=== PATIENT | female | born 1995 | race Caucasian/White ===

== ENCOUNTER 2023-08-14 13:11 | Emergency (ER) | payer BC, OTHER, SELFPAY ==
--- NOTE | 2023-08-14 13:12 | US_ITS ---
[address] [address] Patient Name: HARRIET TOMPKINS MRN: [id number] date: 1995 Sex: F Assigned Patient Location: ER Current Patient Location: ER Accession/Order Number: [id number] Exam Date: 08/14/2023 13:45 Report Date: 08/14/2023 14:47 At the request of: GOMEZ BERG Procedure: US OB transvaginal EXAM: US OB transvaginal INDICATION: Vaginal bleeding COMPARISON: No prior obstetrical ultrasound for current gestation. TECHNIQUE: Transvaginal obstetrical ultrasound with grayscale, color and M-mode Doppler imaging. FINDINGS: AUA: 19 weeks 6 days DOROTHY: 03/12/2024. Single intrauterine gestation with normal-appearing gestational sac. Mean sac diameter 3.0 cm. 3 normal-appearing yolk sacs identified. CRL: 2.9 cm FHR: 172 bpm 3.0 x 1.5 x 1.1 cm subchorionic hematoma. Closed cervix: 4.5 cm in length. Right ovary: 3.3 x 2.2 x 2.1 cm. Corpus luteal cyst within the right ovary. Left ovary: 3.0 x 1.3 x 1.9cm. Normal color Doppler flow to the ovaries. No free fluid in the cul-de-sac. US/US OB transvaginal IMPRESSION: 1. Single viable intrauterine gestation with estimated gestational age 19 weeks 6 days and estimated date of delivery 03/12/2024 by today's ultrasound criteria. 2. Large subchorionic hematoma. 3. A total of 3 yolk sacs identified. Follow-up ultrasound in 1 to 2 weeks as more than one yolk sac can indicate multiple gestations in the appropriate clinical setting. Electronically authenticated by: PRISCILLA VICK Date: 08/14/2023 14:47
[2023-08-14 13:15] VITALS: BP 118/69; PULSE 90; RESP 16; TEMP 36.7; O2SAT 100; BMI 20.1
--- NOTE | 2023-08-14 13:22 | ED.GENADUL1 ---
HPI - General Adult General Chief complaint: Abdominal Pain Stated complaint: 9 weeks light bleeding Time Seen by Provider: 08/14/23 13:12 Source: patient Mode of arrival: walk-in Limitations: no limitations History of Present Illness HPI narrative: patient is a 27-year-old female A1 who presents to the emergency department for the evaluation of mild cramping and light vaginal bleeding at approximately nine weeks . She is seen an DIRECTOR INFORMATION SECURITY at [facility] in [place]. She has not had an ultrasound yet with this . She reports mild low back pain, no fevers or vomiting. No urinary symptoms. She has not passed any clots. Related Data Allergies Allergy/AdvReac Type Severity Reaction Status Date / Time No Known Drug Allergies Allergy Verified 08/14/23 13:18 Review of Systems ROS Constitutional Denies: fever or chills Ears, nose, mouth, and throat Denies: throat pain Cardiovascular Denies: chest pain Respiratory Denies: shortness of breath Gastrointestinal Reports: abdominal pain; Denies: nausea or vomiting Genitourinary Denies: painful urination Musculoskeletal Reports: back pain Integumentary/Breast Denies: rash Neurological Denies: headache Hematologic/Lymphatic Denies: easy bruising PFSH PFSH Social History Smoking status: Never smoker Exam Narrative Exam Narrative: Gen.: Awake, alert, in no distress Head: Normocephalic, atraumatic ENT: Moist mucous membranes Gastrointestinal: Abdomen is soft, nondistended and nontender to palpation Extremities: Moves extremities equally Psych: Normal mood and affect Neuro: No focal neuro deficit Skin: Warm, dry, intact Constitutional Vital Signs, click to edit/add: Last Vital Signs Temp 98.0 F 08/14/23 13:15 Pulse 90 08/14/23 13:15 Resp 16 08/14/23 13:15 BP 118/69 08/14/23 13:15 Pulse Ox 100 08/14/23 13:15 O2 Del Method Room Air 08/14/23 13:15 Course Vital Signs Vital signs: Vital Signs Temperature 98.0 F 08/14/23 13:15 Pulse Rate 90 08/14/23 13:15 Respiratory Rate 16 08/14/23 13:15 Blood Pressure 118/69 08/14/23 13:15 Pulse Oximetry 100 08/14/23 13:15 Oxygen Delivery Method Room Air 08/14/23 13:15 Temperature 98.0 F 08/14/23 13:15 Pulse Rate 90 08/14/23 13:15 Respiratory Rate 16 08/14/23 13:15 Blood Pressure 118/69 08/14/23 13:15 Pulse Oximetry 100 08/14/23 13:15 Oxygen Delivery Method Room Air 08/14/23 13:15 Medical Decision Making MDM Narrative Medical decision making narrative: patient with B positive blood type, quantitative hCG level tracking appropriately with her timeline of gestation. Urine specimen with no urinary tract infection. Ultrasound shows a single intrauterine gestation with appropriate cardiac activity, there is a large subchorionic hematoma. Patient is measuring nine weeks and six days. She was given instructions for pelvic rest. Continue Tylenol. She was instructed to follow closely with her DIRECTOR INFORMATION SECURITY provider due to the subchorionic hematoma. Return to the Emergency Room if symptoms change or worsen. Medical Records Medical records reviewed: Yes I reviewed the patient's medical records Lab Data Lab results reviewed: Yes I reviewed the patient's lab results Labs: Lab Results 08/14/23 08/14/23 08/14/23 Range/Units 13:24 13:34 14:30 HCG, Quant 15490 mIU/mL Urine Color Lt. yellow (YELLOW) Urine Clarity Slightly cloudy A (CLEAR) Urine pH 6.5 (5.0-9.0) Ur Specific [place] <=1.005 A (1.005-1.025) Urine Protein Negative (NEG/TRACE) mg/dL Urine Glucose (UA) Negative (NEGATIVE) mg/dL Urine Ketones Negative (NEGATIVE) mg/dL Urine Occult Blood Small A (NEGATIVE) Urine Nitrite Negative (NEGATIVE) Urine Bilirubin Negative (NEGATIVE) Urine Urobilinogen 0.2 (0.2-1.0) EU/dL Ur Leukocyte Esterase Moderate A (NEGATIVE) Urine RBC None seen (0-2) #/HPF Urine WBC 0-2 A (NONE SEEN) #/HPF Ur Squamous Epith Cells Rare (NONE/RARE) #/LPF Urine Crystals None seen (None Seen) #/HPF Urine Bacteria None seen (NONE SEEN) #/HPF Urine Casts None seen (NONE SEEN) #/LPF Urine Mucus None seen (NONE SEEN) Ur Culture Indicated? No Blood Type B Positive Imaging Data US - abdomen: Attestation: I have reviewed the pertinent imaging results. Radiologist's impression: Procedure: US OB transvaginal Begin Addendum #1 ADDENDUM: Correction to voice recognition error. AUA is 9 weeks and 6 days Original Report EXAM: US OB transvaginal INDICATION: Vaginal bleeding COMPARISON: No prior obstetrical ultrasound for current gestation. TECHNIQUE: Transvaginal obstetrical ultrasound with grayscale, color and M-mode Doppler imaging. FINDINGS: AUA: 19 weeks 6 days DOROTHY: 03/12/2024. Single intrauterine gestation with normal-appearing gestational sac. Mean sac diameter 3. 0 cm. 3 normal-appearing yolk sacs identified. CRL: 2. 9 cm FHR: 172 bpm 3. 0 x 1. 5 x 1. 1 cm subchorionic hematoma. Closed cervix: 4. 5 cm in length. Right ovary: 3. 3 x 2. 2 x 2. 1 cm. Corpus luteal cyst within the right ovary. Left ovary: 3. 0 x 1. 3 x 1. 9cm. Normal color Doppler flow to the ovaries. No free fluid in the cul-de-sac. IMPRESSION: 1. Single viable intrauterine gestation with estimated gestational age 19 weeks 6 days and estimated date of delivery 03/12/2024 by today's ultrasound criteria. 2. Large subchorionic hematoma. 3. A total of 3 yolk sacs identified. Follow-up ultrasound in 1 to 2 weeks as more than one yolk sac can indicate multiple gestations in the appropriate clinical setting. Electronically authenticated by: PRISCILLA VICK Date: 08/14/2023 15:47 Discharge Plan Discharge Chief Complaint: Abdominal Pain Clinical Impression: Vaginal bleeding affecting early , Subchorionic hematoma Time of Disposition Decision: 15:55 Condition: Good Instructions: Threatened Miscarriage (ED), Subchorionic Hemorrhage (ED) Additional Instructions: Follow up closely with your DIRECTOR INFORMATION SECURITY Stand Alone Forms: Portal Instructions Referrals: Physician,Non-Staff, MD [Primary Care Provider] - 1 week
[2023-08-14] MEDS: ACETAMINOPHEN 325 MG TABLET 650 MG PO (13:38)
[2023-08-14 15:12] LABS: Bilirubin Urine NEGATIVE (NEGATIVE); Blood Urine SMALL (NEGATIVE); Clarity Urine SLIGHTLY CLOUDY (CLEAR); Color Urine LT. YELLOW (YELLOW); Glucose Urine UA NEGATIVE (NEGATIVE); Ketones Urine NEGATIVE (NEGATIVE); Leukocyte Esterase Urine MODERATE (NEGATIVE); Nitrite Urine NEGATIVE (NEGATIVE); Protein Urine NEGATIVE (NEG/TRACE); Specific Gravity Urine <=1.005 (1.005-1.025); Urine Microscopic Indicated YES; Urobilinogen Urine 0.2 EU/dL (0.2-1.0); pH Urine 6.5 (5.0-9.0)
[2023-08-14 15:17] LABS: Bacteria Urine NONE SEEN #/HPF (NONE SEEN); Cast Seen? NONE SEEN #/LPF (NONE SEEN); Crystals Seen? None Seen #/HPF (None Seen); Mucus Urine NONE SEEN (NONE SEEN); RBC Urine NONE SEEN #/HPF (0-2); Squamous Epithelial Cell Urine RARE #/LPF (NONE/RARE); WBC Urine 0-2 #/HPF (NONE SEEN)
[2023-08-14 15:18] LABS: Urine Culture Indicated NO
== END 2023-08-14 16:02 | disposition home or self-care (01) ==
PROVIDERS: Physician Assistant; Emergency Provider Emergency Medicine; PCP Obstetrics & Gynecology
DX: O20.9 Hemorrhage in early pregnancy, unspecified (principal); O41.8X10 Other specified disorders of amniotic fluid and membranes, first trimester, not applicable or unspecified; Z3A.09 9 weeks gestation of pregnancy
CPT/HCPCS: 36415; 76817; 80048; 81001; 84702; 86900; 86901; 99285

== ENCOUNTER 2023-11-09 07:42 | Outpatient (OUT) | payer BC, OTHER, SELFPAY ==
--- NOTE | 2023-11-09 | US_ITS ---
[address] [address] Patient Name: HARRIET TOMPKINS MRN: [id number] date: 1995 Sex: F Assigned Patient Location: US Current Patient Location: US Accession/Order Number: [id number] Exam Date: 11/09/2023 09:05 Report Date: 11/12/2023 07:50 At the request of: CIELO GIBBONS Procedure: US OB cervical length EXAMINATION: US OB anatomy, US OB cervical length HISTORY: SCREENING, ANATOMICAL SURVEY Z36.89 COMPARISON: No relevant comparison available. TECHNIQUE: Transabdominal sonographic examination was performed for obstetrical and evaluation. FINDINGS: Number: 1 Heart Rate: 140.6 bpm H.B. /min Amniotic Fluid Volume: Subjectively normal position: Cephalic presentation, longitudinal lie Placental Location: Posterior. Placental edge 3.7 cm from the internal os. Grade 1. Cervix Length: 3.6 cm, closed Normal anatomy: Lateral ventricles, cerebellum, posterior fossa, nose, lips, orbits, four-chamber heart, RVOT, LVOT, diaphragm, stomach, kidneys, abdominal cord insertion, bladder, umbilical arteries, three-vessel cord, spine, extremities BIOMETRY: BPD: 5.5 cm 22 weeks 6 days , 69% HC: 20.6 cm 22 weeks 5 days, 54% AC: 17.8 cm 22 weeks 5 days, 56% FL: 3.7 cm 22 weeks 0 days , 28% EFW:502.4 grams; 1 lb. 2 oz., 50% FL/AC: 21.0 FL/BPD: 67.8 HC/AC: 1.2 GESTATIONAL AGE: Age by EDC: 22 weeks 2 days Age by current US: 22 weeks 4 days DOROTHY by current US: 03/10/2024 DOROTHY by EDC: 03/12/2024 US/US OB cervical length IMPRESSION: Normal anatomy scan Closed cervix measuring 3.6 cm *Reference: [employer] Practice Guideline for the performance of Obstetric Ultrasound Examinations, July 28, 2007. Electronically authenticated by: JAXSON KERR Date: 11/12/2023 07:50
--- NOTE | 2023-11-09 | US_ITS ---
[address] [address] Patient Name: HARRIET TOMPKINS MRN: [id number] date: 1995 Sex: F Assigned Patient Location: US Current Patient Location: US Accession/Order Number: [id number] Exam Date: 11/09/2023 09:05 Report Date: 11/12/2023 07:50 At the request of: CIELO GIBBONS Procedure: US OB anatomy EXAMINATION: US OB anatomy, US OB cervical length HISTORY: SCREENING, ANATOMICAL SURVEY Z36.89 COMPARISON: No relevant comparison available. TECHNIQUE: Transabdominal sonographic examination was performed for obstetrical and evaluation. FINDINGS: Number: 1 Heart Rate: 140.6 bpm H.B. /min Amniotic Fluid Volume: Subjectively normal position: Cephalic presentation, longitudinal lie Placental Location: Posterior. Placental edge 3.7 cm from the internal os. Grade 1. Cervix Length: 3.6 cm, closed Normal anatomy: Lateral ventricles, cerebellum, posterior fossa, nose, lips, orbits, four-chamber heart, RVOT, LVOT, diaphragm, stomach, kidneys, abdominal cord insertion, bladder, umbilical arteries, three-vessel cord, spine, extremities BIOMETRY: BPD: 5.5 cm 22 weeks 6 days , 69% HC: 20.6 cm 22 weeks 5 days, 54% AC: 17.8 cm 22 weeks 5 days, 56% FL: 3.7 cm 22 weeks 0 days , 28% EFW:502.4 grams; 1 lb. 2 oz., 50% FL/AC: 21.0 FL/BPD: 67.8 HC/AC: 1.2 GESTATIONAL AGE: Age by EDC: 22 weeks 2 days Age by current US: 22 weeks 4 days DOROTHY by current US: 03/10/2024 DOROTHY by EDC: 03/12/2024 US/US OB anatomy IMPRESSION: Normal anatomy scan Closed cervix measuring 3.6 cm *Reference: [employer] Practice Guideline for the performance of Obstetric Ultrasound Examinations, July 28, 2007. Electronically authenticated by: JAXSON KERR Date: 11/12/2023 07:50
--- OUTSIDE RECORDS SUMMARY | 2023-11-09 07:46 | XMS_ITS | CCD ---
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 Name Role Phone EDWIGE, DR BUCK Admitting Unavailable EDWIGE, DR BUCK Attending Unavailable REQUEST, NONE LISTED Primary Care Unavaila ble EDWIGE, DR BUCK Consulting Unavailable EDWIGE, DR BUCK Admitting Unavailable EDWIGE, DR BUCK Attending Unavailable REQUEST, NONE LISTED Primary Care Unavaila an KERR, DR JAXSON Fan Consulting Unavailable EDWIGE, DR BUCK Consulting Unavailable EDWIGE, CIELO Attending Unavailable Problems Problem Classification Problem Date Documented Date Episodic/Chronic Immunizations and screening for infectious disease (1 source) Encounter for screening for human papillomavirus (HPV); Translations: [ENC SCREENING HUMAN PAPILLOMAVIRUS] Onset: 05-10-2021 Episodic Lymphadenitis (4 sources) Localized enlarged lymph nodes; Translations: [LOCALIZED ENLARGED LYMPH NODES] Onset: 05-13-2021 Episodic Other screening for suspected conditions (not mental disorders or infectious disease) (4 sources) Encounter for screening for malignant neoplasm of cervix; Translations: [ENC SCREENING MALIG NEOPLASM CERV] Onset: 05-03-2021 Episodic Results Test Name Value Interpretation Reference Range Facil ity US THYROIDon 05-15-2021 US THYROID EXAMINATION: US THYROID HISTORY: Localized enlarged lymph nodes COMPARISON: No relevant comparison available. TECHNIQUE: Sonographic images of the thyroid gland were obtained. FINDINGS: The right thyroid lobe measures 3.9 x 1.1 x 4.2 cm. Normal in size, contour and echotexture with no focal nodules. The thyroid isthmus measures 2.1 mm, homogeneous. No focal nodule The left thyroid lobe measures 4.1 x 0.1 0.3 cm per normal in size, contour and echotexture with no focal nodules Identified in the left neck corresponding to the patient's palpable abnormality are 2 normal size normal morphology lymph nodes measuring 1.5 x 0.2 x 0.6 cm and 1.5 x 0.3 x 1.2 cm IMPRESSION: Normal thyroid gland Two normal size normal morphology left neck lymph nodes corresponding to the patient's palpable mass Electronically authenticated by: JAXSON KERR Date: 2021-05-15 07:09 [address] [facility] CBC AUTO DIFFon 05-13-2021 BASO # 0.1 103/ul Normal 0.0-0.[address] [facility] Comment on above: Performed By: #### C BC #### [facility] [address] [place], [place] [id number] Ellen Sally Basophils/100 WBC (Bld) 0.8 % Normal 0.2-2.0 [facility] Comment on above: Performed By: #### C BC #### [facility] [address] [place], [place] [id number] Ellen Sally EO # 0.3 103/ul Normal 0.0-0.[address] [facility] Comment on above: Performed By: #### C BC #### [facility] [address] [place], [place] [id number] Ellen Sally Eosinophils/100 WBC (Bld) 3.6 % Normal 0.9-7.0 [facility] Comment on above: Performed By: #### C BC #### [facility] [address] [place], [place] [id number] Ellen Sally Erythrocyte distribution width (RBC) [Ratio] 12.4 % Normal 11.0-15.[address] [facility] Comment on above: Performed By: #### C BC #### [facility] [address] [place], [place] [id number] Ellen Sally Hematocrit (Bld) [Volume fraction] 42.3 % Normal 36.0-48.0 [facility] Comment on above: Performed By: #### C BC #### [facility] [address] [place] [address] Ellen Sally Hemoglobin (Bld) [Mass/Vol] 14.4 g/dL Normal 12.0-16.[address] [facility] Comment on above: Performed By: #### C BC #### [facility] [address] [address] Ellen Sally IG # 0.01 10e3/ul Normal 0.00-0.03 [facility] Comment on above: Performed By: #### C BC #### [facility] [address] [address] Ellen Sally IG % 0.1 % Normal 0.0-0.5 [facility] Comment on above: Performed By: #### C BC #### [facility] [address] [place] [address] Ellen Sally LYMPH # 2.4 103/ul Normal 1.2-3.[address] [facility] Comment on above: Performed By: #### C BC #### [facility] [address] [place] [address] Ellen Sally Lymphocytes/100 WBC (Bld) 30.1 % Normal 20.5-60.0 [facility] Comment on above: Performed By: #### C BC #### [facility] [address] [place] [address] Ellen Sally MANUAL DIFF REQ NO Normal [facility] Comment on above: Performed By: #### C BC #### [facility] [address] [place] [address] Ellen Sally MCH (RBC) [Entitic mass] 30.4 pg Normal 26.7-34.0 [facility] Comment on above: Performed By: #### C BC #### [facility] [address] [place] [address] Ellen Sally MCHC (RBC) [Mass/Vol] 34.0 g/dL Normal 29.9-35.[address] [facility] Comment on above: Performed By: #### C BC #### [facility] [address] [place] [address] Ellen Sally MCV (RBC) [Entitic vol] 89.4 fL Normal 81.0-99.0 [facility] Comment on above: Performed By: #### C BC #### [facility] [address] [place] [address] Ellenaixa [place] MONO # 0.4 103/ul Normal 0.3-0.[address] [facility] Comment on above: Performed By: #### C BC #### [facility] [address] [place], [place] [id number] Ellenaixa [place] Monocytes/100 WBC (Bld) 5.4 % Normal 1.7-12.0 [facility] Comment on above: Performed By: #### C BC #### [facility] [address] [place] [address] Ellen Salyl NEUT # 4.7 103/ul Normal 1.4-6.[address] [facility] Comment on above: Performed By: #### C BC #### [facility] [address] [place], [place] [id number] Ellenaixa Zavala Neutrophils/100 WBC (Bld) 60.0 % Normal 43.0-75.[address] [facility] Comment on above: Performed By: #### C BC #### [facility] [address] [place], [place] [id number] Ellenaixa Zavala Platelet mean volume (Bld) [Entitic vol] 9.4 fL Critically low 9.5-13.[address] [facility] Comment on above: Performed By: #### C BC #### [facility] [address] [place] [address] Ellen Sally PLT 449 103/ul Normal 150-[address] [facility] Comment on above: Performed By: #### C BC #### [facility] [address] [place], [place] [id number] Ellen Sally RBC 4.73 106/ul Normal 4.20-5.[address] [facility] Comment on above: Performed By: #### C BC #### [facility] [address] [place], [place] [id number] Ellen Sally WBC 7.8 103/ul Normal 4.0-11.[address] [facility] Comment on above: Performed By: #### C BC #### [facility] [address] [place], [place] [id number] Ellen Sally PAP ACOG PANEL 2: 21 to 29on 05-08-2021 . . Normal [facility] Comment on above: Performed By: #### [id number] #### [facility] [address] [place] [address] Ellen Zavala Age Gdln ACOG Testing 21-29 Normal [facility] Comment on above: Performed By: #### [id number] #### [facility] [address] [place] [address] Ellen Zavala DIAGNOSIS: Comment Normal [facility] Comment on above: Result Comment: NEGA TIVE FOR INTRAEPITHELIAL LESION OR MALIGNANCY. Performed By: #### [id number] #### [facility] [address] [place] [address] Ellen Zavala Methodology: Comment [facility] Comment on above: Result Comment: This liquid based ThinPrep(R) pap test was screened with the use of an image guided system. Performed By: #### [id number] #### [facility] [address] [place] [address] Ellen Zavala Note: Comment [facility] Comment on above: Result Comment: The Pap smear is a screening test designed to aid in the detection of premalignant and malignant conditions of the uterine cervix. It is not a diagnostic procedure and should not be used as the sole means of detecting cervical cancer. Both false-positive and false-negative reports do occur. . Performed By: #### [id number] #### [facility] [address] [place] [address] Ellen Zavala Performed by: Comment Normal [facility] Comment on above: Result Comment: Olga Guidry, Senior Chemical Engineer (ASCP) Performed By: #### 4 [id number] #### [facility] [address] [place] [address] Ellen Zavala Reflex Criteria: Comment [facility] Comment on above: Result Comment: The HPV DNA reflex criteria were not met with this specimen result therefore, no HPV testing was performed. . Performed By: #### [id number] #### [facility] [address] [place] [address] Ellen Zavala Specimen adequacy: Comment Normal [facility] Comment on above: Result Comment: Sati sfactory for evaluation. Endocervical and/or squamous metaplastic cells (endocervical component) are present. Performed By: #### 4 [id number] #### [facility] [address] [id number] Ellen Zavala Coding Summaryon 06-25-2020 Coding Summary CODING DATE: 06/25/2020 [facility] STATUS: PAYOR: Workers Compensation ADMIT DX: REASON FOR VISIT DX: S61.210A Laceration without foreign body of right index finger without damage to nail, initial encounter FINAL DX: PRINCIPAL: O9A.212 Injury, poisoning and certain other consequences of external causes complicating , second trimester SECONDARY: S61.210A Laceration without foreign body of right index finger without damage to nail, initial encounter W26.8XXA Contact with other sharp object(s), not elsewhere classified, initial encounter Y99.0 Civilian activity done for income or pay Z3A.26 26 weeks gestation of PYMT PROC APC STAT DESCRIPTION DOCTOR NAME DATE NOTE: The code number assigned matches the documented diagnosis and / or procedure in the patient's chart. However, the narrative phrase printed from the coding software may appear abbreviated, or result in slightly different terminology. Coded By: Jesus Manuel Ayala Date Saved: 06/25/2020 11:13 am [facility] Coding Summary CODING DATE: 06/25/2020 [facility] STATUS: Home PAYOR: Workers Compensation ADMIT DX: REASON FOR VISIT DX: S61.210A Laceration without foreign body of right index finger without damage to nail, initial encounter FINAL DX: PRINCIPAL: O9A.212 Injury, poisoning and certain other consequences of external causes complicating , second trimester SECONDARY: S61.210A Laceration without foreign body of right index finger without damage to nail, initial encounter W26.8XXA Contact with other sharp object(s), not elsewhere classified, initial encounter Y99.0 Civilian activity done for income or pay Z3A.26 26 weeks gestation of PYMT PROC APC STAT DESCRIPTION DOCTOR NAME DATE NOTE: The code number assigned matches the documented diagnosis and / or procedure in the patient's chart. However, the narrative phrase printed from the coding software may appear abbreviated, or result in slightly different terminology. Coded By: Jesus Manuel Ayala Date Saved: 06/25/2020 11:10 am [facility] Consent Formson 06-24-2020 Consent Forms [id number] [facility] ED Clinical Summaryon 2019 ED Clinical Summary [facility] - Emergency Department [address] [place], [place] [id number] ED Clinical Summary PERSON INFORMATION Name: HARRIET TOMPKINS Age: 24 Years Sex: FEMALE : 1995 MRN: Acct#: Visit Reason: Finger laceration; RIGHT FINGER LACERATION Arrival: 06/24/2020 08:39:04 Discharge: 06/24/2020 09:50:00 LOS: 000 01:11 Check In: 06/24/2020 08:39:04 Checkout:06/24/2020 09:50:00 Address: [address] [place] [id number] PCP: Provider, None PROVIDER INFORMATION Provider Role Assigned Unassigned Chandler Gallo ED Provider 06/24/2020 09:04:13 Penny RN, [place] ED Nurse 06/24/2020 09:06:19 VITALS INFORMATION Vital Sign Triage Latest Temperature Tympanic Temperature Temporal Artery Pulse Rate 104 bpm 104 bpm O2 Sat 95 % 95 % Respiratory Rate 16 br/min 16 br/min Blood Pressure /62 mmHg /62 mmHg MEDICAL INFORMATION Medications Given: Allergy Information: No known allergies PHYSICIAN DOCUMENTATION Patient: HARRIET TOMPKINS Age: 24 years Sex: FEMALE : 1995 Associated Diagnoses: Finger laceration Author: Chandler Gallo Basic Information Additional information: Chief Complaint from Nursing Triage Note : Chief Complaint 06/24/2020 8:55 EDT Chief Complaint I cut my finger at work. . History of Present Illness Patient comes in with a laceration to the right index finger. This occurred just prior to arrival while at work. She does admit to providing some clotting paste to the right finger after the incident. Denies any other injuries. Denies any bony pain. Last tetanus shot was 3 years ago. She is 26 weeks . Denies any issues with her currently. Review of Systems Constitutional symptoms: No fever, no chills. Skin symptoms: cut right index finger. Gastrointestinal symptoms: No nausea, no vomiting. Musculoskeletal symptoms: No Joint pain, Hematologic/Lymphatic symptoms: Bleeding tendency negative, bruising tendency negative. Health Status Allergies: Allergic Reactions (Selected) No known allergies. Past Medical/ Family/ Social History Medical history: No active or resolved past medical history items have been selected or recorded.. Surgical history: No active procedure history items have been selected or recorded.. Family history: No family history items have been selected or recorded.. Social history: Social & Psychosocial Habits Alcohol 07/29/2019 Alcohol Use: Past Substance Abuse 07/29/2019 Substance use: Never Tobacco 07/29/2019 Smoking tobacco use: 10 or more cigarettes (1/ Number used per day: 1/2 ppd Electronic Cigarette/Vaping 07/29/2019 Electronic Cigarette Use: Never . Problem list: Active Problems (1) . Physical Examination Vital Signs Vital Signs 06/24/2020 8:55 EDT Temperature Oral 37.1 DegC Peripheral Pulse Rate 104 bpm HI Respiratory Rate 16 br/min Systolic Blood Pressure 100 mmHg Diastolic Blood Pressure 62 mmHg SpO2 95 % Oxygen Therapy Room air . Measurements 06/24/2020 9:12 EDT Weight Dosing 42.640 kg 06/24/2020 9:12 EDT Height/Length Dosing 149.860 cm 06/24/2020 8:55 EDT Height/Length Estimated 149.860 cm Weight Estimated 42.640 kg . General: Alert, mild distress. Skin: There is 1 cm laceration tunnel in character just proximal to the DIP joint area of the right index finger. The wound is well approximated.. Musculoskeletal: Normal ROM, Demonstrates full range of motion with her right index finger. No bony pain is noted.. Psychiatric: Cooperative, appropriate mood & affect. Medical Decision Making Differential Diagnosis: Laceration finger. Reexamination/ Reevaluation Very pleasant 24-year-old female who presents with a laceration to her right index finger just proximal to her DIP joint area. Laceration is 1 cm in length. Partial-thickness. The wound was cleaned. Dermabond was placed on the finger. Patient was finger was placed in a splint. Her last tetanus shot was 3 years ago. Care instructions were discussed. Wound care was also discussed and patient was advised to watch for redness, discharge, or fever. Further follow-up with the ED was recommended if any secondary signs of infection were noted. Impression and Plan Diagnosis Finger laceration ([id number] S61.219A, Discharge, Medical) Plan Condition: Improved. Disposition: Discharged: Time 06/24/2020 09:29:00, to home. Patient was given the following educational materials: Laceration Care, Adult, [id number], Laceration Care, Adult, [id number]-Avkv. Follow up with: None Provider Within 3 to 5 days; Return to Emergency Department Within 3 to 5 days. Counseled: Patient, Regarding diagnosis, Regarding diagnostic results, Regarding treatment plan, Regarding prescription, Patient indicated understanding of instructions. DISCHARGE INFORMATION: Discharge Disposition: Home Discharge Location: Home PATIENT EDUCATION INFORMATION Instructions: Laceration Care, Adult, [id number] Follow-Up: With: Address: When: Return to Emergency Department Within 3 to 5 days With: Address: When: None Provider Within 3 to 5 days DIAGNOSIS: Finger laceration Patient Understands: Yes - Patient/family/caregiv er verbalizes understanding of instructions given Comment: [facility] ED Note - Physicianon 2019 ED Note - Physician Patient: HARRIET TOMPKINS Age: 24 years Sex: FEMALE : 1995 Associated Diagnoses: Finger laceration Author: Chandler Gallo Basic Information Additional information: Chief Complaint from Nursing Triage Note : Chief Complaint 06/24/2020 8:55 EDT Chief Complaint I cut my finger at work. . History of Present Illness Patient comes in with a laceration to the right index finger. This occurred just prior to arrival while at work. She does admit to providing some clotting paste to the right finger after the incident. Denies any other injuries. Denies any bony pain. Last tetanus shot was 3 years ago. She is 26 weeks . Denies any issues with her currently. Review of Systems Constitutional symptoms: No fever, no chills. Skin symptoms: cut right index finger. Gastrointestinal symptoms: No nausea, no vomiting. Musculoskeletal symptoms: No Joint pain, Hematologic/Lymphatic symptoms: Bleeding tendency negative, bruising tendency negative. Health Status Allergies: Allergic Reactions (Selected) No known allergies. Past Medical/ Family/ Social History Medical history: No active or resolved past medical history items have been selected or recorded.. Surgical history: No active procedure history items have been selected or recorded.. Family history: No family history items have been selected or recorded.. Social history: Social & Psychosocial Habits Alcohol 07/29/2019 Alcohol Use: Past Substance Abuse 07/29/2019 Substance use: Never Tobacco 07/29/2019 Smoking tobacco use: 10 or more cigarettes (1/ Number used per day: 1/2 ppd Electronic Cigarette/Vaping 07/29/2019 Electronic Cigarette Use: Never . Problem list: Active Problems (1) . Physical Examination Vital Signs Vital Signs 06/24/2020 8:55 EDT Temperature Oral 37.1 DegC Peripheral Pulse Rate 104 bpm HI Respiratory Rate 16 br/min Systolic Blood Pressure 100 mmHg Diastolic Blood Pressure 62 mmHg SpO2 95 % Oxygen Therapy Room air . Measurements 06/24/2020 9:12 EDT Weight Dosing 42.640 kg 06/24/2020 9:12 EDT Height/Length Dosing 149.860 cm 06/24/2020 8:55 EDT Height/Length Estimated 149.860 cm Weight Estimated 42.640 kg . General: Alert, mild distress. Skin: There is 1 cm laceration tunnel in character just proximal to the DIP joint area of the right index finger. The wound is well approximated.. Musculoskeletal: Normal ROM, Demonstrates full range of motion with her right index finger. No bony pain is noted.. Psychiatric: Cooperative, appropriate mood & affect. Medical Decision Making Differential Diagnosis: Laceration finger. Reexamination/ Reevaluation Very pleasant 24-year-old female who presents with a laceration to her right index finger just proximal to her DIP joint area. Laceration is 1 cm in length. Partial-thickness. The wound was cleaned. Dermabond was placed on the finger. Patient was finger was placed in a splint. Her last tetanus shot was 3 years ago. Care instructions were discussed. Wound care was also discussed and patient was advised to watch for redness, discharge, or fever. Further follow-up with the ED was recommended if any secondary signs of infection were noted. Impression and Plan Diagnosis Finger laceration ([id number] S61.219A, Discharge, Medical) Plan Condition: Improved. Disposition: Discharged: Time 06/24/2020 09:29:00, to home. Patient was given the following educational materials: Laceration Care, Adult, [id number], Laceration Care, Adult, Ooov-kg-Aipt. Follow up with: None Provider Within 3 to 5 days; Return to Emergency Department Within 3 to 5 days. Counseled: Patient, Regarding diagnosis, Regarding diagnostic results, Regarding treatment plan, Regarding prescription, Patient indicated understanding of instructions. [Electronically Signed on: 06/24/2020 09:44 EDT] Chandler Gallo MD [Verified on: 06/24/2020 09:44 EDT] Chandler Gallo MD [facility] ED Note-Nursingon 06-24-2020 ED Note-Nursing Ambulates to room 7 with steady gait. AAOx3. CEBALLOS. SKin warm,dry ,pink.REspirations regular, even.. States was at work and cut right index finger on a piece of metal. States put blood clotting stuff on it . No active bleeding noted. PMS intact right wrist. Has C shaped flap dorsal aspect right finger over PIP joint that is 1cm . Awaiting exam. [facility] ED Patient Education Noteon 06-24-2020 ED Patient Education Note Education Materials Dermatology Laceration Care, Adult A laceration is a cut that may go through all layers of the skin. The cut may also go into the tissue that is right under the skin. Some cuts heal on their own. Others need to be closed with stitches (sutures), jaye, skin adhesive strips, or skin glue. Taking care of your injury lowers your risk of infection, helps your injury to heal better, and may prevent scarring. Supplies needed: ? Soap. ? Water. ? Hand baggage inspector. ? Bandage (dressing). ? Antibiotic ointment. ? Clean towel. How to take care of your cut Wash your hands with soap and water before touching your wound or changing your bandage. If soap and water are not available, use hand baggage inspector. If your doctor used stitches or jaye: ? Keep the wound clean and dry. ? If you were given a bandage, change it at least once a day as told by your doctor. You should also change it if it gets wet or dirty. ? Keep the wound completely dry for the first 24 hours, or as told by your doctor. After that, you may take a shower or a bath. Do not get the wound soaked in water until after the stitches or jaye have been removed. ? Clean the wound once a day, or as told by your doctor: ? Wash the wound with soap and water. ? Rinse the wound with water to remove all soap. ? Pat the wound dry with a clean towel. Do not rub the wound. ? After you clean the wound, put a thin layer of antibiotic ointment on it as told by your doctor. This ointment: ? Helps to prevent infection. ? Keeps the bandage from sticking to the wound. ? Have your stitches or jaye removed as told by your doctor. If your doctor used skin adhesive strips: ? Keep the wound clean and dry. ? If you were given a bandage, you should change it at least once a day as told by your doctor. You should also change it if it gets wet or dirty. ? Do not get the skin adhesive strips wet. You can take a shower or a bath, but keep the wound dry. ? If the wound gets wet, pat it dry with a clean towel. Do not rub the wound. ? Skin adhesive strips fall off on their own. You can trim the strips as the wound heals. Do not remove any strips that are still stuck to the wound. They will fall off after a while. If your doctor used skin glue: ? Try to keep your wound dry, but you may briefly wet it in the shower or bath. Do not soak the wound in water, such as by swimming. ? After you take a shower or a bath, gently pat the wound dry with a clean towel. Do not rub the wound. ? Do not do any activities that will make you really sweaty until the skin glue has fallen off on its own. ? Do not apply liquid, cream, or ointment medicine to your wound while the skin glue is still on. ? If you were given a bandage, you should change it at least once a day or as told by your doctor. You should also change it if it gets dirty or wet. ? If a bandage is placed over the wound, do not let the tape touch the skin glue. ? Do not pick at the glue. The skin glue usually stays on for 5?10 days. Then, it falls off the skin. General instructions ? Take zwrc-xpg-qcrfwgi and prescription medicines only as told by your doctor. ? If you were given antibiotic medicine or ointment, take or apply it as told by your doctor. Do not stop using it even if your condition improves. ? Do not scratch or pick at the wound. ? Check your wound every day for signs of infection. Watch for: ? Redness, swelling, or pain. ? Fluid, blood, or pus. ? Raise (elevate) the injured area above the level of your heart while you are sitting or lying down. ? If directed, put ice on the affected area: ? Put ice in a plastic bag. ? Place a towel between your skin and the bag. ? Leave the ice on for 20 minutes, 2?3 times a day. ? Prevent scarring by covering your wound with sunscreen of at least 30 SPF whenever you are outside after your wound has healed. ? Keep all follow-up visits as told by your doctor. This is important. Get help if: ? You got a tetanus shot and you have any of these problems at the injection site: ? Swelling. ? Very bad pain. ? Redness. ? Bleeding. ? You have a fever. ? A wound that was closed breaks open. ? You notice a bad smell coming from your wound or your bandage. ? You notice something coming out of the wound, such as wood or glass. ? Medicine does not relieve your pain. ? You have more redness, swelling, or pain at the site of your wound. ? You have fluid, blood, or pus coming from your wound. ? You notice a change in the color of your skin near your wound. ? You need to change the bandage often because fluid, blood, or pus is coming from the wound. ? You start to have a new rash. ? You start to have numbness around the wound. Get help right away if: ? You have very bad swelling around the wound. ? Your pain suddenly gets worse and is very bad. ? You notice painful lumps near the wound or anywhere on your body. ? You have a red streak going away from your wound. ? The wound is on your hand or foot, and: ? You cannot move a finger or toe. ? Your fingers or toes look pale or bluish. Summary ? A laceration is a cut that may go through all layers of the skin. The cut may also go into the tissue right under the skin. ? Some cuts heal on their own. Others need to be closed with stitches, jaye, skin adhesive strips, or skin glue. ? Follow your doctor's instructions for caring for your cut. Proper care of a cut lowers the risk of infection, helps the cut heal better, and prevents scarring. This information is not intended to replace advice given to you by your health care provider. Make sure you discuss any questions you have with your health care provider. Document Released: 04/01/2009 Document Revised: 12/12/2018 Document Reviewed: 11/03/2018 Elsevier Patient Education ? 2019 [employer] Normal [facility] ED Patient Summaryon 020 ED Patient Summary [facility] - Emergency Department [address] [place] [address] PATIENT DISCHARGE INSTRUCTIONS Patient Information Name: HARRIET TOMPKINS Age: 24 Years Date of : 1995 Reason For Visit: Finger laceration; RIGHT FINGER LACERATION Arrival Time: 06/24/2020 08:39:04 Primary Care Physician: Provider, None Attending Physician: Chandler Gallo Comment: Visit Diagnosis: Diagnoses This Visit Finger laceration ([id number]) Finger laceration (S61.219A) Prescription Information: If you have been given a prescription for narcotics, seek immediate medical attention if you have any difficulty breathing or any sudden status changes such as confusion and sleepiness. If you or anyone you know is experiencing suicidal thoughts, mental health, alcohol and/or drug addiction problems; contact the [facility] 20/05 Crisis Hotline -Text 4HOPE oz [id number]. If you received any narcotics, sedation, or any other medication that causes drowsiness for the next 24 hours, unless otherwise directed: ? Do not drive a car. ? Do not operate machinery such as power tools, lawn mowers, drills, sewing machines, or stoves ? Avoid alcoholic beverages and drugs for allergies, nerves, or sleep ? Do not make important personal or business decisions or sign any legal documents With: Address: When: Return to Emergency Department Within 3 to 5 days With: Address: When: None Provider Within 3 to 5 days Medication Information: The exam and treatment you received today in the [facility] Emergency Department were for an urgent problem and are not intended as complete care. It is important for you to follow up with a doctor, nurse practitioner, or physician?s assistant loan processor for ongoing care. If your symptoms become worse or you do not improve as expected and you are unable to reach your usual health care provider, you should return to the Emergency Department, we are available 24 hours a day. For those patients who have received Radiology results, the interpretation of your X-ray as given to you by our Emergency Department physician is only a preliminary report. The Radiologist will review your films and if there is a change in the diagnosis you will be notified by phone. Please make sure you have provided a working phone number so we can reach you if necessary. In the event that you had a lab culture while you were a patient in the Emergency Department, you will be notified by phone if there is a need to change your antibiotic. Please make sure you have provided a working phone number so we can reach you if necessary. [facility] Emergency Department has provided you with a complete list of medications post discharge. Please inform your paper cap machine operator/provider of your visit and for further instruction on these medications. Any specific questions regarding your chronic medications and dosages should be discussed with your primary care physician(s) and/or pharmacist. Visit Information Allergies: Substance Reaction Symptoms Type Comments No known allergies Drug Vital Signs: Vitals and Measurements this Visit (last charted value for your 06/24/2020 visit) Vital Signs This Visit Temperature Oral: 37.1 DegC Peripheral Pulse Rate: 104 bpm Respiratory Rate: 16 br/min Systolic Blood Pressure: 100 mmHg Diastolic Blood Pressure: 62 mmHg SpO2: 95 % Oxygen Therapy: Room air Measurements This Visit Height/Length Dosin.860 cm Height/Length Estimated: 149.860 cm Weight Dosin.640 kg Weight Estimated: 42.640 kg Problems List: Problem Onset Comments Patient Education Laceration Care, Adult A laceration is a cut that may go through all layers of the skin. The cut may also go into the tissue that is right under the skin. Some cuts heal on their own. Others need to be closed with stitches (sutures), jaye, skin adhesive strips, or skin glue. Taking care of your injury lowers your risk of infection, helps your injury to heal better, and may prevent scarring. Supplies needed: ? Soap. ? Water. ? Hand baggage inspector. ? Bandage (dressing). ? Antibiotic ointment. ? Clean towel. How to take care of your cut Wash your hands with soap and water before touching your wound or changing your bandage. If soap and water are not available, use hand baggage inspector. If your doctor used stitches or jaye: ? Keep the wound clean and dry. ? If you were given a bandage, change it at least once a day as told by your doctor. You should also change it if it gets wet or dirty. ? Keep the wound completely dry for the first 24 hours, or as told by your doctor. After that, you may take a shower or a bath. Do not get the wound soaked in water until after the stitches or jaye have been removed. ? Clean the wound once a day, or as told by your doctor: ? Wash the wound with soap and water. ? Rinse the wound with water to remove all soap. ? Pat the wound dry with a clean towel. Do not rub the wound. ? After you clean the wound, put a thin layer of antibiotic ointment on it as told by your doctor. This ointment: ? Helps to prevent infection. ? Keeps the bandage from sticking to the wound. ? Have your stitches or jaye removed as told by your doctor. If your doctor used skin adhesive strips: ? Keep the wound clean and dry. ? If you were given a bandage, you should change it at least once a day as told by your doctor. You should also change it if it gets wet or dirty. ? Do not get the skin adhesive strips wet. You can take a shower or a bath, but keep the wound dry. ? If the wound gets wet, pat it dry with a clean towel. Do not rub the wound. ? Skin adhesive strips fall off on their own. You can trim the strips as the wound heals. Do not remove any strips that are still stuck to the wound. They will fall off after a while. If your doctor used skin glue: ? Try to keep your wound dry, but you may briefly wet it in the shower or bath. Do not soak the wound in water, such as by swimming. ? After you take a shower or a bath, gently pat the wound dry with a clean towel. Do not rub the wound. ? Do not do any activities that will make you really sweaty until the skin glue has fallen off on its own. ? Do not apply liquid, cream, or ointment medicine to your wound while the skin glue is still on. ? If you were given a bandage, you should change it at least once a day or as told by your doctor. You should also change it if it gets dirty or wet. ? If a bandage is placed over the wound, do not let the tape touch the skin glue. ? Do not pick at the glue. The skin glue usually stays on for 5?10 days. Then, it falls off the skin. General instructions ? Take cbvw-jwq-pdekqit and prescription medicines only as told by your doctor. ? If you were given antibiotic medicine or ointment, take or apply it as told by your doctor. Do not stop using it even if your condition improves. ? Do not scratch or pick at the wound. ? Check your wound every day for signs of infection. Watch for: ? Redness, swelling, or pain. ? Fluid, blood, or pus. ? Raise (elevate) the injured area above the level of your heart while you are sitting or lying down. ? If directed, put ice on the affected area: ? Put ice in a plastic bag. ? Place a towel between your skin and the bag. ? Leave the ice on for 20 minutes, 2?3 times a day. ? Prevent scarring by covering your wound with sunscreen of at least 30 SPF whenever you are outside after your wound has healed. ? Keep all follow-up visits as told by your doctor. This is important. Get help if: ? You got a tetanus shot and you have any of these problems at the injection site: ? Swelling. ? Very bad pain. ? Redness. ? Bleeding. ? You have a fever. ? A wound that was closed breaks open. ? You notice a bad smell coming from your wound or your bandage. ? You notice something coming out of the wound, such as wood or glass. ? Medicine does not relieve your pain. ? You have more redness, swelling, or pain at the site of your wound. ? You have fluid, blood, or pus coming from your wound. ? You notice a change in the color of your skin near your wound. ? You need to change the bandage often because fluid, blood, or pus is coming from the wound. ? You start to have a new rash. ? You start to have numbness around the wound. Get help right away if: ? You have very bad swelling around the wound. ? Your pain suddenly gets worse and is very bad. ? You notice painful lumps near the wound or anywhere on your body. ? You have a red streak going away from your wound. ? The wound is on your hand or foot, and: ? You cannot move a finger or toe. ? Your fingers or toes look pale or bluish. Summary ? A laceration is a cut that may go through all layers of the skin. The cut may also go into the tissue right under the skin. ? Some cuts heal on their own. Others need to be closed with stitches, jaye, skin adhesive strips, or skin glue. ? Follow your doctor's instructions for caring for your cut. Proper care of a cut lowers the risk of infection, helps the cut heal better, and prevents scarring. This information is not intended to replace advice given to you by your health care provider. Make sure you discuss any questions you have with your health care provider. Document Released: 04/01/2009 Document Revised: 12/12/2018 Document Reviewed: 11/03/2018 [employer] Patient Education ? 2019 [employer]. Viruses or Bacteria What?s got you sick? Antibiotics only treat bacterial infections. Viral illnesses cannot be treated with antibiotics. When an antibiotic is not prescribed, ask your healthcare professional for tips on how to relieve symptoms and feel better. Usual Cause Illness Viruses Bacteria Antibiotic Needed Cold/Runny Nose NO Bronchitis/Chest Cold (in otherwise healthy children and adults) NO Whooping Cough Yes Flu NO Strep Throat Yes Sore Throat (except strep) NO Fluid in the middle ear (otitis media with effusion) NO Urinary Tract Infection Yes Antibiotics Aren?t Always the Answer www.cdc.gov/getsmart GET SMART Know When Antibiotics Work U.S. Department of Health and Human Services Centers for Disease Control and Prevention June 2014 [facility] Release of Informationon Release of Information [id number]#[id number] [place] [address] Release of Informationon Release of Information [id number]#1.0 [facility] Coding Summaryon 07-30-2019 Coding Summary CODING DATE: 07/30/2019 [facility] STATUS: PAYOR: Medicaid O ADMIT DX: REASON FOR VISIT DX: R10.30 Lower abdominal pain, unspecified N93.9 Abnormal uterine and vaginal bleeding, unspecified FINAL DX: PRINCIPAL: O41.8X10 Other specified disorders of amniotic fluid and membranes, first trimester, not applicable or unspecified SECONDARY: O99.331 Smoking (tobacco) complicating , first trimester F17.200 Nicotine dependence, unspecified, uncomplicated PYMT PROC APC STAT DESCRIPTION DOCTOR NAME DATE NOTE: The code number assigned matches the documented diagnosis and / or procedure in the patient's chart. However, the narrative phrase printed from the coding software may appear abbreviated, or result in slightly different terminology. Coded By: Jesus Manuel Ayala Date Saved: 07/30/2019 04:37 pm [facility] Coding Summary CODING DATE: 07/30/2019 [facility] STATUS: Home PAYOR: Medicaid O ADMIT DX: REASON FOR VISIT DX: R10.30 Lower abdominal pain, unspecified N93.9 Abnormal uterine and vaginal bleeding, unspecified FINAL DX: PRINCIPAL: O41.8X10 Other specified disorders of amniotic fluid and membranes, first trimester, not applicable or unspecified SECONDARY: O99.331 Smoking (tobacco) complicating , first trimester F17.200 Nicotine dependence, unspecified, uncomplicated PYMT PROC APC STAT DESCRIPTION DOCTOR NAME DATE NOTE: The code number assigned matches the documented diagnosis and / or procedure in the patient's chart. However, the narrative phrase printed from the coding software may appear abbreviated, or result in slightly different terminology. Revised Coded By: Jesus Manuel Ayaal Revised Date Saved: 07/30/2019 04:29 pm [facility] .Auto Diff 1on 07-29-2019 Auto [place]pine % 6 % Normal 1-12 [facility] Comment on above: Performed By: #### 7 516204, [id number], 28486821, 38180205, 6297450729, 2087262574, 4128926, 1512008, 3250751 #### [facility] (DEFAULT) [address] [place] [address] Baso Abs# 0.0 x10 Normal 0.0-0.2 [facility] Comment on above: Performed By: #### 7 146249, 57301180, 93768515, 55791401, 7416741718, 9321223671, 8370377, 1383232, 8030776 #### [facility] (DEFAULT) [address] [place] [address] Basophils/100 WBC (Bld) 0.6 % Normal 0.2-2.0 [facility] Comment on above: Performed By: #### 7 553296, 70068198, 91300414, 03305237, 7038541836, 8321646296, 3060895, 5109726, 8444519 #### [facility] (DEFAULT) [address] [place] [address] Eos Abs# 0.1 x10 Normal 0.0-0.4 [facility] Comment on above: Performed By: #### 7 297833, 41700133, 55603261, 92630731, 2182370977, 5849384663, 2539533, 3703099, 4715646 #### [facility] (DEFAULT) [address] [place] [address] Eosinophils/100 WBC (Bld) 1.0 % Normal 0.9-4.0 [facility] Comment on above: Performed By: #### 7 347832, 35062327, 64986491, 78534244, 2599175094, 0166916712, 2647944, 3239809, 3003165 #### [facility] (DEFAULT) [address] [place] [address] Lymphocytes (Bld) [#/Vol] 1.8 x10 Normal 1.3-2.9 [facility] Comment on above: Performed By: #### 7 699122, 31865886, 02894071, 61449816, 0281725357, 3024396326, 8344805, 6715147, 6284491 #### [facility] (DEFAULT) [address] [place] [address] 20205 Lymphocytes/100 WBC (Bld) 20 % Normal 14-48 [facility] Comment on above: Performed By: #### 7 714105, 66788158, 53253377, 59979357, 8538234055, 9582712980, 6592092, 1665773, 6838531 #### [facility] (DEFAULT) [address] [place] [address] Alpine Abs# 0.5 x10 Normal 0.0-0.8 [facility] Comment on above: Performed By: #### 7 588158, 51676419, 94856792, 60385105, 5109781849, 7709726205, 0065767, 2046785, 5536751 #### [facility] (DEFAULT) [address] [place] [address] 05449 Neut Abs# 6.5 x10 Normal 1.5-9.2 [facility] Comment on above: Performed By: #### 7 125706, 18570900, 06435821, 74634034, 1218228153, 3763936269, 4840144, 1688685, 7072254 #### [facility] (DEFAULT) [address] [place] [address] 51734 Neutrophils/100 WBC (Bld) 73 % Normal 44-88 [facility] Comment on above: Performed By: #### 7 588047, 46191486, 90569501, 78415888, 4490678712, 7207771751, 5922767, 4007307, 6921229 #### [facility] (DEFAULT) [address] [place] [address] ABORhon 07-29-2019 ABO and Rh group Nom (Bld) Hx Check: Not Found Anti-A: 0 Anti-B: 4+ Anti-D: 4+ DCon: NT A1: 4+ B: 0 ABORh Interp: B POS [facility] Comment on above: Performed By: #### 7 505682, 84212248, 94050512, 50218330, 6964208535, 1431838531, 4310545, 7552181, 0523559 #### [facility] (DEFAULT) [address] [place] [address] ABORh Retypeon 07-29-2019 ABO and Rh group Nom (Bld) Ordered by Discern. Anti-A: 0 Anti-B: 4+ Anti-D: 4+ DCon: NT A1: 4+ B: 0 ABORh Retype: B POS [facility] Comment on above: Performed By: #### 7 293148, 55141164, 91505198, 72945801, 5685536184, 3110801875, 8485261, 0467574, 9790920 #### [facility] (DEFAULT) [address] [place] [address] ABSC Gelon 07-29-2019 ABSC Gel Negative Normal [facility] Comment on above: Performed By: #### 7 013959, 95362531, 34275773, 21402072, 9833652133, 0210015813, 3068600, 4777004, 4250434 #### [facility] (DEFAULT) [address] [place] [address] CBC w/ Auto Diffon 9 Erythrocyte distribution width (RBC) [Ratio] 11.9 % Normal 11.5-15.0 [facility] Comment on above: Performed By: #### 7 859602, 48713863, 09914550, 90877173, 6851109759, 1606004913, 5550894, 3240348, 4574323 #### [facility] (DEFAULT) [address] [place] [address] Hematocrit (Bld) [Volume fraction] 36.6 % Normal 33.7-40.4 [facility] Comment on above: Performed By: #### 7 684569, 52597686, 76752505, 84079647, 2910728494, 9644852650, 1812960, 2965784, 0362972 #### [facility] (DEFAULT) [address] [place] [address] Hemoglobin (Bld) [Mass/Vol] 12.6 g/dL Normal 11.3-15.9 [facility] Comment on above: Performed By: #### 7 989407, 19417233, 11252702, 45045856, 5079523319, 9703097287, 4669651, 6673502, 5087074 #### [facility] (DEFAULT) [address] [place] [address] 71913 Man Diff? Auto Normal [facility] Comment on above: Performed By: #### 7 177458, 78795823, 57575451, 41169216, 5158880984, 3652436624, 4092668, 5259211, 9175049 #### [facility] (DEFAULT) [address] [place] [address] 94863 MCH (RBC) [Entitic mass] 31 pg Normal 24-34 [facility] Comment on above: Performed By: #### 7 552938, 51137963, 98491499, 87432609, 4199459244, 9343431200, 3943672, 3823116, 3939094 #### [facility] (DEFAULT) [address] [place] [address] 36530 MCHC (RBC) [Mass/Vol] 34 g/dL Normal 26-37 [facility] Comment on above: Performed By: #### 7 346710, 76963929, 98362549, 32591425, 1230314187, 7585492624, 2066692, 6337904, 8474849 #### [facility] (DEFAULT) [address] [place] [address] 87255 MCV (RBC) [Entitic vol] 91 fL Normal 81-100 [facility] Comment on above: Performed By: #### 7 338859, 92766590, 71657450, 94986603, 2431693462, 2568963153, 8263031, 2117980, 2298826 #### [facility] (DEFAULT) [address] [place] [address] 29570 Platelet mean volume (Bld) [Entitic vol] 9.6 fL Normal 6.3-10.2 [facility] Comment on above: Performed By: #### 7 999221, 08921089, 31007228, 70128039, 2423798786, 6864237646, 3783864, 5807063, 0408671 #### [facility] (DEFAULT) [address] [place] [address] 60934 Platelets (Bld) [#/Vol] 379 x10 Normal 138-427 [facility] Comment on above: Performed By: #### 7 608449, 25590720, 10264273, 55801299, 5915180660, 3040207185, 1847665, 4170769, 2769735 #### [facility] (DEFAULT) [address] [place] [address] 42846 RBC (Bld) [#/Vol] 4.02 x10 Normal 3.70-5.30 [facility] Comment on above: Performed By: #### 7 869247, 97342459, 16903769, 91321553, 9406986006, 5921254867, 2349992, 5716859, 1545620 #### [facility] (DEFAULT) [address] [place] [address] 74851 WBC (Bld) [#/Vol] 8.9 x10 [facility] Comment on above: Performed By: #### 7 364669, 23144822, 06980948, 16018342, 2525737059, 7905397229, 6111734, 4175561, 1610462 #### [facility] (DEFAULT) [address] [place] [address] 03567 CMP Standardon 07-29-2019 eGFR Non AA >60 [facility] Comment on above: Performed By: #### 7 751445, 28560369, 51455545, 52855462, 5704250239, 7203819089, 8389225, 8093242, 6950817 #### [facility] (DEFAULT) [address] [place] [address] 39418 eGFR AA >60 [facility] Comment on above: Result Comment: 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 Kidney Failure is indicated at less than 15 ml/min/1.73m2 Performed By: #### 7 024221, 26228525, 86996271, 38651539, 0427219114, 2904346252, 2268241, 6378327, 7785779 #### [facility] (DEFAULT) [address] [place] [address] 59381 Albumin [Mass/Vol] 4.8 g/dL Normal 3.5-5.0 [facility] Comment on above: Performed By: #### 7 058783, 94820294, 01523091, 89264110, 8580082840, 8249844993, 2506415, 1986763, 3224656 #### [facility] (DEFAULT) [address] [place] [address] 74073 Albumin/Globulin [Mass ratio] 2.0 {ratio} Normal 1.4-2.6 [facility] Comment on above: Performed By: #### 7 665767, 79142968, 53298700, 24061630, 7822733689, 3802765914, 0790672, 8376211, 6982865 #### [facility] (DEFAULT) [address] [place] [address] 20765 Alk Phos 50 IU/L Normal 32-91 [facility] Comment on above: Performed By: #### 7 [id number], [id number], [id number], 10857612, [id number], [id number], 0197591, 6211657, [id number] #### [facility] (DEFAULT) [address] [place] [address] 89444 ALT/SGPT 13.0 IU/L Low 14.0-54.0 [facility] Comment on above: Performed By: #### 7 115502, [id number], 89318903, 40076547, [id number], [id number], 0680457, 2066916, 9135333 #### [facility] (DEFAULT) [address] [place] [address] 15591 Anion gap [Moles/Vol] 15.0 mmol/L Normal 5.0-19.0 [facility] Comment on above: Performed By: #### 7 611266, [id number], 57104883, 00491768, [id number], [id number], 8914729, 8309747, 2010832 #### [facility] (DEFAULT) [address] [place] [address] 21338 AST/SGOT 15 IU/L Normal 15-41 [facility] Comment on above: Performed By: #### 7 509871, 43048579, 51304557, 03860342, [id number], [id number], 9688850, 9318295, 4402076 #### [facility] (DEFAULT) [address] [place] [address] 12485 Bili Total 0.6 mg/dL Normal 0.3-1.2 [facility] Comment on above: Performed By: #### 7 831681, 87241209, 46166522, 79042587, [id number], [id number], 0413225, 8308515, 8013427 #### [facility] (DEFAULT) [address] [place] [address] 58521 Calcium [Mass/Vol] 9.4 mg/dL Normal 8.9-10.3 [facility] Comment on above: Performed By: #### 7 719091, 84204909, 12950582, 74957682, 0487509417, 5435219238, 2729621, 0908617, 1616925 #### [facility] (DEFAULT) [address] [place] [address] 45802 Chloride [Moles/Vol] 107 mmol/L Normal 101-111 [facility] Comment on above: Performed By: #### 7 606281, 19921022, 60291364, 08935088, 0837441075, [id number], 2098108, 8319976, 1568386 #### [facility] (DEFAULT) [address] [place] [address] 07712 CO2 [Moles/Vol] 22 mmol/L Normal 21-32 [facility] Comment on above: Performed By: #### 7 985137, 54483440, 13751519, 09721918, 1854558038, 3865144623, 2470009, 1147309, 3463851 #### [facility] (DEFAULT) [address] [place] [address] 34209 Creatinine [Mass/Vol] 0.58 mg/dL Low 0.60-1.30 [facility] Comment on above: Performed By: #### 7 310147, 69541298, 65675145, 32898027, 9138951866, 3328387851, 4724541, 0715933, 3898872 #### [facility] (DEFAULT) [address] [place] [address] 10494 Globulin (S) [Mass/Vol] 2.4 g/dL Normal 1.5-4.3 [facility] Comment on above: Performed By: #### 7 598319, 83249759, 52602074, 55129304, 1643330556, 8316378058, 6574007, 6736627, 1584594 #### [facility] (DEFAULT) [address] [place] [address] 67868 Glucose [Mass/Vol] 93.0 mg/dL Normal 74.0-118.0 [facility] Comment on above: Performed By: #### 7 112013, 09328201, 58251934, 91586378, 9847696026, 5442112781, 4373510, 7731351, 3879986 #### [facility] (DEFAULT) [address] [place] [address] 15618 Osmolality [Osmolality] 277 mOsm/L [facility] Comment on above: Performed By: #### 7 924963, 93778113, 96059003, 40497059, 6848648759, 8146921652, 8878111, 7972752, 5643842 #### [facility] (DEFAULT) [address] [place] [address] 99720 Potassium [Moles/Vol] 3.5 mmol/L Low 3.6-5.1 [facility] Comment on above: Performed By: #### 7 916440, 72304435, 73200933, 18899560, 7419377332, 8242080900, 5289872, 3965282, 7847790 #### [facility] (DEFAULT) [address] [place] [address] 88276 Protein [Mass/Vol] 7.2 g/dL Normal 6.5-8.1 [facility] Comment on above: Performed By: #### 7 073264, 71670420, 43427025, 40554353, 9284011642, 0084950868, 6637251, 3443920, 8246674 #### [facility] (DEFAULT) [address] [place] [address] 27753 Sodium [Moles/Vol] 140.0 mmol/L Normal 136.0-144.0 [facility] Comment on above: Performed By: #### 7 850886, 34285890, 10782590, 66022536, 8015934981, 1969910372, 5610655, 9001319, 3967710 #### [facility] (DEFAULT) [address] [place] [address] 57865 Urea nitrogen [Mass/Vol] 7 mg/dL Low 8-26 [facility] Comment on above: Performed By: #### 7 561697, 92394584, 89059625, 19952541, 3004488715, 7476688023, 8835347, 1043511, 5562005 #### [facility] (DEFAULT) [address] [place] [address] 25355 Urea nitrogen/Creatinine [Mass ratio] 12.0 mg/mg Normal 4.6-16.2 [facility] Comment on above: Performed By: #### 7 880027, 68899236, 17377758, 79335381, 3223949586, 2630091054, 3162932, 5258170, 1041298 #### [facility] (DEFAULT) [address] [place] [address] ED Clinical Summaryon 2018 ED Clinical Summary [facility] - Emergency Department [address] [place] [address] 275[address] ED Clinical Summary PERSON INFORMATION Name: HARRIET TOMPKINS Age: 23 Years Sex: FEMALE : 1995 MRN: Acct#: Visit Reason: Vaginal bleeding - < 20 wks ; VAGINAL BLEEDING Arrival: 07/29/2019 07:42:00 Discharge: 07/29/2019 11:20:00 LOS: 000 03:38 Check In: 07/29/2019 07:42:00 Checkout:07/29/2019 11:20:00 Address: [address] [place] [address] PCP: Provider, None PROVIDER INFORMATION Provider Role Assigned Unassigned Lisbet Oden RN ED Nurse 07/29/2019 08:03:39 Chandler Gallo ED Provider 07/29/2019 08:03:44 VITALS INFORMATION Vital Sign Triage Latest Temperature Tympanic Temperature Temporal Artery Pulse Rate 87 bpm 87 bpm O2 Sat 100 % 100 % Respiratory Rate 17 br/min 17 br/min Blood Pressure /62 mmHg /62 mmHg MEDICAL INFORMATION Medications Given: Allergy Information: No known allergies PHYSICIAN DOCUMENTATION DISCHARGE INFORMATION: Discharge Disposition: Home Discharge Location: Home PATIENT EDUCATION INFORMATION Instructions: Subchorionic Hematoma Follow-Up: With: Address: When: Jneny Leary [address] [place] [address] [facility] (5) Within 3 to 5 days With: Address: When: None Provider Within 3 to 5 days DIAGNOSIS: Subchorionic hemorrhage in first trimester Patient Understands: Yes - Patient/family/caregiv er verbalizes understanding of instructions given Comment: Normal [facility] ED Note - Physicianon 2018 ED Note - Physician Patient: HARRIET TOMPKINS Age: 23 years Sex: FEMALE : 1995 Associated Diagnoses: Subchorionic hemorrhage in first trimester Author: Chandler Gallo Basic Information Additional information: Chief Complaint from Nursing Triage Note : Chief Complaint 07/29/2019 7:42 EDT Chief Complaint pt believes she is having a miscarriage. . History of Present Illness atient presents with vaginal bleeding. Patient states that her last menstrual period was about 7 weeks ago. He started noticing the lower abdominal cramping and vaginal bleeding yesterday. Pain is moderate in intensity. She notes a previous without terminated in her third trimester. She denies any nausea or vomiting. Denies any fever or chills. Denies any pain with urination. Review of Systems Constitutional symptoms: No fever, no chills. Respiratory symptoms: No shortness of breath, no cough. Cardiovascular symptoms: No chest pain, no palpitations. Gastrointestinal symptoms: Abdominal pain, moderate, cramping, no nausea, no vomiting. Genitourinary symptoms: No dysuria, no hematuria. Hematologic/Lymphatic symptoms: Bleeding tendency negative, bruising tendency negative. Allergy/immunologic symptoms: No recurrent infections, no impaired immunity. Health Status Allergies: Allergic Reactions (Selected) No known allergies. Past Medical/ Family/ Social History Medical history: No active or resolved past medical history items have been selected or recorded.. Surgical history: No active procedure history items have been selected or recorded.. Family history: No family history items have been selected or recorded.. Social history: Social & Psychosocial Habits Alcohol 07/29/2019 Alcohol Use: Past Substance Abuse 07/29/2019 Substance use: Never Tobacco 07/29/2019 Smoking tobacco use: 10 or more cigarettes (1/ Number used per day: 10/29 ppd Electronic Cigarette/Vaping 07/29/2019 Electronic Cigarette Use: Never . Problem list: No qualifying data available . Physical Examination Vital Signs Vital Signs 07/29/2019 7:42 EDT Temperature Oral 36.7 DegC Peripheral Pulse Rate 87 bpm Respiratory Rate 17 br/min Systolic Blood Pressure 100 mmHg Diastolic Blood Pressure 62 mmHg SpO2 100 % Oxygen Therapy Room air . Measurements 07/29/2019 7:53 EDT Weight Dosing 38.100 kg 07/29/2019 7:53 EDT Height/Length Dosing 147.320 cm 07/29/2019 7:42 EDT Height/Length Estimated 147.320 cm Weight Estimated 38.100 kg . General: Alert, mild distress. Skin: Warm, dry, pink. Cardiovascular: Regular rate and rhythm, No murmur, Normal peripheral perfusion. Respiratory: Lungs are clear to auscultation, respirations are non-labored, breath sounds are equal. Gastrointestinal: lower abdominal cramping. mild grimace on palpation. no rebound. . Back: Nontender, Normal range of motion. Neurological: Alert and oriented to person, place, time, and situation, No focal neurological deficit observed, CN II-XII intact, normal sensory observed. Psychiatric: Cooperative, appropriate mood & affect, tearful . Medical Decision Making Differential Diagnosis: Abdominal pain, urinary tract infection, threatened ,. Orders Launch Orders Miscellaneous Request: Excuse from Work/School (Order): 07/29/2019 11:15 EDT, patient may return to work on 07/31/19.. Reexamination/ Reevaluation on arrival patient describes vaginal bleeding over the last couple days in duration. She is unable to quantify it. An ultrasound of the abdomen and transvaginal ultrasound performed secondary to her of approximately 6-7 weeks. Ultrasound is suggesting a viable fetus however there is a large subchorionic bleed. Patient's blood pressures on the low side but this is normal for her. Her hemodynamics otherwise stable. Her hemoglobin and hematocrit are in the normal range. There is no platelet deficit. I did reach out to her OB group and did speak with a nurse practitioner Gibran. A narrative ultrasound report was faxed to their office. Patient is to follow-up with their office in the next 24 hours. I will limit her activities away from work for 2 days. If her bleeding should worsen or she becomes dizzy, or feels unsteady on her feet and return to the ED would be recommended. Impression and Plan Diagnosis Subchorionic hemorrhage in first trimester ([id number] O41.8X10, Discharge, Medical) Plan Condition: Stable. Disposition: Discharged: time 07/29/2019 11:08:00. Patient was given the following educational materials: Subchorionic Hematoma, Subchorionic Hematoma. Follow up with: None Provider Within 3 to 5 days; Jenny Leary Within 3 to 5 days. Counseled: Patient, Family, Regarding diagnosis, Regarding diagnostic results, Regarding treatment plan, Regarding prescription, Patient indicated understanding of instructions. [Electronically Signed on: 07/29/2019 11:30 EDT] Chandler Gallo MD [Verified on: 07/29/2019 11:30 EDT] Chandler Gallo MD [facility] ED Note-Nursingon 07-29-2019 ED Note-Nursing Pt arrives to ED wit h vaginal bleeding for about 1 hour. Pt states she is about 7 weeks and she is pooling blood. Pt states she went to the OB about 3 weeks ago and had a confirmed . Pt states she is having mild cramping. [facility] ED Patient Education Noteon 07-29-2019 ED Patient Education Note Education Materials Obstetrics and Gynecology Subchorionic Hematoma A subchorionic hematoma is a gathering of blood between the outer wall of the embryo (chorion) and the inner wall of the womb (uterus). This condition can cause vaginal bleeding. If they cause little or no vaginal bleeding, early small hematomas usually shrink on their own and do not affect your baby or . When bleeding starts later in , or if the hematoma is larger or occurs in older women, the condition may be more serious. Larger hematomas may get bigger, which increases the chances of miscarriage. This condition also increases the risk of: ? Premature separation of the placenta from the uterus. ? Premature () labor. ? Stillbirth. What are the causes? The exact cause of this condition is not known. It occurs when blood is trapped between the placenta and the uterine wall because the placenta has from the original site of implantation. What increases the risk? You are more likely to develop this condition if: ? You were treated with fertility medicines. ? You conceived through in vitro fertilization (IVF). What are the signs or symptoms? Symptoms of this condition include: ? Vaginal spotting or bleeding. ? Contractions of the uterus. These cause abdominal pain. Sometimes you may have no symptoms and the bleeding may only be seen when ultrasound images are taken (transvaginal ultrasound). How is this diagnosed? This condition is diagnosed based on a physical exam. This includes a pelvic exam. You may also have other tests, including: ? Blood tests. ? Urine tests. ? Ultrasound of the abdomen. How is this treated? Treatment for this condition can vary. Treatment may include: ? Watchful waiting. You will be monitored closely for any changes in bleeding. During this stage: ? The hematoma may be reabsorbed by the body. ? The hematoma may separate the fluid-filled space containing the embryo (gestational sac) from the wall of the womb (endometrium). ? Medicines. ? Activity restriction. This may be needed until the bleeding stops. Follow these instructions at home: ? Stay on bed rest if told to do so by your health care provider. ? Do not lift anything that is heavier than 10 lbs. (4.5 kg) or as told by your health care provider. ? Do not use any products that contain nicotine or tobacco, such as cigarettes and e-cigarettes. If you need help quitting, ask your health care provider. ? Track and write down the number of pads you use each day and how soaked (saturated) they are. ? Do not use tampons. ? Keep all follow-up visits as told by your health care provider. This is important. Your health care provider may ask you to have follow-up blood tests or ultrasound tests or both. Contact a health care provider if: ? You have any vaginal bleeding. ? You have a fever. Get help right away if: ? You have severe cramps in your stomach, back, abdomen, or pelvis. ? You pass large clots or tissue. Save any tissue for your health care provider to look at. ? You have more vaginal bleeding, and you faint or become lightheaded or weak. Summary ? A subchorionic hematoma is a gathering of blood between the outer wall of the placenta and the uterus. ? This condition can cause vaginal bleeding. ? Sometimes you may have no symptoms and the bleeding may only be seen when ultrasound images are taken. ? Treatment may include watchful waiting, medicines, or activity restriction. This information is not intended to replace advice given to you by your health care provider. Make sure you discuss any questions you have with your health care provider. Document Released: 01/29/2008 Document Revised: 12/10/2017 Document Reviewed: 12/10/2017 [employer] Interactive Patient Education ? 2019 [employer] Normal [facility] ED Patient Summaryon 019 ED Patient Summary [facility] - Emergency Department [address] [place], [place] [id number] PATIENT DISCHARGE INSTRUCTIONS Patient Information Name: HARRITE TOMPKINS Age: 23 Years Date of : 1995 [facility]: [id number] Reason For Visit: Vaginal bleeding - < 20 wks ; VAGINAL BLEEDING Arrival Time: 07/29/2019 07:42:00 Primary Care Physician: Provider, None Attending Physician: Chandler Gallo Comment: Visit Diagnosis: Diagnoses This Visit Subchorionic hemorrhage in first trimester (O41.8X10) Vaginal bleeding - < 20 wks ([id number]) Prescription Information: If you have been given a prescription for narcotics, seek immediate medical attention if you have any difficulty breathing or any sudden status changes such as confusion and sleepiness. If you or anyone you know is experiencing suicidal thoughts, mental health, alcohol and/or drug addiction problems; contact the [facility] 20/05 Crisis Hotline -Text 4HKQO qu 519014. If you received any narcotics, sedation, or any other medication that causes drowsiness for the next 24 hours, unless otherwise directed: ? Do not drive a car. ? Do not operate machinery such as power tools, lawn mowers, drills, sewing machines, or stoves ? Avoid alcoholic beverages and drugs for allergies, nerves, or sleep ? Do not make important personal or business decisions or sign any legal documents With: Address: When: Jenny Leary [address] [place], [place] [id number] [facility] (1) Within 3 to 5 days With: Address: When: None Provider Within 3 to 5 days Medication Information: The exam and treatment you received today in the [facility] Emergency Department were for an urgent problem and are not intended as complete care. It is important for you to follow up with a doctor, nurse practitioner, or physician?s assistant loan processor for ongoing care. If your symptoms become worse or you do not improve as expected and you are unable to reach your usual health care provider, you should return to the Emergency Department, we are available 24 hours a day. For those patients who have received Radiology results, the interpretation of your X-ray as given to you by our Emergency Department physician is only a preliminary report. The Radiologist will review your films and if there is a change in the diagnosis you will be notified by phone. Please make sure you have provided a working phone number so we can reach you if necessary. In the event that you had a lab culture while you were a patient in the Emergency Department, you will be notified by phone if there is a need to change your antibiotic. Please make sure you have provided a working phone number so we can reach you if necessary. [facility] Emergency Department has provided you with a complete list of medications post discharge. Please inform your paper cap machine operator/provider of your visit and for further instruction on these medications. Any specific questions regarding your chronic medications and dosages should be discussed with your primary care physician(s) and/or pharmacist. Visit Information Allergies: Substance Reaction Symptoms Type Comments No known allergies Drug Vital Signs: Vitals and Measurements this Visit (last charted value for your 07/29/2019 visit) Vital Signs This Visit Temperature Oral: 36.7 DegC Peripheral Pulse Rate: 87 bpm Respiratory Rate: 17 br/min Systolic Blood Pressure: 100 mmHg Diastolic Blood Pressure: 62 mmHg SpO2: 100 % Oxygen Therapy: Room air Measurements This Visit Height/Length Dosin.320 cm Height/Length Estimated: 147.320 cm Weight Dosin.100 kg Weight Estimated: 38.100 kg Problems List: Problem Onset Comments No Problems found Patient Education Subchorionic Hematoma A subchorionic hematoma is a gathering of blood between the outer wall of the embryo (chorion) and the inner wall of the womb (uterus). This condition can cause vaginal bleeding. If they cause little or no vaginal bleeding, early small hematomas usually shrink on their own and do not affect your baby or . When bleeding starts later in , or if the hematoma is larger or occurs in older women, the condition may be more serious. Larger hematomas may get bigger, which increases the chances of miscarriage. This condition also increases the risk of: ? Premature separation of the placenta from the uterus. ? Premature () labor. ? Stillbirth. What are the causes? The exact cause of this condition is not known. It occurs when blood is trapped between the placenta and the uterine wall because the placenta has from the original site of implantation. What increases the risk? You are more likely to develop this condition if: ? You were treated with fertility medicines. ? You conceived through in vitro fertilization (IVF). What are the signs or symptoms? Symptoms of this condition include: ? Vaginal spotting or bleeding. ? Contractions of the uterus. These cause abdominal pain. Sometimes you may have no symptoms and the bleeding may only be seen when ultrasound images are taken (transvaginal ultrasound). How is this diagnosed? This condition is diagnosed based on a physical exam. This includes a pelvic exam. You may also have other tests, including: ? Blood tests. ? Urine tests. ? Ultrasound of the abdomen. How is this treated? Treatment for this condition can vary. Treatment may include: ? Watchful waiting. You will be monitored closely for any changes in bleeding. During this stage: ? The hematoma may be reabsorbed by the body. ? The hematoma may separate the fluid-filled space containing the embryo (gestational sac) from the wall of the womb (endometrium). ? Medicines. ? Activity restriction. This may be needed until the bleeding stops. Follow these instructions at home: ? Stay on bed rest if told to do so by your health care provider. ? Do not lift anything that is heavier than 10 lbs. (4.5 kg) or as told by your health care provider. ? Do not use any products that contain nicotine or tobacco, such as cigarettes and e-cigarettes. If you need help quitting, ask your health care provider. ? Track and write down the number of pads you use each day and how soaked (saturated) they are. ? Do not use tampons. ? Keep all follow-up visits as told by your health care provider. This is important. Your health care provider may ask you to have follow-up blood tests or ultrasound tests or both. Contact a health care provider if: ? You have any vaginal bleeding. ? You have a fever. Get help right away if: ? You have severe cramps in your stomach, back, abdomen, or pelvis. ? You pass large clots or tissue. Save any tissue for your health care provider to look at. ? You have more vaginal bleeding, and you faint or become lightheaded or weak. Summary ? A subchorionic hematoma is a gathering of blood between the outer wall of the placenta and the uterus. ? This condition can cause vaginal bleeding. ? Sometimes you may have no symptoms and the bleeding may only be seen when ultrasound images are taken. ? Treatment may include watchful waiting, medicines, or activity restriction. This information is not intended to replace advice given to you by your health care provider. Make sure you discuss any questions you have with your health care provider. Document Released: 01/29/2008 Document Revised: 12/10/2017 Document Reviewed: 12/10/2017 [employer] Interactive Patient Education ? 2019 [employer] Viruses or Bacteria What?s got you sick? Antibiotics only treat bacterial infections. Viral illnesses cannot be treated with antibiotics. When an antibiotic is not prescribed, ask your healthcare professional for tips on how to relieve symptoms and feel better. Usual Cause Illness Viruses Bacteria Antibiotic Needed Cold/Runny Nose NO Bronchitis/Chest Cold (in otherwise healthy children and adults) NO Whooping Cough Yes Flu NO Strep Throat Yes Sore Throat (except strep) NO Fluid in the middle ear (otitis media with effusion) NO Urinary Tract Infection Yes Antibiotics Aren?t Always the Answer www.cdc.gov/getsmart GET SMART Know When Antibiotics Work [place].S. Department of Health and Human Services Centers for Disease Control and Prevention June 2014 Normal [facility] PT/PTTon 07-29-2019 aPTT Coag (Bld) [Time] 31 second(s) Normal 25-35 [facility] Comment on above: Performed By: #### 7 [id number], [id number], [id number], 84809125, [id number], [id number], 5257926, 6141962, 5606469 #### [facility] (DEFAULT) [address] [place] [address] 77484 INR Coag (PPP) [Relative time] 1.07 {INR} Normal 0.91-1.11 [facility] Comment on above: Performed By: #### 7 [id number], [id number], [id number], [id number], [id number], [id number], 1489973, 2385097, 6338567 #### [facility] (DEFAULT) [address] [place] [address]75 PT Coag (PPP) [Time] 11.0 second(s) Normal 9.7-11.8 [facility] Comment on above: Performed By: #### 7 [id number], [id number], [id number], [id number], [id number], [id number], [id number], [id number], [id number] #### [facility] (DEFAULT) [address] [place] [address] 84222 RhIG.on 07-29-2019 RhIG. No. Vials RhI RhIG Candidate?: No Date to Give: [id number] RhIG Status: NA [facility] Comment on above: Performed By: #### 7 [id number], [id number], [id number], [id number], [id number], [id number], [id number], [id number], [id number] #### [facility] (DEFAULT) [address] [place] [address] 99444 UA Hrelx6fc 07-29-2019 RBC (U) [#/Vol] Few [facility] Comment on above: Order Comment: Urina lysis Microscopic order added on by [employer] Expert Rules system. Performed By: #### 1 [id number], [id number] ####[facility] (DEFAULT)[address] [place] [address] UA Bacteria None Normal [facility] Comment on above: Order Comment: Urina lysis Microscopic order added on by [employer] Expert Rules system. Performed By: #### 1 [id number], [id number] ####[facility] (DEFAULT)[address] [place] [address] UA Renal Epi Rare Normal [facility] Comment on above: Order Comment: Urina lysis Microscopic order added on by [employer] Expert Rules system. Performed By: #### 1 [id number], [id number] ####[facility] (DEFAULT)[address] [place] [address] UA Squam Epi Rare Normal [facility] Comment on above: Order Comment: Urina lysis Microscopic order added on by [employer] Expert Rules system. Performed By: #### 1 [id number], [id number] ####[facility] (DEFAULT)[address] [place] [address] 39187 UA Urothelial Cells Rare Abnormal None Seen [facility] Comment on above: Order Comment: Urina lysis Microscopic order added on by [employer] Expert Rules system. Performed By: #### 1 [id number], [id number] ####[facility] (DEFAULT)[address] [place] [address] 31903 UA WBC None Seen Normal [facility] Comment on above: Order Comment: Urina lysis Microscopic order added on by [employer] Rules system. Performed By: #### 1 [id number], [id number] ####[facility] (DEFAULT)[address] [place] [address] 77446 UA w Culture if Ind Standard on 07-29-2019 Breakpoint UA Normal [facility] Comment on above: Performed By: #### 1 [id number], [id number] ####[facility] (DEFAULT)[address] [place] [address] Color (U) STRAW [facility] Comment on above: Performed By: #### 1 [id number], [id number] ####[facility] (DEFAULT)[address] [place] [address] 39583 Culture? No Normal [facility] Comment on above: Performed By: #### 1 [id number], [id number] ####[facility] (DEFAULT)[address] [place] [address] 47101 Glucose (U) [Mass/Vol] Negative [facility] Comment on above: Performed By: #### 1 [id number], [id number] ####[facility] (DEFAULT)[address] [place] [address] 76060 Ketones Ql (U) TRACE [facility] Comment on above: Performed By: #### 1 [id number], [id number] ####[facility] (DEFAULT)[address] [place] [address] 58634 Micro? Indicated [facility] Comment on above: Performed By: #### 1 [id number], [id number] ####[facility] (DEFAULT)[address] [place] [address] 06692 UA Bilirubin Negative Normal [facility] Comment on above: Performed By: #### 1 [id number], [id number] ####[facility] (DEFAULT)[address] [place] [address] 51425 UA Blood MODERATE Abnormal NEGATIVE [facility] Comment on above: Performed By: #### 1 [id number], [id number] ####[facility] (DEFAULT)[address] [place] [address] 63919 UA Clarity CLEAR Normal CLEAR [facility] Comment on above: Performed By: #### 1 [id number], [id number] ####[facility] (DEFAULT)[address] [place] [address] 65849 UA Leuk Est Negative Normal NEGATIVE [facility] Comment on above: Performed By: #### 1 [id number], [id number] ####[facility] (DEFAULT)[address] [place] [address] 62984 UA Nitrite Negative Normal NEGATIVE [facility] Comment on above: Performed By: #### 1 [id number], [id number] ####[facility] (DEFAULT)[address] [place] [address] 48270 UA pH 7.0 5-8 [facility] Comment on above: Performed By: #### 1 [id number], [id number] ####[facility] (DEFAULT)[address] [place] [address] 41082 UA Protein Negative Normal NEGATIVE [facility] Comment on above: Performed By: #### 1 [id number], [id number] ####[facility] (DEFAULT)[address] [place] [address] 37186 UA Spec Grav <=1.005 1.001-1.035 [facility] Comment on above: Performed By: #### 1 [id number], [id number] ####[facility] (DEFAULT)[address] [place] [address] 24197 UA Urobilinogen 0.2 mg/dL Normal 0.2-1.0 [facility] Comment on above: Performed By: #### 1 [id number], [id number] ####[facility] (DEFAULT)[address] [place] [address] 37733 Urine Source Clean Catch Normal [facility] Comment on above: Performed By: #### 1 [id number], [id number] ####[facility] (DEFAULT)[address] [place] [address] 15101 US 1st Trimesteron 07-29-2019 US 1st Trimester EXAM: US 1st Trimester, US Transvaginal HISTORY: vaginal bleeding, evaluation. COMPARISON: None. TECHNIQUE: ultrasound study was performed with transabdominal and transvaginal imaging. FINDINGS: Maternal uterus measures approximately 9.9 x 6.0 x 5.2 cm in longitudinal, transverse, and AP dimensions. Within the endometrial canal there is finding compatible with gestational sac which contains yolk sac and pole. pole is estimated at 6 weeks 5 days age according to crown-rump length and 6 weeks 1 day age according to gestational sac size. cardiac motion is noted, the heart rate measures between 97 and 128 bpm. Within the endometrial canal is a prominent area of low level increased echogenicity likely representing blood, it extends from the level of the gestational sac to the cervix, it measures approximately 8.1 x 3.9 x 2.5 cm in longitudinal, AP, and transverse dimensions. Consider large subchorionic bleed. Maternal right ovary measures 1.9 x 1.4 x 1.3 cm, maternal left ovary measures 3.5 x 2.6 x 2.0 cm. Likely 2.3 x 1.6 x 1.2 cm left adnexal cyst. There is blood flow to the ovaries. Small amount of free intraperitoneal fluid. There is vascular prominence noted in the maternal pelvis on the left, nonspecific, correlate for possible pelvic congestion syndrome. IMPRESSION: Findings compatible with single live intrauterine gestation approximately 6 weeks 5 days age according to crown-rump length and 6 weeks 1 day age according to gestational sac size as described. Findings compatible with large likely subchorionic bleed within the endometrial canal extending to the cervix. Small amount of free intraperitoneal fluid. Left side vascular prominence, nonspecific, correlate for possible pelvic congestion syndrome. Final Dictated by: Abdirashid Lawrence MD Dictated DT/TM: 07/29/19 10:40 Signed (Electronic Signature): Abdirashid Lawrence MD 07/29/19 11:05 a Technologist: GEORGE ROBLEDO [facility] US Transvaginalon 07-29-2019 US Transvaginal EXAM: US 1st Trimester, US Transvaginal HISTORY: vaginal bleeding, evaluation. COMPARISON: None. TECHNIQUE: ultrasound study was performed with transabdominal and transvaginal imaging. FINDINGS: Maternal uterus measures approximately 9.9 x 6.0 x 5.2 cm in longitudinal, transverse, and AP dimensions. Within the endometrial canal there is finding compatible with gestational sac which contains yolk sac and pole. pole is estimated at 6 weeks 5 days age according to crown-rump length and 6 weeks 1 day age according to gestational sac size. cardiac motion is noted, the heart rate measures between 97 and 128 bpm. Within the endometrial canal is a prominent area of low level increased echogenicity likely representing blood, it extends from the level of the gestational sac to the cervix, it measures approximately 8.1 x 3.9 x 2.5 cm in longitudinal, AP, and transverse dimensions. Consider large subchorionic bleed. Maternal right ovary measures 1.9 x 1.4 x 1.3 cm, maternal left ovary measures 3.5 x 2.6 x 2.0 cm. Likely 2.3 x 1.6 x 1.2 cm left adnexal cyst. There is blood flow to the ovaries. Small amount of free intraperitoneal fluid. There is vascular prominence noted in the maternal pelvis on the left, nonspecific, correlate for possible pelvic congestion syndrome. IMPRESSION: Findings compatible with single live intrauterine gestation approximately 6 weeks 5 days age according to crown-rump length and 6 weeks 1 day age according to gestational sac size as described. Findings compatible with large likely subchorionic bleed within the endometrial canal extending to the cervix. Small amount of free intraperitoneal fluid. Left side vascular prominence, nonspecific, correlate for possible pelvic congestion syndrome. Final Dictated by: Abdirashid Lawrence MD Dictated DT/TM: 07/29/19 10:40 Signed (Electronic Signature): Abdirashid Lawrence MD 07/29/19 11:05 a Technologist: GEORGE ROBLEDO Normal [facility] hCG Quantitativeon 9 hCG Quantitative 10113.0 mIU/mL High 0.0-0.6 [facility] Comment on above: Result Comment: Resu lt confirmed by dilution Post-Menopausal Reference Range is: 0.1-11.6 mIU/mL Performed By: #### 7 [id number], [id number], [id number], [id number], [id number], [id number], [id number], [id number], [id number] ####[facility] (DEFAULT)[address] [place] [address] Encounters Encounter Date Encounter Type Care Provider Facility Start: 11-04-2023 End: 11-04-2023 ambulatory CIELO GIBBONS Not Available Start: 05-13-2021 End: 05-14-[address] CIELO GIBBONS Facility:[facility] Start: 05-03-2021 End: 05-03-[address] CIELO GIBBONS Facility:[facility] Payers Date Payer Category Payer Unknown [id number] 1995 Unknown [id number] 2.16.84 [id number] 1997 Unknown [id number] 2.16.84 [id number] 1997 Unknown [id number] 2.16.84 [id number] 1959 Unknown [id number] Summary Purpose Family History No Family History Records FoundNo Family History Records FoundNo Family History Records Found Advance Directives No Advanced Directives Records FoundNo Advanced Directives Records FoundNo Advanced Directives Records Found Additional Source Comments INFORMATION SOURCE (unrecogn ized section and content) DATE CREATED AUTHOR 06/26/2020 [facility] DATE CREATED AUTHOR AUTHOR'S ORGANIZ ATION 02/28/2022 [facility] DATE CREATED AUTHOR AUTHOR'S ORGANIZ ATION 11/05/2023 [facility] FOR RECORDS PERTAINING TO PATIENTS WHO ARE OR HAVE BEEN ENROLLED IN A CHEMICAL DEPENDENCY/SUBSTANCEABUSE PROGRAM, SOME INFORMATION MAY BE OMITTED. This clinical summary was aggregated from multiple sources. Caution should be exercised in using it in the provision of clinical care. This summary normalizes information from multiple sources, and as a consequence, information in this document may materially change the coding, format and clinical context of patient data. In addition, data may be omitted in some cases. CLINICAL DECISIONS SHOULD BE BASED ON THE PRIMARY CLINICAL RECORDS. [employer] [facility]. provides no warranty or guarantee of the accuracy or completeness of information in this document.
[2023-11-09 09:23] LABS: Basophils Absolute Auto 0.1 10^3/uL (0.0-0.1); Basophils Percent Auto 0.5 % (0.2-2.0); Eosinophils Absolute Auto 0.3 10^3/uL (0.0-0.7); Eosinophils Percent Auto 2.8 % (0.9-7.0); Hematocrit 35.1 % (36.0-48.0); Hemoglobin 11.9 g/dL (12.0-16.0); Immature Granulocytes Abs Auto 0.06 10^3/uL (0.00-0.03); Immature Granulocytes Pct Auto 0.6 % (0.0-0.5); Lymphocytes Absolute Auto 1.7 10^3/uL (1.2-3.8); Lymphocytes Percent Auto 16.8 % (20.5-60.0); Mean Corpuscular HGB Conc 33.9 g/dL (29.9-35.2); Mean Corpuscular Hemoglobin 31.5 pg (26.7-34.0); Mean Corpuscular Volume 92.9 fL (81.0-99.0); Mean Platelet Volume 10.1 fL (9.5-13.5); Monocytes Absolute Auto 0.5 10^3/uL (0.3-0.8); Monocytes Percent Auto 4.7 % (1.7-12.0); Neutrophils Absolute Auto 7.7 10^3/uL (1.4-6.5); Neutrophils Percent Auto 74.6 % (43.0-75.0); Platelet Count 325 10^3/uL (150-450); Red Blood Count 3.78 10^6/uL (4.20-5.40); Red Cell Distribution Width 12.1 % (11.0-15.0); White Blood Count 10.4 10^3/uL (4.0-11.0)
[2023-11-09 10:31] LABS: Glucose 1 Hour 129 mg/dL
== END 2023-11-09 07:43 | disposition home or self-care (01) ==
LOC: US 07:44
PROVIDERS: Visit Provider Obstetrics & Gynecology
DX: Z36.89 Encounter for other specified antenatal screening (principal)
CPT/HCPCS: 36415; 76805; 76817; 82950; 85025

== ENCOUNTER 2024-01-29 08:20 | Outpatient (OUT) | payer BC, OTHER, SELFPAY ==
--- OUTSIDE RECORDS SUMMARY | 2024-01-29 08:22 | XMS_ITS | CCD ---
Author Organization [facility] Care Team Providers Care Teachers Assistant Name Role Phone KISHA, DR BUCK Admitting Unavailable KISHA, DR BUCK Attending Unavailable REQUEST, NONE LISTED Primary Care Unavaila an BEARD, DR BUCK Consulting Unavailable KISHA, DR BUCK Admitting Unavailable KISHA, DR BUCK Attending Unavailable REQUEST, DR HONG LISTED Primary Care Unavaila an KERR, DR JAXSON Fan Consulting Unavailable KISHA, DR BUCK Consulting Unavailable LEONEL BELL Admitting Unavailable LEONEL BELL Attending Unavailable SERVICES, [facility] Primary Care Unava ilable Unavailable Primary Care Provider UnavailCIELO Victor Attending Unavailable DRE CHUNG Attending Unavailable CIELO BEARD Attending Unavailable CIELO BEARD Attending Unavailable DRE CHUNG Attending Unavailable CIELO BEARD Attending Unavailable Medications Current Medications Medication Drug Class(es) Dates Sig (Normalized) Sig (Original) fluticasone propionate 0.05 mg/actuat metered dose nasal spray (2 sources) Corticosteroid Start: 02-28-2023 take 2 spray(s) nasal route twice daily fluticasone (Flonase) 50 MCG/ACT nasal spray INSTILL 2 SPRAYS INTO EACH NOSTRIL TWICE A DAY 30 0 02/28/2023 Active sodium fluoride 0.011 mg/mg toothpaste (2 sources) Start: 03-23-2023 Denta 5000 Plus 1.1 % cream BRUSH 2X/DAY FOR 2 MINUTES. SPIT, DO NOT RINSE. DO NOT EAT OR DRINK FOR 30 MINUTES 0 03/23/2023 Active 24 hr venlafaxine 37.5 mg extended release oral capsule (2 sources) Serotonin and Norepinephrine Reuptake Inhibitor Start: 12-03-2023 End: 12-02-2024 take 1 capsule by mouth every twenty-four hours in the morning venlafaxine XR (Effexor XR) 37.5 MG 24 hr capsule Indications: Mood changes Take 1 capsule (37.5 mg) by mouth in the morning. Do not crush or chew.. 30 capsule 0 12/03/2023 12/02/2024 Active Completed/Discontinued Medications Medication Drug Class(es) Dates Sig (Normalized) Sig (Original) 24 hr buPROPion hydrochloride 450 mg extended release oral tablet (2 sources) Aminoketone Start: 04-06-2023 End: 12-03-2023 take 1 tablet by mouth once daily in the morning buPROPion XL (Forfivo XL) 450 MG 24 hr tablet TAKE 1 TABLET BY MOUTH EVERY DAY IN THE MORNING FOR 30 DAYS 0 04/06/2023 12/03/2023 Discontinued (Therapy completed) hydrOXYzine pamoate 25 mg oral capsule (2 sources) Antihistamine Start: 03-22-2023 End: 12-03-2023 take 1 capsule by mouth once daily at bedtime as needed hydrOXYzine pamoate (Vistaril) 25 MG capsule TAKE 1 CAPSULE BY MOUTH EVERY DAY AT BEDTIME NEEDED 0 03/22/2023 12/03/2023 Discontinued (Therapy completed) loratadine 10 mg oral tablet (2 sources) End: 12-03-2023 loratadine (Claritin) 10 MG tablet 1 (one) time each day at the same time 0 12/03/2023 Discontinued (Therapy completed) ondansetron 4 mg oral tablet (2 sources) Serotonin-3 Receptor Antagonist Start: 08-22-2023 End: 12-03-2023 take 1 tablet by mouth three times daily as needed for nausea ondansetron (Zofran) 4 MG tablet TAKE 1 TABLET BY MOUTH 3 TIMES A DAY NEEDED FOR NAUSEA 0 08/22/2023 12/03/2023 Discontinued (Therapy completed) sertraline 100 mg oral tablet (2 sources) Serotonin Reuptake Inhibitor Start: 03-20-2023 End: 12-03-2023 take 1 tablet by mouth in the morning sertraline (Zoloft) 100 MG tablet Take 100 mg by mouth in the morning. 0 03/20/2023 12/03/2023 Discontinued (Therapy completed) Problems Active Problems Problem Classification Problem Date Documented Da te Episodic/Chronic Abdominal pain (2 sources) Unspecified abdominal pain; Translations: [Abdominal pain] Onset: 11-30-2023 Episodic Mood disorders (2 sources) Disturbance in mood; Translations: [Emotional lability] 12-03-2023 Episodic Other complications of (1 source) Other specified related conditions, unspecified trimester; Translations: [Other specified related conditions, unspecified trimester] Onset: 11-30-2023 Episodic Other and delivery including normal (2 sources) Second trimester ; Translations: [Encounter for supervision of normal , unspecified, second trimester] 12-03-2023 Episodic Spondylosis; intervertebral disc disorders; other back problems (1 source) Backache Onset: 11-30-2023 Episodic Unclassified (2 sources) OB Reminders Onset: 11-09-2023 11-09-2023 Past or Other Problems Problem Classification Problem Date Documented Date [...] Results Test Name Value Interpretation Reference Range Facility Urinalysis macro (dipstick) panel (U)Ordered By: Molly Bunch on 12-03-2023 Bilirubin, UA Negative Negative - 4(70) +++ mg/dL [facility] Blood, UA Negative Negative - 50 Mihir/mcL [facility] Clarity, UA Clear [facility] Color, UA Yellow [facility] Glucose, UA Negative Negative - 1999(110) ++++ mg/dL [facility] Interpretation and review of laboratory results Normal [facility] Ketones, UA Negative Negative - 160(16) ++++ mg/dL [facility] Leukocytes, UA Negative Negative - 500+++ Mila/mcL [facility] Nitrite, UA Negative Negative - Positive [facility] pH, UA 7.0 5 - 9 [facility] Protein, UA Negative Negative - 1999(20) ++++ mg/dL [facility] Spec Grav, UA 1.025 1 - 1.03 [facility] Urobilinogen, UA 1.0 0.2 - 12 mg/dL [facility] CHLAMYDIA/GC BY PCRon 2023 CHLAMYDIA/GC BY PCR SPECIMEN SOURCE CERVICAL Corrected on 11/30 AT 1003: Previously reported as CHLAMYDIA DNA(PCR) Negative (qualifier value) Chlamydia trachomatis not detected by nucleic acid amplification. This does not exclude the possibility of infection because results are dependent on adequate specimen collection. GONORRHOEAE DNA(PCR) Negative (qualifier value) Neisseria gonorrhoeae not detected by nucleic acid amplification. This does not exclude the possibility of infection because results are dependent on adequate specimen collection. Normal [facility] Comment on above: Performed By: #### C GS #### [facility] ([id number]) [address] [place] [address], [address] [place] [address] COMPLETE BLOOD COUNTon 11-30 Erythrocyte distribution width (RBC) [Ratio] 13.0 % Normal 11.5-15.0 [facility] Comment on above: Performed By: #### C BC, CMP #### [facility] ([id number]) [address] [place] [address] 16006 Hematocrit (Bld) [Volume fraction] 35.9 % Normal 35-47 [facility] Comment on above: Performed By: #### C BC, CMP #### [facility] ([id number]) [address] [place] [address] 85660 Hemoglobin (Bld) [Mass/Vol] 12.3 g/dL Normal 11.7-15.5 [facility] Comment on above: Performed By: #### C BC, CMP #### [facility] ([id number]) [address] [place] [address] 84294 MCH (RBC) [Entitic mass] 31.4 pg Normal 27-34 [facility] Comment on above: Performed By: #### C BC, CMP #### [facility] ([id number]) [address] [place] [address] 68662 MCHC (RBC) [Mass/Vol] 34.3 g/dL Normal 32-36 [facility] Comment on above: Performed By: #### C BC, CMP #### [facility] ([id number]) [address] [place] [address] 09097 MCV (RBC) [Entitic vol] 92 fL Normal 80-100 [facility] Comment on above: Performed By: #### C BC, CMP #### [facility] ([id number]) [address] [place] [address] 01972 Platelet mean volume (Bld) [Entitic vol] 8.5 fL Normal 7-12 [facility] Comment on above: Performed By: #### C BC, CMP #### [facility] ([id number]) [address] [place] [address] 77415 Platelets (Bld) [#/Vol] 327 10*3/uL Normal 150-450 [facility] Comment on above: Performed By: #### C BC, CMP #### [facility] ([id number]) [address] [place] [address] 77877 RBC COUNT 3.92 X10E12/L Normal 3.80-5.20 [facility] Comment on above: Performed By: #### C BC, CMP #### [facility] ([id number]) [address] [place] [address] 78726 WBC (Bld) [#/Vol] 12.2 10*3/uL High 4.0-11.0 [facility] Comment on above: Performed By: #### C BC, CMP #### [facility] ([id number]) [address] [place] [address] 93090 COMPREHENSIVE METABOLIC PANE [place] 11-30-2023 Albumin [Mass/Vol] 4.0 g/dL Normal 3.2-5.3 [facility] Comment on above: Performed By: #### C BC, CMP #### [facility] ([id number]) [address] [place] [address] 06672 ALP [Catalytic activity/Vol] 63 U/L Normal 39-130 [facility] Comment on above: Performed By: #### C BC, CMP #### [facility] ([id number]) [address] [place] [address] 63551 ALT [Catalytic activity/Vol] 12 U/L Normal 0-31 [facility] Comment on above: Performed By: #### C BC, CMP #### [facility] ([id number]) [address] [place] [address] 82872 Anion gap [Moles/Vol] 8 mmol/L Normal 5-15 [facility] Comment on above: Performed By: #### C BC, CMP #### [facility] ([id number]) [address] [place] [address] 13821 AST [Catalytic activity/Vol] 18 U/L Normal 0-41 [facility] Comment on above: Performed By: #### C BC, CMP #### [facility] ([id number]) [address] [place] [address] 80626 Bilirubin [Mass/Vol] 0.2 mg/dL Low 0.3-1.2 [facility] Comment on above: Performed By: #### C BC, CMP #### [facility] ([id number]) [address] [place] [address] 60267 Calcium [Mass/Vol] 9.2 mg/dL Normal 8.5-10.5 [facility] Comment on above: Performed By: #### C BC, CMP #### [facility] ([id number]) [address] [place] [address] 26859 Chloride [Moles/Vol] 104 mmol/L Normal 98-109 [facility] Comment on above: Performed By: #### C KASEY, CMP #### [facility] ([id number]) [address] [place] [address] 81582 CO2 [Moles/Vol] 24 mmol/L Normal 22-32 [facility] Comment on above: Performed By: #### C BC, CMP #### [facility] ([id number]) [address] [place] [address] 62396 Creatinine [Mass/Vol] 0.47 mg/dL Normal 0.40-1.00 [facility] Comment on above: Result Comment: METH OD TRACEABLE TO IDMS STANDARD Performed By: #### C KASEY, CMP #### [facility] ([id number]) [address] [place] [address] 86932 eGFR (CKD-EPI) NON-RACE DEPENDENT >90 Normal >59 [facility] Comment on above: Result Comment: Reported eGFR is based on the CKD-EPI 2020 equation that does not use a race coefficient. Performed By: #### C KASEY, CMP #### [facility] ([id number]) [address] [place] [address] 33214 Glucose [Mass/Vol] 106 mg/dL High 65-99 [facility] Comment on above: Performed By: #### C KASEY, CMP #### [facility] ([id number]) [address] [place] [address] 31708 Potassium [Moles/Vol] 3.3 mmol/L Low 3.5-5.0 [facility] Comment on above: Performed By: #### C BC, CMP #### [facility] ([id number]) [address] [place] [address] 17720 Protein [Mass/Vol] 7.2 g/dL Normal 6.0-8.0 [facility] Comment on above: Performed By: #### C BC, CMP #### [facility] ([id number]) [address] [place] [address] 58446 Sodium [Moles/Vol] 136 mmol/L Normal 134-146 [facility] Comment on above: Performed By: #### C BC, CMP #### [facility] ([id number]) [address] [place] [address] 78649 Urea nitrogen [Mass/Vol] 5 mg/dL Normal 5-23 [facility] Comment on above: Performed By: #### C BC, CMP #### [facility] ([id number]) [address] [place] [address] 97103 DRUG SCREEN, URINEon 024 AMPHETAMINE/METHAMP Negative Normal NEG [facility] Comment on above: Result Comment: AMPH /METH screening cut off = 1000 ng/mL Performed By: #### D BILLY #### [facility] ([id number]) [address] [place] [address] 79238 BARBITURATES Negative Normal NEG [facility] Comment on above: Result Comment: Lina iturates screening cut off value = 200 ng/mL Performed By: #### D BILLY #### [facility] ([id number]) [address] [place] [address] 13410 BENZODIAZEPINES Negative Normal NEG [facility] Comment on above: Result Comment: Jose odiazepines screening cut off value = 200 ng/mL Performed By: #### D BILLY #### [facility] ([id number]) [address] [place] [address] 86912 CANNABINOIDS Negative Normal NEG [facility] Comment on above: Result Comment: Jolie abinoids/THC screening cut off value = 50 ng/mL Performed By: #### D BILLY #### [facility] ([id number]) [address] [place] [address] 71053 COCAINE METABOLITE Negative Normal NEG [facility] Comment on above: Result Comment: Coca ine screening cut off value = 300 ng/mL Performed By: #### D BILLY #### [facility] ([id number]) [address] [place] [address] 98899 ECSTASY Negative Normal NEG [facility] Comment on above: Result Comment: Ecst asy screening cut off value = 500 ng/mL This report is intended for use in clinical monitoring or management of patients. Performed By: #### D BILLY #### [facility] ([id number]) [address] [place] [address] [place] [address] METHADONE Negative Normal NEG [facility] Comment on above: Result Comment: Meth adone screening cut off value = 300 ng/mL. Performed By: #### D BILLY #### [facility] ([id number]) [address] [place] [address] 21786 OPIATES Negative Normal NEG [facility] Comment on above: Result Comment: Opia nina screening cut off value = 300 ng/mL NOTE: This test is used for the detection of codeine, hydrocodone (>1000 ng/mL), morphine and hydromorphone (>900 ng/mL) in urine. Performed By: #### D BILLY #### [facility] ([id number]) [address] [place] [address] 19531 OXYCODONE Negative Normal NEG [facility] Comment on above: Result Comment: Oxyc odone screening cut off value = 300 ng/mL NOTE: This test is used for the detection of oxycodone and oxymorphone in urine. Performed By: #### D BILLY #### [facility] ([id number]) [address] [place] [address] 58150 PHENCYCLIDINE Negative Normal NEG [facility] Comment on above: Result Comment: Phen cyclidine screening cut off value = 25 ng/mL Performed By: #### D BILLY #### [facility] ([id number]) [address] [place] [address] [place] [address] URINALYSISon 11-30-2023 Bilirubin Ql (U) Negative Normal NEG [facility] Comment on above: Performed By: #### U A #### [facility] ([id number]) [address] [place] [address] [place] [address] BLOOD/HGB Negative Normal NEG [facility] Comment on above: Performed By: #### U A #### [facility] ([id number]) [address] [place] [address] [place] [address] Color (U) YELLOW Normal YELLOW [facility] Comment on above: Performed By: #### U A #### [facility] ([id number]) [address] [place] [address] [place] [address] Glucose Ql (U) Negative Normal NEG [facility] Comment on above: Performed By: #### U A #### [facility] ([id number]) [address] [place] [address] [place] [address] Ketones Ql (U) Negative Normal NEG [facility] Comment on above: Performed By: #### U A #### [facility] ([id number]) [address] [place] [address] [place] [address] Leukocyte esterase Test strip Ql (U) Negative Normal NEG [facility] Comment on above: Performed By: #### U A #### [facility] ([id number]) [address] [place] [address] [place] [address] Nitrite Ql (U) Negative Normal NEG [facility] Comment on above: Performed By: #### U A #### [facility] ([id number]) [address] [place] [address] [place] [address] pH (U) 6.5 [pH] Normal 5.0-8.5 [facility] Comment on above: Performed By: #### U A #### [facility] ([id number]) [address] [place] [address] 55251 Protein Ql (U) Negative Normal NEG [facility] Comment on above: Performed By: #### U A #### [facility] ([id number]) [address] [place] [address] 61599 Specific gravity (U) [Rel density] <1.005 Normal 1.003-1.035 [facility] Comment on above: Performed By: #### U A #### [facility] ([id number]) [address] [place] [address] 53327 TURBIDITY CLEAR Normal CLEAR [facility] Comment on above: Performed By: #### U A #### [facility] ([id number]) [address] [place] [address] 76969 Urobilinogen Qn (U) 0.2 {Luiz'U}/dL Normal <1.1 [facility] Comment on above: Performed By: #### U A #### [facility] ([id number]) [address] [place] [address] 67297 URINE CULTUREon 11-30-2023 Bacteria identified Cx Nom (U) CULTURE RESULTS <10,000 ORGANISMS/ML NORMAL URO GENITAL ANTWON Normal [facility] Comment on above: Performed By: #### 6 30-4 #### [facility] ([id number]) [address] [place] [address], [address] [place] [address] VAGINITIS PANEL PCRon 2023 VAGINITIS PANEL PCR BACT. VAGINOSIS DNA Not detected (qualifier value) Qualitative results are reported based on detection and quantitation of targeted organism markers which include: Lactobacillus spp. (L. crispatus and L. jensenii), Gardnerella vaginalis, Atopobium vaginae, Bacterial Vaginosis Associated Bacteria-2 (BVAB-2) and Megasphaera-1 MARE SPECIES DNA Not detected (qualifier value) Mare species not detected include: C. albicans, C. tropicalis, C. parapsilosis or C. dubliniensis MARE KRUSEI DNA Not detected (qualifier value) No Mare krusei detected MARE GLABRATA DNA Not detected (qualifier value) No Mare glabrata detected TRICHOMONAS VAG DNA Not detected (qualifier value) No Trichomonas vaginalis detected NOTE BD MAX Vaginal Panel has not been evaluated for patients under 18 years old. Results for these patients should be reviewed and assessed in accordance with clinical presentation to determine patient diagnosis. Normal [facility] Comment on above: Performed By: #### V PPCR #### [facility] ([id number]) [address] [facility], [address] [place] [address] US THYROIDon 05-15-2021 US THYROID EXAMINATION: US [...] JAXSON KERR Date: 2021-05-15 07:09 Normal [facility] CBC AUTO DIFFon 05-13-2021 BASO # 0.1 103/ul Normal 0.0-0.1 [facility] Comment on above: Performed By: #### C BC #### [facility] [address] [place], [place] [address] Ellen Sally Basophils/100 WBC (Bld) 0.8 % Normal 0.2-2.0 [facility] Comment on above: Performed By: #### C BC #### [facility] [address] [place], [place] [address] Ellen Sally EO # 0.3 103/ul Normal 0.0-0.7 [facility] Comment on above: Performed By: #### C BC #### [facility] [address] [place], [place] [address] Ellen Sally Eosinophils/100 WBC (Bld) 3.6 % Normal 0.9-7.0 [facility] Comment on above: Performed By: #### C BC #### [facility] [address] [place] [address] Ellen Sally Erythrocyte distribution width (RBC) [Ratio] 12.4 % Normal 11.0-15.0 [facility] Comment on above: Performed By: #### C BC #### [facility] [address] [place] [address] Ellen Sally Hematocrit (Bld) [Volume fraction] 42.3 % Normal 36.0-48.0 [facility] Comment on above: Performed By: #### C BC #### [facility] [address] [place] [address] Ellen Sally Hemoglobin (Bld) [Mass/Vol] 14.4 g/dL Normal 12.0-16.0 [facility] Comment on above: Performed By: #### C BC #### [facility] [address] [place] [address] Ellen Sally IG # 0.01 10e3/ul Normal 0.00-0.03 [facility] Comment on above: Performed By: #### C BC #### [facility] [address] [place] [address] Ellen Sally IG % 0.1 % Normal 0.0-0.5 [facility] Comment on above: Performed By: #### C BC #### [facility] [address] [place] [address] Ellen Sally LYMPH # 2.4 103/ul Normal 1.2-3.8 [facility] Comment on above: Performed By: #### C BC #### [facility] [address] [place] [address] Ellen Sally Lymphocytes/100 WBC (Bld) 30.1 % Normal 20.5-60.0 [facility] Comment on above: Performed By: #### C BC #### [facility] [address] [place], [place] [id number] Ellen Sally MANUAL DIFF REQ NO Normal [facility] Comment on above: Performed By: #### C BC #### [facility] [address] [place], [place] [address] Ellen Sally MCH (RBC) [Entitic mass] 30.4 pg Normal 26.7-34.0 [facility] Comment on above: Performed By: #### C BC #### [facility] [address] [place] [address] Ellen Sally MCHC (RBC) [Mass/Vol] 34.0 g/dL Normal 29.9-35.2 [facility] Comment on above: Performed By: #### C BC #### [facility] [address] [place] [address] Ellen Sally MCV (RBC) [Entitic vol] 89.4 fL Normal 81.0-99.0 [facility] Comment on above: Performed By: #### C BC #### [facility] [address] [place], [place] [address] Ellen Sally MONO # 0.4 103/ul Normal 0.3-0.8 [facility] Comment on above: Performed By: #### C BC #### [facility] [address] [place] [address] Ellen Sally Monocytes/100 WBC (Bld) 5.4 % Normal 1.7-12.0 [facility] Comment on above: Performed By: #### C BC #### [facility] [address] [place] [address] Ellen Sally NEUT # 4.7 103/ul Normal 1.4-6.5 [facility] Comment on above: Performed By: #### C BC #### [facility] [address] [place], [place] [address] Ellen Sally Neutrophils/100 WBC (Bld) 60.0 % Normal 43.0-75.0 [facility] Comment on above: Performed By: #### C BC #### [facility] [address] [place] [id number] Ellenaixa Zavala Platelet mean volume (Bld) [Entitic vol] 9.4 fL Critically low 9.5-13.5 [facility] Comment on above: Performed By: #### C BC #### [facility] [address] [place] [address] Ellenaixa Zavala PLT 449 103/ul Normal 150-450 [facility] Comment on above: Performed By: #### C BC #### [facility] [address] [place] [address] Ellen Sally RBC 4.73 106/ul Normal 4.20-5.40 [facility] Comment on above: Performed By: #### C BC #### [facility] [address] [place] [address] Ellenaixa Zavala WBC 7.8 103/ul Normal 4.0-11.0 [facility] Comment on above: Performed By: #### C BC #### [facility] [address] [place] [address] Ellenaixa Zavala PAP ACOG PANEL 2: 21 to 29on 05-08-2021 . . Normal [facility] Comment on above: Performed By: #### 4 [id number] #### [facility] [address] [place], [place] [id number] Ellen Zavala Age Gdln ACOG Testing 21-29 Normal [facility] Comment on above: Performed By: #### 4 [id number] #### [facility] [address] [place], [place] [id number] Ellen Sally DIAGNOSIS: Comment Normal [facility] Comment on above: Result Comment: NEGA TIVE FOR INTRAEPITHELIAL LESION OR MALIGNANCY. Performed By: #### 4 [id number] #### [facility] [address] [place], [place] [id number] Ellen Zavala Methodology: Comment Normal [facility] Comment on above: Result Comment: This liquid based ThinPrep(R) pap test was screened with the use of an image guided system. Performed By: #### 4 [id number] #### [facility] [address] [place], [place] [address] Ellen Zavala Note: Comment [facility] Comment on above: Result Comment: The Pap smear is a screening test designed to aid in the detection of premalignant and malignant conditions of the uterine cervix. It is not a diagnostic procedure and should not be used as the sole means of detecting cervical cancer. Both false-positive and false-negative reports do occur. . Performed By: #### 4 [id number] #### [facility] [address] [place] [address] Ellen Zavala Performed by: Comment Normal [facility] Comment on above: Result Comment: Olga Guidry, Contact Center Associate (ASCP) Performed By: #### 4 [id number] #### [facility] [address] [place] [address] Ellen Sally Reflex Criteria: Comment [facility] Comment on above: Result Comment: The HPV DNA reflex criteria were not met with this specimen result therefore, no HPV testing was performed. . Performed By: #### 4 [id number] #### [facility] [address] [place] [address] Ellen Zavala Specimen adequacy: Comment Normal [facility] Comment on above: Result Comment: Sati sfactory for evaluation. Endocervical and/or squamous metaplastic cells (endocervical component) are present. Performed By: #### 4 [id number] #### [facility] [address] [place] [address] Ellen Zavala Coding Summaryon 06-25-2020 Coding Summary CODING DATE: 06/25/2020 [facility] STATUS: PAYOR: Workers Compensation ADMIT DX: REASON [...] Manuel Ayala Date Saved: 06/25/2020 11:13 am [facility] Coding Summary CODING DATE: 06/25/2020 [facility] STATUS: Home PAYOR: Workers Compensation ADMIT DX: [...] Manuel Ayala Date Saved: 06/25/2020 11:10 am [facility] Consent Formson 06-24-2020 Consent Forms [id number] .00OTGTIFF [facility] ED Clinical Summaryon 2019 ED Clinical Summary [facility] - Emergency Department [address] [place] [address] [id number] ED Clinical Summary PERSON INFORMATION Name: MELLISA SAUNDERS Age: 24 Years Sex: FEMALE : 1995 MRN: Acct#: Visit Reason: Finger laceration; RIGHT FINGER LACERATION Arrival: 06/24/2020 08:39:04 Discharge: 06/24/2020 09:50:00 LOS: 000 01:11 Check In: 06/24/2020 08:39:04 Checkout:06/24/2020 09:50:00 Address: [address] [place] [address] PCP: Provider, None PROVIDER INFORMATION Provider Role Assigned Unassigned Chandler Gallo ED Provider 06/24/2020 09:04:13 Cary Francis RN ED Nurse 06/24/2020 09:06:19 VITALS INFORMATION Vital Sign Triage Latest Temperature Tympanic Temperature Temporal Artery Pulse Rate 104 bpm 104 bpm O2 Sat 95 % 95 % Respiratory Rate 16 br/min 16 br/min Blood Pressure /62 mmHg /62 mmHg MEDICAL INFORMATION Medications Given: Allergy Information: No known allergies PHYSICIAN DOCUMENTATION Patient: MELLISA SAUNDERS Age: 24 years Sex: FEMALE : 1995 [...] noted. Impression and Plan Diagnosis Finger laceration (CVU00-TD S61.219A, Discharge, Medical) Plan Condition: Improved. Disposition: Discharged: Time 06/24/2020 09:29:00, to home. Patient was given the following educational materials: Laceration Care, Adult, Besg-ou-Yjqe, Laceration Care, Adult, Fxrm-ox-Ngik. Follow up with: None Provider Within 3 to 5 days; Return to Emergency Department Within 3 to 5 days. Counseled: Patient, Regarding diagnosis, Regarding diagnostic results, Regarding treatment plan, Regarding prescription, Patient indicated understanding of instructions. DISCHARGE INFORMATION: Discharge Disposition: Home Discharge Location: Home PATIENT EDUCATION INFORMATION Instructions: Laceration Care, Adult, Pzhf-hw-Tnwn Follow-Up: With: Address: When: Return to Emergency Department Within 3 to 5 days With: Address: When: None Provider Within 3 to 5 days DIAGNOSIS: Finger laceration Patient Understands: Yes - Patient/family/caregi philipp verbalizes understanding of instructions given Comment: [facility] ED Note - Physicianon 2019 ED Note - Physician Patient: MELLISA SAUNDERS Age: 24 years Sex: FEMALE : 1995 [...] noted. Impression and Plan Diagnosis Finger laceration (EAU79-LL S61.219A, Discharge, Medical) Plan Condition: Improved. Disposition: Discharged: Time 06/24/2020 09:29:00, to home. Patient was given the following educational materials: Laceration Care, Adult, Gzdp-zt-Lntx, Laceration Care, Adult, Uria-gr-Hwle. Follow up with: None Provider Within 3 to 5 days; Return to Emergency Department Within 3 to 5 days. Counseled: Patient, Regarding diagnosis, Regarding diagnostic results, Regarding treatment plan, Regarding prescription, Patient indicated understanding of instructions. [Electronically Signed on: 06/24/2020 09:44 EDT] Chandler Gallo MD [Verified on: 06/24/2020 09:44 EDT] Chandler Gallo MD [facility] ED Note-Nursingon 06-24-2020 ED Note-Nursing Ambulates [...] joint that is 1cm . Awaiting exam. Normal [facility] ED Patient Education Noteon 06-24-2020 ED [...] needed: ? Soap. ? Water. ? Hand mask designer. ? Bandage (dressing). ? Antibiotic ointment. ? Clean towel. How to take care of your cut Wash your hands with soap and water before touching your wound or changing your bandage. If soap and water are not available, use hand mask designer. If your doctor used stitches or jaye: [...] off the skin. General instructions ? Take wmtq-sug-ukjgzzk and prescription medicines only as told by [...] Reviewed: 11/03/2018 Elsevier Patient Education ? 2019 [employer] Normal [facility] ED Patient Summaryon 06-24- 020 ED Patient Summary [facility] - Emergency Department [address] [place] [address] PATIENT DISCHARGE INSTRUCTIONS Patient Information Name: MELLISA SAUNDERS Age: 24 Years Date of : 1995 Reason For Visit: Finger laceration; RIGHT FINGER LACERATION Arrival Time: 06/24/2020 08:39:04 Primary Care Physician: Provider, None Attending Physician: Chandler Gallo Comment: Visit Diagnosis: Diagnoses This Visit Finger laceration ([id number]) Finger laceration (S61.219A) Prescription Information: If you have been given a prescription for narcotics, seek immediate medical attention if you have any difficulty breathing or any sudden status changes such as confusion and sleepiness. If you or anyone you know is experiencing suicidal thoughts, mental health, alcohol and/or drug addiction problems; contact the [facility] 20/05 Crisis Hotline -text 4HGGY ip 697583. If you received any narcotics, sedation, or [...] and treatment you received today in the [facility] Emergency Department were for an urgent problem and are not intended as complete care. It is important for you to follow up with a doctor, nurse practitioner, or physician?s assistant tennis coach for ongoing care. If your symptoms become [...] so we can reach you if necessary. [facility] Emergency Department has provided you with a complete list of medications post discharge. Please inform your manager primary/provider of your visit and for further instruction [...] needed: ? Soap. ? Water. ? Hand mask designer. ? Bandage (dressing). ? Antibiotic ointment. ? Clean towel. How to take care of your cut Wash your hands with soap and water before touching your wound or changing your bandage. If soap and water are not available, use hand mask designer. If your doctor used stitches or jaye: [...] in water until after the stitches or jyae have been removed. ? Clean the wound [...] off the skin. General instructions ? Take fese-uju-uxmcufh and prescription medicines only as told by [...] 04/01/2009 Document Revised: 12/12/2018 Document Reviewed: 11/03/2018 [employer] Patient Education ? 2019 [employer]. Viruses or Bacteria What?s got you sick? [...] for Disease Control and Prevention June 2014 [facility] Release of Informationon Release of Information [id number] .00OTGTIFF [facility] Release of Informationon Release of Information [id number] .00OTGTIFF [facility] Coding Summaryon 07-30-2019 Coding Summary CODING DATE: 07/30/2019 [facility] STATUS: PAYOR: Medicaid HMO ADMIT DX: REASON FOR VISIT DX: R10.30 [...] Manuel Ayala Date Saved: 07/30/2019 04:37 pm [facility] Coding Summary CODING DATE: 07/30/2019 [facility] STATUS: Home PAYOR: Medicaid HMO ADMIT DX: REASON FOR VISIT DX: R10.30 [...] in slightly different terminology. Revised Coded By: Ilya Ayala' Revised Date Saved: 07/30/2019 04:29 pm [facility] .Auto Diff 1on 07-29-2019 Auto Wilkinson % 6 % Normal 1-12 [facility] Comment on above: Performed By: #### 7 794980, 36854567, 31144945, 81092799, 5847004309, 6754610532, 4646334, 4307195, 5342536 #### [facility] (DEFAULT) [address] [place] [address] 08886 Baso Abs# 0.0 x10 Normal 0.0-0.2 [facility] Comment on above: Performed By: #### 7 431174, 78971345, 76926801, 13513936, 3452760316, 9015215983, 5513036, 3974078, 8123840 #### [facility] (DEFAULT) [address] [place] [address] 99460 Basophils/100 WBC (Bld) 0.6 % Normal 0.2-2.0 [facility] Comment on above: Performed By: #### 7 271439, 64256701, 51205531, 66559520, 9399869208, 4053460834, 0637558, 9115765, 2536674 #### [facility] (DEFAULT) [address] [place] [address] 16567 Eos Abs# 0.1 x10 Normal 0.0-0.4 [facility] Comment on above: Performed By: #### 7 111997, 50346978, 41398379, 41042897, 6390436513, 7232351287, 0857383, 6393631, 6046766 #### [facility] (DEFAULT) [address] [place] [address] 76343 Eosinophils/100 WBC (Bld) 1.0 % Normal 0.9-4.0 [facility] Comment on above: Performed By: #### 7 387969, 46190990, 93264796, 56145091, 4199680873, 6437797147, 8118840, 4567274, 1265282 #### [facility] (DEFAULT) [address] [place] [address] 81669 Lymphocytes (Bld) [#/Vol] 1.8 x10 Normal 1.3-2.9 [facility] Comment on above: Performed By: #### 7 889988, 52264424, 70209980, 54157504, 3182389178, 0087634351, 2871782, 8964759, 6934922 #### [facility] (DEFAULT) [address] [place] [address] 35676 Lymphocytes/100 WBC (Bld) 20 % Normal 14-48 [facility] Comment on above: Performed By: #### 7 730378, 12292254, 71099173, 42217924, 3474134584, 6757895226, 3491101, 8843678, 7200146 #### [facility] (DEFAULT) [address] [place] [address] 63704 Wilkinson Abs# 0.5 x10 Normal 0.0-0.8 [facility] Comment on above: Performed By: #### 7 046492, 18283645, 08267583, 56474585, 1133995965, 2279652354, 5846250, 4020425, 1890143 #### [facility] (DEFAULT) [address] [place] [address] Neut Abs# 6.5 x10 Normal 1.5-9.2 [facility] Comment on above: Performed By: #### 7 359591, 87578799, 33658260, 48640855, 8808418607, 3744916614, 1498897, 2031500, 5743719 #### [facility] (DEFAULT) [address] [place] [address] Neutrophils/100 WBC (Bld) 73 % Normal 44-88 [facility] Comment on above: Performed By: #### 7 695346, 22340243, 22211572, 94060151, 5583777188, 1326553681, 6746817, 5920729, 7745364 #### [facility] (DEFAULT) [address] [place] [address] ABORhon 07-29-2019 ABO and Rh group Nom (Bld) Hx Check: Not Found Anti-A: 0 Anti-B: 4+ Anti-D: 4+ DCon: NT A1: 4+ B: 0 ABORh Interp: B POS [facility] Comment on above: Performed By: #### 7 008863, 89849275, 23280577, 61415527, 6459999133, 7399332039, 0928729, 5228155, 0534604 #### [facility] (DEFAULT) [address] [place] [address] ABORh Retypeon 07-29-2019 ABO and Rh group Nom (Bld) Ordered by Discern. Anti-A: 0 Anti-B: 4+ Anti-D: 4+ DCon: NT A1: 4+ B: 0 ABORh Retype: B POS [facility] Comment on above: Performed By: #### 7 081330, 03338516, 11421918, 09956692, 7558741519, 3549603890, 6908965, 8622976, 5211816 #### [facility] (DEFAULT) [address] [place] [address] ABSC Gelon 07-29-2019 ABSC Gel Negative Normal [facility] Comment on above: Performed By: #### 7 331539, 19521654, 27959666, 27220441, 4668742102, 6646420384, 2817209, 2071119, 4175999 #### [facility] (DEFAULT) [address] [place] [address] CBC w/ Auto Diffon 9 Erythrocyte distribution width (RBC) [Ratio] 11.9 % Normal 11.5-15.0 [facility] Comment on above: Performed By: #### 7 836759, 78477913, 54185374, 70385482, 8743967052, 3540525238, 2236662, 6779663, 1309266 #### [facility] (DEFAULT) [address] [place] [address] Hematocrit (Bld) [Volume fraction] 36.6 % Normal 33.7-40.4 [facility] Comment on above: Performed By: #### 7 345398, 45199559, 15858806, 46848692, 9663440342, 8450323588, 9770488, 2531376, 3523719 #### [facility] (DEFAULT) [address] [place] [address] Hemoglobin (Bld) [Mass/Vol] 12.6 g/dL Normal 11.3-15.9 [facility] Comment on above: Performed By: #### 7 891149, 47758771, 89899994, 38466977, 8199857606, 6916071251, 5575140, 8768566, 5651313 #### [facility] (DEFAULT) [address] [place] [address] Man Diff? Auto Normal [facility] Comment on above: Performed By: #### 7 513252, 53642676, 67008896, 22094535, 7223078472, 5082598766, 4280665, 5709474, 9513533 #### [facility] (DEFAULT) [address] [place] [address] 98346 MCH (RBC) [Entitic mass] 31 pg Normal 24-34 [facility] Comment on above: Performed By: #### 7 347868, 35094203, 65458800, 64288160, 2781882254, 8119604714, 3364756, 9252199, 4473942 #### [facility] (DEFAULT) [address] [place] [address] MCHC (RBC) [Mass/Vol] 34 g/dL Normal 26-37 [facility] Comment on above: Performed By: #### 7 154377, 84253938, 60701605, 12576757, 5785074464, 8664419809, 2416024, 8938248, 2901532 #### [facility] (DEFAULT) [address] [place] [address] 45391 MCV (RBC) [Entitic vol] 91 fL Normal 81-100 [facility] Comment on above: Performed By: #### 7 158872, 89574268, 04284111, 73203263, 3828666104, 6360991290, 8828115, 6267348, 5495509 #### [facility] (DEFAULT) [address] [place] [address] 74840 Platelet mean volume (Bld) [Entitic vol] 9.6 fL Normal 6.3-10.2 [facility] Comment on above: Performed By: #### 7 909171, 06939764, 09239224, 62781570, 5669532026, 5923596298, 4165561, 3950964, 1839615 #### [facility] (DEFAULT) [address] [place] [address] 68852 Platelets (Bld) [#/Vol] 379 x10 Normal 138-427 [facility] Comment on above: Performed By: #### 7 386193, 51939785, 92338822, 65807177, 0303082247, 7386565733, 2125695, 3696167, 3090152 #### [facility] (DEFAULT) [address] [place] [address] 49688 RBC (Bld) [#/Vol] 4.02 x10 Normal 3.70-5.30 [facility] Comment on above: Performed By: #### 7 866954, 58182634, 05736043, 54039059, 0749759282, 6056454831, 3337960, 7692753, 6191516 #### [facility] (DEFAULT) [address] [place] [address] 88427 WBC (Bld) [#/Vol] 8.9 x10 [facility] Comment on above: Performed By: #### 7 796233, 28705482, 06642338, 77607898, 9409481536, 7148249669, 6194737, 9118648, 4311378 #### [facility] (DEFAULT) [address] [place] [address] 06119 CMP Standardon 07-29-2019 eGFR Non AA >60 [facility] Comment on above: Performed By: #### 7 855718, 55628015, 53271907, 46137615, 6342517897, 3994988256, 2402828, 3624429, 6341357 #### [facility] (DEFAULT) [address] [place] [address] 25903 eGFR AA >60 [facility] Comment on above: Result Comment: Ditch Worker christina Kidney disease could be indicated at eGFRs of less than 60 ml/min/1.73m2. Kidney Failure is indicated at less than 15 ml/min/1.73m2 Performed By: #### 7 305475, 26690661, 80796280, 64182486, 2437736112, 6973135950, 0126355, 0845901, 8832505 #### [facility] (DEFAULT) [address] [place] [address] 72737 Albumin [Mass/Vol] 4.8 g/dL Normal 3.5-5.0 [facility] Comment on above: Performed By: #### 7 773006, 71426784, 45084970, 91599209, 9685679470, 1691511779, 8052378, 7785965, 7064302 #### [facility] (DEFAULT) [address] [place] [address] 13770 Albumin/Globulin [Mass ratio] 2.0 {ratio} Normal 1.4-2.6 [facility] Comment on above: Performed By: #### 7 655943, 86384303, 23097414, 07545384, 1471934085, 4428817571, 0957691, 7148106, 5437292 #### [facility] (DEFAULT) [address] [place] [address] Alk Phos 50 IU/L Normal 32-91 [facility] Comment on above: Performed By: #### 7 740537, 19846072, 21669578, 44567510, 1955362320, 7006388117, 5861574, 1498247, 3293248 #### [facility] (DEFAULT) [address] [place] [address] ALT/SGPT 13.0 IU/L Low 14.0-54.0 [facility] Comment on above: Performed By: #### 7 140775, 17355886, 70133947, 35319623, 6458150265, 7901706076, 1852731, 2634382, 3529846 #### [facility] (DEFAULT) [address] [place] [address] Anion gap [Moles/Vol] 15.0 mmol/L Normal 5.0-19.0 [facility] Comment on above: Performed By: #### 7 525577, 55208219, 02094537, 56948508, 4426975971, 7871984801, 8929820, 5011652, 6861932 #### [facility] (DEFAULT) [address] [place] [address] 27121 AST/SGOT 15 IU/L Normal 15-41 [facility] Comment on above: Performed By: #### 7 168832, 78867559, 32104806, 25295867, 4444470067, 3896646345, 6159753, 7245506, 2544089 #### [facility] (DEFAULT) [address] [place] [address] Bili Total 0.6 mg/dL Normal 0.3-1.2 [facility] Comment on above: Performed By: #### 7 836396, 86885207, 12732595, 22017025, 3949513904, 7720717058, 5943883, 2829312, 1150427 #### [facility] (DEFAULT) [address] [place] [address] 20978 Calcium [Mass/Vol] 9.4 mg/dL Normal 8.9-10.3 [facility] Comment on above: Performed By: #### 7 425004, 32609488, 77999276, 47348968, 6239588482, 3703089109, 2770592, 3694229, 0754367 #### [facility] (DEFAULT) [address] [place] [address] 65634 Chloride [Moles/Vol] 107 mmol/L Normal 101-111 [facility] Comment on above: Performed By: #### 7 805330, 00704203, 24747701, 34216730, 6081203263, 4059925908, 3126491, 8986546, 3399174 #### [facility] (DEFAULT) [address] [place] [address] 25906 CO2 [Moles/Vol] 22 mmol/L Normal 21-32 [facility] Comment on above: Performed By: #### 7 027264, 30767604, 22589833, 41702136, 6242622952, 3555437119, 6739728, 9296204, 5689754 #### [facility] (DEFAULT) [address] [place] [address] 32302 Creatinine [Mass/Vol] 0.58 mg/dL Low 0.60-1.30 [facility] Comment on above: Performed By: #### 7 085765, 84181389, 13509833, 37524041, 1609136831, 2884888946, 5902570, 0017939, 1716815 #### [facility] (DEFAULT) [address] [place] [address] 76028 Globulin (S) [Mass/Vol] 2.4 g/dL Normal 1.5-4.3 [facility] Comment on above: Performed By: #### 7 790019, 58334329, 84147666, 57765531, 7810842624, 2220668202, 4944978, 2767608, 7213844 #### [facility] (DEFAULT) [address] [place] [address] 40832 Glucose [Mass/Vol] 93.0 mg/dL Normal 74.0-118.0 [facility] Comment on above: Performed By: #### 7 976977, 75232721, 98870943, 78315078, 0678986653, 2682027500, 4369524, 4798339, 2474249 #### [facility] (DEFAULT) [address] [place] [address] 27985 Osmolality [Osmolality] 277 mOsm/L [facility] Comment on above: Performed By: #### 7 396689, 65452366, 49044972, 33853045, 7900060948, 7576348607, 3233017, 7870159, 9864655 #### [facility] (DEFAULT) [address] [place] [address] 34161 Potassium [Moles/Vol] 3.5 mmol/L Low 3.6-5.1 [facility] Comment on above: Performed By: #### 7 114241, 91967118, 15156772, 89400975, 4660700204, 1329675476, 0893608, 0082042, 6868638 #### [facility] (DEFAULT) [address] [place] [address] 03436 Protein [Mass/Vol] 7.2 g/dL Normal 6.5-8.1 [facility] Comment on above: Performed By: #### 7 414825, 88216310, 83722107, 55312004, 4457995176, 7750497271, 1258662, 6231823, 1177021 #### [facility] (DEFAULT) [address] [place] [address] 22399 Sodium [Moles/Vol] 140.0 mmol/L Normal 136.0-144.[address] [facility] Comment on above: Performed By: #### 7 651844, 58980748, 79107035, 98509648, 1391963933, 7866168923, 6290415, 8225697, 1690446 #### [facility] (DEFAULT) [address] [place] [address] 74171 Urea nitrogen [Mass/Vol] 7 mg/dL Low 8-26 [facility] Comment on above: Performed By: #### 7 471411, 38870575, 37523022, 70518495, 9966351107, 2529664536, 7889400, 1448217, 5520182 #### [facility] (DEFAULT) [address] [place] [address] Urea nitrogen/Creatinine [Mass ratio] 12.0 mg/mg Normal 4.6-16.2 [facility] Comment on above: Performed By: #### 7 [id number], [id number], [id number], [id number], [id number], [id number], [id number], [id number], [id number] #### [facility] (DEFAULT) [address] [place] [address] ED Clinical Summaryon 2018 ED Clinical Summary [facility] - Emergency Department [address] [place] [address] ED Clinical Summary PERSON INFORMATION Name: MELLISA SAUNDERS Age: 23 Years Sex: FEMALE : 1995 MRN: Acct#: Visit Reason: Vaginal bleeding - < 20 wks ; VAGINAL BLEEDING Arrival: 07/29/2019 07:42:00 Discharge: 07/29/2019 11:20:00 LOS: 000 03:38 Check In: 07/29/2019 07:42:00 Checkout:07/29/2019 11:20:00 Address: [address] [place] [address] PCP: Provider, None PROVIDER INFORMATION Provider Role Assigned Unassigned Akshat PORTILLO, Lisbet ED Nurse 07/29/2019 08:03:39 Chandler Gallo ED [...] Instructions: Subchorionic Hematoma Follow-Up: With: Address: When: Jenny Gibran [address] [place] [address] Business (1) Within 3 to 5 days With: Address: When: None Provider Within 3 to 5 days DIAGNOSIS: Subchorionic hemorrhage in first trimester Patient Understands: Yes - Patient/family/caregi philipp verbalizes understanding of instructions given Comment: [facility] ED Note - Physicianon 2018 ED Note - Physician Patient: MELLISA SAUNDERS Age: 23 years Sex: FEMALE : 1995 [...] Plan Diagnosis Subchorionic hemorrhage in first trimester (WOT65-PE O41.8X10, Discharge, Medical) Plan Condition: Stable. Disposition: [...] on: 07/29/2019 11:30 EDT] Chandler Gallo MD [facility] ED Note-Nursingon 07-29-2019 ED Note-Nursing Pt arrives to ED wit h vaginal bleeding for about 1 hour. Pt states she is about 7 weeks and she is pooling blood. Pt states she went to the OB about 3 weeks ago and had a confirmed . Pt states she is having mild cramping. [facility] ED Patient Education Noteon 07-29-2019 ED [...] 01/29/2008 Document Revised: 12/10/2017 Document Reviewed: 12/10/2017 [employer] Interactive Patient Education ? 2019 [employer]. Normal [facility] ED Patient Summaryon 019 ED Patient Summary [facility] - Emergency Department [address] [place] [address] PATIENT DISCHARGE INSTRUCTIONS Patient Information Name: MELLISA SAUNDERS Age: 23 Years Date of : 1995 Reason For Visit: Vaginal bleeding - < 20 wks ; VAGINAL BLEEDING Arrival Time: 07/29/2019 07:42:00 Primary Care Physician: Provider, None Attending Physician: Chandler Gallo Comment: Visit Diagnosis: Diagnoses This Visit Subchorionic hemorrhage in first trimester (O41.8X10) Vaginal bleeding - < 20 wks ([id number]) Prescription Information: If you have been given a prescription for narcotics, seek immediate medical attention if you have any difficulty breathing or any sudden status changes such as confusion and sleepiness. If you or anyone you know is experiencing suicidal thoughts, mental health, alcohol and/or drug addiction problems; contact the [facility] 20/05 Crisis Hotline -Text 4HAQG mt 828464. If you received any narcotics, sedation, or [...] documents With: Address: When: Jenny Leary [address] [place] [address] Business (1) Within 3 to 5 days With: Address: When: None Provider Within 3 to 5 days Medication Information: The exam and treatment you received today in the [facility] Emergency Department were for an urgent problem and are not intended as complete care. It is important for you to follow up with a doctor, nurse practitioner, or physician?s assistant tennis coach for ongoing care. If your symptoms become [...] so we can reach you if necessary. [facility] Emergency Department has provided you with a complete list of medications post discharge. Please inform your manager primary/provider of your visit and for further instruction [...] 01/29/2008 Document Revised: 12/10/2017 Document Reviewed: 12/10/2017 [employer] Interactive Patient Education ? 2019 [employer] Viruses or Bacteria What?s got you [...] Disease Control and Prevention June 2014 Normal [facility] PT/PTTon 07-29-2019 aPTT Coag (Bld) [Time] 31 second(s) Normal 25-35 [facility] Comment on above: Performed By: #### 7 [id number], [id number], [id number], [id number], [id number], [id number], [id number], [id number], [id number] #### [facility] (DEFAULT) [address] [place] [address] INR Coag (PPP) [Relative time] 1.07 {INR} Normal 0.91-1.11 [facility] Comment on above: Performed By: #### 7 [id number], [id number], [id number], [id number], [id number], [id number], [id number], 8353906, [id number] #### [facility] (DEFAULT) [address] [place] [address] PT Coag (PPP) [Time] 11.0 second(s) Normal 9.7-11.8 [facility] Comment on above: Performed By: #### 7 [id number], [id number], [id number], [id number], [id number], [id number], [id number], [id number], [id number] #### [facility] (DEFAULT) [address] [place] [address] RhIG.on 07-29-2019 RhIG. No. Vials RhI RhIG Candidate?: No Date to Give: [id number] RhIG Status: NA [facility] Comment on above: Performed By: #### 7 [id number], [id number], [id number], [id number], [id number], [id number], 0887702, 2730967, [id number] #### [facility] (DEFAULT) [address] [place] [address] UA [id number] 07-29-2019 RBC (U) [#/Vol] Few Normal [facility] Comment on above: Order Comment: Urina lysis Microscopic order added on by Discern Expert Rules system. Performed By: #### 1 [id number], [id number] ####[facility] (DEFAULT)[address] [place] [address] UA Bacteria None Normal [facility] Comment on above: Order Comment: Urina lysis Microscopic order added on by Dis[employer] Expert Rules system. Performed By: #### 1 [id number], [id number] ####[facility] (DEFAULT)[address] [place] [address] UA Renal Epi Rare Normal [facility] Comment on above: Order Comment: Urina lysis Microscopic order added on by Dis[employer] Expert Rules system. Performed By: #### 1 [id number], [id number] ####[facility] (DEFAULT)[address] [place] [address] UA Squam Epi Rare [facility] Comment on above: Order Comment: Urina lysis Microscopic order added on by Dis[employer] Expert Rules system. Performed By: #### 1 [id number], [id number] ####[facility] (DEFAULT)[address] [place] [address] UA Urothelial Cells Rare Abnormal None Seen [facility] Comment on above: Order Comment: Urina lysis Microscopic order added on by [employer] Expert Rules system. Performed By: #### 1 [id number], [id number] ####[facility] (DEFAULT)[address] [place] [address] UA WBC None Seen [facility] Comment on above: Order Comment: Urina lysis Microscopic order added on by [employer] Expert Rules system. Performed By: #### 1 [id number], [id number] ####[facility] (DEFAULT)[address] [place] [address] UA w Culture if Ind Standard on 07-29-2019 Breakpoint UA [facility] Comment on above: Performed By: #### 1 [id number], [id number] ####[facility] (DEFAULT)[address] [place] [address] Color (U) STRAW [facility] Comment on above: Performed By: #### 1 [id number], [id number] ####[facility] (DEFAULT)[address] [place] [address] Culture? No Normal [facility] Comment on above: Performed By: #### 1 [id number], [id number] ####[facility] (DEFAULT)[address] [place] [address] Glucose (U) [Mass/Vol] Negative [facility] Comment on above: Performed By: #### 1 [id number], [id number] ####[facility] (DEFAULT)[address] [place] [address]77 Ketones Ql (U) TRACE [facility] Comment on above: Performed By: #### 1 [id number], [id number] ####[facility] (DEFAULT)[address] [place] [address] 00496 Micro? Indicated [facility] Comment on above: Performed By: #### 1 [id number], [id number] ####[facility] (DEFAULT)[address] [place] [address] UA Bilirubin Negative Normal [facility] Comment on above: Performed By: #### 1 [id number], [id number] ####[facility] (DEFAULT)[address] [place] [address] UA Blood MODERATE Abnormal NEGATIVE [facility] Comment on above: Performed By: #### 1 [id number], [id number] ####[facility] (DEFAULT)[address] [place] [address] UA Clarity CLEAR Normal CLEAR [facility] Comment on above: Performed By: #### 1 [id number], [id number] ####[facility] (DEFAULT)[address] [place] [address]85 UA Leuk Est Negative Normal NEGATIVE [facility] Comment on above: Performed By: #### 1 [id number], [id number] ####[facility] (DEFAULT)[address] [place] [address] UA Nitrite Negative Normal NEGATIVE [facility] Comment on above: Performed By: #### 1 [id number], [id number] ####[facility] (DEFAULT)[address] [place] [address] UA pH 7.0 5-8 [facility] Comment on above: Performed By: #### 1 [id number], [id number] ####[facility] (DEFAULT)[address] [place] [address] UA Protein Negative Normal NEGATIVE [facility] Comment on above: Performed By: #### 1 [id number], [id number] ####[facility] (DEFAULT)[address] [place] [address] UA Spec Grav <=1.005 1.001-1.035 [facility] Comment on above: Performed By: #### 1 [id number], [id number] ####[facility] (DEFAULT)[address] [place] [address] UA Urobilinogen 0.2 mg/dL Normal 0.2-1.0 [facility] Comment on above: Performed By: #### 1 [id number], [id number] ####[facility] (DEFAULT)[address] [place] [address] Urine Source Clean Catch Normal [facility] Comment on above: Performed By: #### 1 [id number], [id number] ####[facility] (DEFAULT)[address] [place] [address] US 1st Trimesteron 07-29-2019 US 1st Trimester [...] MD 07/29/19 11:05 a Technologist: GEORGE ROBLEDO [facility] US Transvaginalon 07-29-2019 US Transvaginal EXAM: [...] 07/29/19 11:05 a Technologist: GEORGE ROBLEDO Normal [facility] hCG Quantitativeon 9 hCG Quantitative 08075.0 mIU/mL High 0.0-0.6 [facility] Comment on above: Result Comment: Resu lt confirmed by dilution Post-Menopausal Reference Range is: 0.1-11.6 mIU/mL Performed By: #### 7 [id number], [id number], [id number], [id number], [id number], [id number], [id number], [id number], [id number] ####[facility] (DEFAULT)[address] [place] [address] Vital Signs Date Time Vital Sign Value Performing Clinician Twila mills 12-03-2023 15:34-0500 Body mass index (BMI) [Ratio] 20.4 kg/m2 Cielo Kisha DO Work Phone: [facility] 12-03-2023 15:34-0500 Body weight 45.81 kg Cielo Kisha DO Work Phone: [facility] 12-03-2023 15:34-0500 Diastolic blood pressure 60 mm[Hg] Cielo Kisha DO Work Phone: [facility] 12-03-2023 15:34-0500 Systolic blood pressure 100 mm[Hg] Cielo Kisha DO Work Phone: [facility] Healthcare Encounters Encounter Date Encounter Type Care Provider Facility Start: 01-27-2024 End: 01-27-2024 ambulatory CIELO BEARD Not Available Start: 01-09-2024 End: 01-09-2024 ambulatory DRE JULIET Not Available Start: 12-25-2023 End: 12-25-2023 ambulatory CIELO BEARD Not Available Start: 12-03-2023 End: 12-03-2023 ambulatory CIELO BEARD Not Available Start: 12-03-2023 End: 12-03-2023 flow sheet Cielo Beard DO Work Phone: [facility] Comment on above: Second trimester pre gnancy; Mood changes Start: 11-30-2023 End: 11-30-2023 ambulatory LEONEL M [facility] Start: 11-25-2023 End: 11-25-2023 ambulatory DRE CHUNG Not Available Start: 11-04-2023 End: 11-04-2023 ambulatory CIELO BEARD Not Available Start: 05-13-2021 End: 05-14-[address] CIELO BAERD Facility:[facility] Start: 05-03-2021 End: 05-03-[address] CIELO BEARD Facility:[facility] Procedures Date Procedure Procedure Detail Performing Clinician Start: 12-03-2023 Urnls dip stick/tabl et rgnt non-auto w/o micrscp Cielo Beard DO Work Phone: Plan of Treatment Date Care Activity Detail Author Start: 12-25-2023 End: 12-25-2023 Patient encounter procedure 12/25/2023 3:40 PM EST Routine [facility] [address] [place] [address] Cielo Beard, DO [address] [place] [address] [facility] Payers Date Payer Category Payer Medicaid [facility] MEDICAID [facility] MEDICAID [id number] 2023-Present [address] [place] [address] [id number] 2021 Unknown [id number] 2021 Unknown BCBS BCBS xxxxxx [id number] 2021-Present [phone] [address] [place] [address] [id number] 1995 Unknown [id number] [id number] 1995 Unknown [id number] [id number] 1995 Unknown [id number] [id number] 1995 Unknown [id number] [id number] 1995 Unknown [id number] [id number] 1995 Unknown [id number] [id number] 1995 Unknown [id number] [id number] 1997 Unknown [id number] [id number] 1997 Unknown [id number] [id number] 1959 Unknown [id number] Social History Date Type Detail Facility Start[facility] History of tobacco use Cigarette Smoker [facility] Start: 10-09-2023 Cigarettes smoked cu rrent (pack per day) - Reported 1 [facility] Start: 12-03-2023 Alcohol intake Lifetime non-d sylvain (finding) [facility] Start: 10-09-2023 Tobacco use panel [facility] Start: 10-09-2023 Alcohol Comment caffeine: more than 4 cups per day [facility] Start: 06-20-2023 [facility] Start: 1995 Sex Assigned At Female [facility] Start: 09-23-2023 Gender identity Identifies as female gender (finding) [facility] Start: 09-23-2023 Sexual orientation Heterosexual (rigoberto bustamante) [facility] Goals Date Patient Goal Desired Activity /State Personal health goal History of Present illness Narrative 12-03-2023 Sally Babin, [employer] - 12/03/2023 3:30 PM EST Note Date & Type Note Facility 12-03-2023 History of Presen t illness Narrative Reason for Appointment: Patient ID: Mellisa Saunders is a 28 y.o. female who presents for Problem Patient presents today for Return OB appointment. Current Medications: has a current medication list which includes the following prescription(s): denta 5000 plus and fluticasone. Medical History: Active Ambulatory Problems Diagnosis Date Noted No Active Ambulatory Problems Resolved Ambulatory Problems Diagnosis Date Noted No Resolved Ambulatory Problems Past Medical History: Diagnosis Date Anxiety and depression (CMS/HCC) BMI 20.0-20.9, adult Chronic sinusitis Depression (CMS/HCC) Heavy tobacco smoker >10 cigarettes per day Left cervical lymphadenopathy Family History Problem Relation Name Age of Onset Other (Blood Clots) Mother Hypertension Mother Diabetes Mother Diabetes Maternal Grandmother Diabetes Other Social History Tobacco Use Smoking status: Every Day Packs/day: 1 Types: Cigarettes Smokeless tobacco: Not on file Substance Use Topics Alcohol use: Never Comment: caffeine: more than 4 cups per day Drug use: Not on file History reviewed. No pertinent surgical history. No Known Allergies Review of Systems: Review of Systems Constitutional: Positive for fatigue. HENT: Negative. Eyes: Negative. Respiratory: Negative. Cardiovascular: Negative. Gastrointestinal: Negative. Genitourinary: Negative. Musculoskeletal: Negative. Skin: Negative. Neurological: Negative. Psychiatric/Behavioral: Positive for agitation and dysphoric mood. The patient is nervous/anxious. All other systems reviewed and are negative. Hematological: Negative. Endocrine: Negative. Allergic/Immunologic: Negative. Objective Physical Exam Constitutional: Appearance: Normal appearance. She is well-developed. Cardiovascular: Rate and Rhythm: Normal rate and regular rhythm. Pulmonary: Effort: Pulmonary effort is normal. Breath sounds: Normal breath sounds. Abdominal: General: Bowel sounds are normal. There is no distension. Palpations: Abdomen is soft. Tenderness: There is no abdominal tenderness. There is no guarding or rebound. Musculoskeletal: General: No swelling. Normal range of motion. Right lower leg: No edema. Left lower leg: No edema. Neurological: Mental Status: She is alert and oriented to person, place, and time. Skin: General: Skin is warm and dry. Psychiatric: Mood and Affect: Mood normal. Behavior: Behavior normal. Vitals and nursing note reviewed. Exam conducted with a expressive therapist present. Vitals: Estimated body mass index is 20.4 kg/m as calculated from the following: Height as of 06/14/21: 4' 11 . Weight as of this encounter: 101 lb. BP: 100/60 No LMP recorded. Patient is . Assessment/Plan Encounter Diagnosis Name Primary? Second trimester Patient presents today for a routine obstetrics appointment. Patient is currently 25w5d . Patient states she is doing well but has complaints of being tired due to current . Pt states she has mood changes- has a little anxiety and depressed mood. Pt denies suicidal and homicidal ideations. Rx for Effexor faxed to pharmacy. Patient has verbalizes frequent movement. labor precautions was discussed. Follow Up: Patient is to return to office in 2 week for routine OB appointment. Documented by Sally Babin LPN on behalf of: Cielo Beard DO documented in this encounter [facility] Evaluation note Note Date & Type Note Facility Evaluation note Diagnosis Second trimester state, incidental Mood changes Unspecified episodic mood disorder documented in this encounter [facility] Summary Purpose Family History No Family History Records FoundNo Family History Records FoundNo Family History Records FoundNo Family History Records Found Advance Directives No Advanced Directives Records FoundNo Advanced Directives Records FoundNo Advanced Directives Records FoundNo Advanced Directives Records Found Additional Source Comments INFORMATION SOURCE (unrecogn ized section and content) DATE CREATED AUTHOR 06/26/2020 [facility] DATE CREATED AUTHOR AUTHOR'S ORGANIZ ATION 02/28/2022 [facility] DATE CREATED AUTHOR AUTHOR'S ORGANIZ ATION 12/02/2023 [facility] DATE CREATED AUTHOR AUTHOR'S ORGANIZ ATION 01/28/2024 [facility] EPIC Reason for Visit (unrecogniz ed section and content) Reason Comments Problem FOR RECORDS PERTAINING TO PATIENTS WHO ARE [...] BE BASED ON THE PRIMARY CLINICAL RECORDS. [facility]. provides no warranty or guarantee of the accuracy or completeness of information in this document.
--- NOTE | 2024-01-29 08:23 | US_ITS ---
[address] [address] Patient Name: HARRIET TOMPKINS MRN: [id number] date: 1995 Sex: F Assigned Patient Location: [facility] Current Patient Location: [facility] Accession/Order Number: [id number] Exam Date: 01/29/2024 08:25 Report Date: 01/29/2024 08:54 At the request of: CIELO GIBBONS Procedure: US OB growth EXAMINATION: US OB growth HISTORY: LGA COMPARISON: Ultrasound OB anatomy 11/09/2023 FINDINGS: Heart Rate: 141.0 bpm Number: 1.0 Position: CEPHALIC Amniotic Fluid Volume: 12.0 cm Maximum Vertical Pocket: 4.7 cm BIOMETRY: BPD: 8.5 cm cm; 34 weeks 2 days; 59% HC: 30.3 cmcm; 33 weeks 4 days; 12% AC: 30.5 cm cm; 34 weeks 3 days; 71% FL: 6.5 cm cm; 33 weeks 3 days; 29% % EFW: 2340.8 grams; 49% FL/AC: 21.3 FL/BPD: 76.2 HC/AC: 1.0 GESTATIONAL AGE: Age by EDC: 33 weeks 6 days DOROTHY by EDC: 03/12/2024 Age by US: 34 weeks 0 days DOROTHY by US: 03/11/2024 US/US OB growth IMPRESSION: 1. Single live intrauterine with growth detailed above. Electronically authenticated by: JASON VITAL Date: 01/29/2024 08:54
== END 2024-01-29 08:21 | disposition home or self-care (01) ==
LOC: NOMS 08:20
PROVIDERS: Visit Provider Obstetrics & Gynecology
DX: O36.60X0 Maternal care for excessive fetal growth, unspecified trimester, not applicable or unspecified (principal); Z3A.33 33 weeks gestation of pregnancy
CPT/HCPCS: 76816

== ENCOUNTER 2024-03-03 15:07 | Inpatient (IN) | payer BC, OTHER, SELFPAY ==
[2024-03-03 15:38] VITALS: BP 109/63; PULSE 102
[2024-03-03] MEDS: 0.9 % SODIUM CHLORIDE 1,000 ML 125 ML IV (15:40)
[2024-03-03] MEDS: AMPICILLIN SODIUM 2,000 MG in 0.9 % SODIUM CHLORIDE 100 ML 200 MG IV (15:41)
[2024-03-03 15:57] VITALS: BP 109/63; PULSE 99
[2024-03-03 16:02] VITALS: TEMP 36.1
[2024-03-03 16:04] LABS: Hematocrit 30.9 % (36.0-48.0); Hemoglobin 9.9 g/dL (12.0-16.0); Mean Corpuscular Volume 87.3 fL (81.0-99.0); Mean Platelet Volume 11.9 fL (9.5-13.5); Platelet Count 344 10^3/uL (150-450); Red Blood Count 3.54 10^6/uL (4.20-5.40); Red Cell Distribution Width 12.7 % (11.0-15.0); White Blood Count 10.8 10^3/uL (4.0-11.0)
[2024-03-03 16:26] LABS: Amphetamine Screen Urine NEGATIVE (NEGATIVE); Barbiturates Screen Urine NEGATIVE (NEGATIVE); Benzodiazepines Screen Urine NEGATIVE (NEGATIVE); Buprenorphine Screen Urine NEGATIVE (NEGATIVE); Cannabinoid Screen Urine NEGATIVE (NEGATIVE); Cocaine Screen Urine NEGATIVE (NEGATIVE); Methadone Screen Urine NEGATIVE (NEGATIVE); Methamphetamines Screen Urine NEGATIVE (NEGATIVE); Opiate Screen Urine NEGATIVE (NEGATIVE); Oxycodone Screen Urine NEGATIVE (NEGATIVE); Phencyclidine Screen Urine NEGATIVE (NEGATIVE); Tricyclic Antidepressant Urine NEGATIVE (NEGATIVE)
[2024-03-03 18:33] VITALS: BP 114/69; PULSE 82
[2024-03-03] MEDS: AMPICILLIN SODIUM 1,000 MG in 0.9 % SODIUM CHLORIDE 50 ML 100 MG IV ×2 (18:49→23:45)
[2024-03-03 18:50] VITALS: TEMP 36.3
[2024-03-03] MEDS: OXYTOCIN/0.9 % SODIUM CHLORIDE 10 UNITS/500 ML PLAST..BAG 6 UNIT IV (20:49)
[2024-03-04] VITALS (13 sets, daily range): BP systolic 110–131; BP diastolic 61–77; PULSE 70–88; TEMP 36.1–36.2
--- NOTE | 2024-03-04 01:31 | PM.OBPRCVD ---
Procedure Intrapartal events: None Induction method: per pitocin protocol Delivery augmentation: pitocin Delivery monitor: external FHT and external uterine Route of delivery: Episiotomy Description: none L&D Laceration Description: none Estimated blood loss (mL): 200 Anesthesia type: None Disposition: floor Delivery date: 03/04/24 Gender: male presentation: vertex Placental delivery description: Spontaneous cord description: 3 Vessels and Nuchal Cord (times 1)
[2024-03-04] MEDS: OXYTOCIN/0.9 % SODIUM CHLORIDE 20 UNITS/1,000 ML PLAST..BAG 125 UNIT IV (02:15)
[2024-03-04] MEDS: IBUPROFEN 600 MG TABLET PO ×2 (03:48→12:24)
[2024-03-04] MEDS: BENZOCAINE/MENTHOL 85 GRAM SPRAY BOTTLE 1 APPLIC TOPICAL (03:48)
[2024-03-04] MEDS: GLYCERIN/WITCH HAZEL PADS 1 PAD TOPICAL (03:48)
--- NOTE | 2024-03-05 00:13 | P.OBPN_ITS ---
OB - PN: Subj Subjective Patient comments: no complaints and pain well controlled Point Clear status: doing well Exam Constitutional Vital Signs, click to edit/add: Last Vital Signs Temp 97.2 F L 03/04/24 15:58 Pulse 88 03/04/24 15:55 Resp 18 03/04/24 15:55 BP 126/62 03/04/24 15:55 O2 Del Method Room Air 03/04/24 15:55 Documenting provider has reviewed patient's vital signs: yes Common normals: no apparent distress Respiratory Common normals: clear to auscultation bilaterally Cardio Common normals: regular rate and regular rhythm GI Common normals: Normal to inspection, nondistended, normoactive bowel sounds present Extremity Common normals: no calf tenderness OB - PN: A/P Plan - Vaginal Delivery day: 1 Plan: routine care, discharge home and follow up 6 weeks Time Spent with Patient Time: Total time spent is greater than 50% in coordination of care (as documented) at patient's floor/unit and/or counseling patient: Total time spent with greater than 50% in coordination of care (as documented) at patient's floor/unit and/or counseling patient: less than 15 minutes
[2024-03-05 00:43] VITALS: BP 113/67; PULSE 87; TEMP 36.1
[2024-03-05] MEDS: IBUPROFEN 600 MG TABLET PO ×2 (00:47→08:53)
[2024-03-05 05:53] LABS: Basophils Absolute Auto 0.1 10^3/uL (0.0-0.1); Basophils Percent Auto 0.6 % (0.2-2.0); Eosinophils Absolute Auto 0.3 10^3/uL (0.0-0.7); Eosinophils Percent Auto 2.2 % (0.9-7.0); Hematocrit 29.7 % (36.0-48.0); Hemoglobin 9.4 g/dL (12.0-16.0); Immature Granulocytes Abs Auto 0.28 10^3/uL (0.00-0.03); Lymphocytes Absolute Auto 2.7 10^3/uL (1.2-3.8); Lymphocytes Percent Auto 19.4 % (20.5-60.0); Mean Corpuscular HGB Conc 31.6 g/dL (29.9-35.2); Mean Corpuscular Hemoglobin 27.7 pg (26.7-34.0); Mean Corpuscular Volume 87.6 fL (81.0-99.0); Mean Platelet Volume 11.3 fL (9.5-13.5); Monocytes Percent Auto 7.3 % (1.7-12.0); Neutrophils Absolute Auto 9.6 10^3/uL (1.4-6.5); Neutrophils Percent Auto 68.5 % (43.0-75.0); Platelet Count 316 10^3/uL (150-450); Red Blood Count 3.39 10^6/uL (4.20-5.40); Red Cell Distribution Width 12.8 % (11.0-15.0); White Blood Count 14.1 10^3/uL (4.0-11.0)
[2024-03-05 08:55] VITALS: BP 114/70; PULSE 79; TEMP 36.3
[2024-03-05 08:58] VITALS: BP 114/70; PULSE 79
== END 2024-03-05 13:15 | disposition home or self-care (01) | DRG 807 ==
PROVIDERS: Admitting Provider Obstetrics & Gynecology; Visit Provider Obstetrics & Gynecology
DX: O69.81X0 Labor and delivery complicated by cord around neck, without compression, not applicable or unspecified (principal); Z37.0 Single live birth; O99.334 Smoking (tobacco) complicating childbirth; F17.210 Nicotine dependence, cigarettes, uncomplicated; Z3A.38 38 weeks gestation of pregnancy
CPT/HCPCS: 36415; 59050; 59410; 80307; 85025; 85027; 86850; 86900; 86901; 96365; 96375; 96376

== ENCOUNTER 2024-03-03 21:27 | Outpatient (REF) | payer BC, OTHER, SELFPAY ==
--- OUTSIDE RECORDS SUMMARY | 2024-03-03 21:33 | XMS_ITS | CCD ---
Author Organization [facility] Care Team Providers Care Signalman Name Role Phone KISHA, DR BUCK Admitting Unavailable KISHA, DR BUCK Attending Unavailable REQUEST, NONE LISTED Primary Care Unavaila an BEARD, DR BUCK Consulting Unavailable KISHA, DR BUCK Admitting Unavailable KISHA, DR BUCK Attending Unavailable REQUEST, DR HONG LISTED Primary Care Unavaila an KERR, DR JAXSON Fan Consulting Unavailable KISHA, DR BUCK Consulting Unavailable LEONEL BELL Admitting Unavailable LEONEL BELL Attending Unavailable SERVICES, [facility] Primary Care Unava ilable Unavailable Primary [...] UA Negative Negative - 4(70) +++ mg/dL [facility] Blood, UA Negative Negative - 50 Mihir/mcL [facility] Clarity, UA Clear [facility] Color, UA Yellow [facility] Healthcar e Glucose, UA Negative Negative - 1999(110) ++++ mg/dL [facility] Interpretation and review of laboratory results Normal [facility] Ketones, UA Negative Negative - 160(16) ++++ mg/dL [facility] Leukocytes, UA Negative Negative - 500+++ Mila/mcL [facility] Nitrite, UA Negative Negative - Positive [facility] Healthcare pH, UA 7.0 5 - 9 [facility] Healthcar e Protein, UA Negative Negative - 1999(20) ++++ mg/dL [facility] Spec Grav, UA 1.025 1 - 1.03 [facility] Urobilinogen, UA 1.0 0.2 - 12 mg/dL [facility] Healthcar e CHLAMYDIA/GC BY PCRon 2023 CHLAMYDIA/GC [...] are dependent on adequate specimen collection. Normal [facility] Comment on above: Performed By: #### C GS #### [facility] ([id number]) [address] [place] [address], [address] [place] [address] COMPLETE BLOOD COUNTon 11-30 Erythrocyte distribution width (RBC) [Ratio] 13.0 % Normal 11.5-15.0 [facility] Comment on above: Performed By: #### C BC, CMP #### [facility] ([id number]) [address] [place] [address] 35247 Hematocrit (Bld) [Volume fraction] 35.9 % Normal 35-47 [facility] Comment on above: Performed By: #### C BC, CMP #### [facility] ([id number]) [address] [place] [address] 12074 Hemoglobin (Bld) [Mass/Vol] 12.3 g/dL Normal 11.7-15.5 [facility] Comment on above: Performed By: #### C BC, CMP #### [facility] ([id number]) [address] [place] [address] 62102 MCH (RBC) [Entitic mass] 31.4 pg Normal 27-34 [facility] Comment on above: Performed By: #### C BC, CMP #### [facility] ([id number]) [address] [place] [address] 66711 MCHC (RBC) [Mass/Vol] 34.3 g/dL Normal 32-36 [facility] Comment on above: Performed By: #### C BC, CMP #### [facility] ([id number]) [address] [place] [address] 47942 MCV (RBC) [Entitic vol] 92 fL Normal 80-100 [facility] Comment on above: Performed By: #### C BC, CMP #### [facility] ([id number]) [address] [place] [address] 00283 Platelet mean volume (Bld) [Entitic vol] 8.5 fL Normal 7-12 [facility] Comment on above: Performed By: #### C BC, CMP #### [facility] ([id number]) [address] [place] [address] 99496 Platelets (Bld) [#/Vol] 327 10*3/uL Normal 150-450 [facility] Comment on above: Performed By: #### C BC, CMP #### [facility] ([id number]) [address] [place] [address] 22819 RBC COUNT 3.92 X10E12/L Normal 3.80-5.20 [facility] Comment on above: Performed By: #### C BC, CMP #### [facility] ([id number]) [address] [place] [address] 40940 WBC (Bld) [#/Vol] 12.2 10*3/uL High 4.0-11.0 [facility] Comment on above: Performed By: #### C BC, CMP #### [facility] ([id number]) [address] [place] [address] 34047 COMPREHENSIVE METABOLIC PANE [place] 11-30-2023 Albumin [Mass/Vol] 4.0 g/dL Normal 3.2-5.3 [facility] Comment on above: Performed By: #### C BC, CMP #### [facility] ([id number]) [address] [place] [address] 75652 ALP [Catalytic activity/Vol] 63 U/L Normal 39-130 [facility] Comment on above: Performed By: #### C BC, CMP #### [facility] ([id number]) [address] [place] [address] 06236 ALT [Catalytic activity/Vol] 12 U/L Normal 0-31 [facility] Comment on above: Performed By: #### C BC, CMP #### [facility] ([id number]) [address] [place] [address] 94593 Anion gap [Moles/Vol] 8 mmol/L Normal 5-15 [facility] Comment on above: Performed By: #### C BC, CMP #### [facility] ([id number]) [address] [place] [address] 52087 AST [Catalytic activity/Vol] 18 U/L Normal 0-41 [facility] Comment on above: Performed By: #### C BC, CMP #### [facility] ([id number]) [address] [place] [address] 06706 Bilirubin [Mass/Vol] 0.2 mg/dL Low 0.3-1.2 [facility] Comment on above: Performed By: #### C BC, CMP #### [facility] ([id number]) [address] [place] [address] 28836 Calcium [Mass/Vol] 9.2 mg/dL Normal 8.5-10.5 [facility] Comment on above: Performed By: #### C BC, CMP #### [facility] ([id number]) [address] [place] [address] 11033 Chloride [Moles/Vol] 104 mmol/L Normal 98-109 [facility] Comment on above: Performed By: #### C KASEY, CMP #### [facility] ([id number]) [address] [place] [address] 07713 CO2 [Moles/Vol] 24 mmol/L Normal 22-32 [facility] Comment on above: Performed By: #### C BC, CMP #### [facility] ([id number]) [address] [place] [address] 48483 Creatinine [Mass/Vol] 0.47 mg/dL Normal 0.40-1.00 [facility] Comment on above: Result Comment: METH OD TRACEABLE TO IDMS STANDARD Performed By: #### C KASEY, CMP #### [facility] ([id number]) [address] [place] [address] 08002 eGFR (CKD-EPI) NON-RACE DEPENDENT >90 Normal >59 [facility] Comment on above: Result Comment: Reported eGFR is based on the CKD-EPI 2020 equation that does not use a race coefficient. Performed By: #### C KASEY, CMP #### [facility] ([id number]) [address] [place] [address] 66145 Glucose [Mass/Vol] 106 mg/dL High 65-99 [facility] Comment on above: Performed By: #### C KASEY, CMP #### [facility] ([id number]) [address] [place] [address] 65634 Potassium [Moles/Vol] 3.3 mmol/L Low 3.5-5.0 [facility] Comment on above: Performed By: #### C BC, CMP #### [facility] ([id number]) [address] [place] [address] 08543 Protein [Mass/Vol] 7.2 g/dL Normal 6.0-8.0 [facility] Comment on above: Performed By: #### C BC, CMP #### [facility] ([id number]) [address] [place] [address] 30137 Sodium [Moles/Vol] 136 mmol/L Normal 134-146 [facility] Comment on above: Performed By: #### C BC, CMP #### [facility] ([id number]) [address] [place] [address] 87948 Urea nitrogen [Mass/Vol] 5 mg/dL Normal 5-23 [facility] Comment on above: Performed By: #### C BC, CMP #### [facility] ([id number]) [address] [place] [address] 99472 DRUG SCREEN, URINEon 024 AMPHETAMINE/METHAMP Negative Normal NEG [facility] Comment on above: Result Comment: AMPH /METH screening cut off = 1000 ng/mL Performed By: #### D BILLY #### [facility] ([id number]) [address] [place] [address] 56923 BARBITURATES Negative Normal NEG [facility] Comment on above: Result Comment: Lina iturates screening cut off value = 200 ng/mL Performed By: #### D BILLY #### [facility] ([id number]) [address] [place] [address] 69575 BENZODIAZEPINES Negative Normal NEG [facility] Comment on above: Result Comment: Jose odiazepines screening cut off value = 200 ng/mL Performed By: #### D BILLY #### [facility] ([id number]) [address] [place] [address] 18348 CANNABINOIDS Negative Normal NEG [facility] Comment on above: Result Comment: Jolie abinoids/THC screening cut off value = 50 ng/mL Performed By: #### D BILLY #### [facility] ([id number]) [address] [place] [address] 51309 COCAINE METABOLITE Negative Normal NEG [facility] Comment on above: Result Comment: Coca ine screening cut off value = 300 ng/mL Performed By: #### D BILLY #### [facility] ([id number]) [address] [place] [address] 04675 ECSTASY Negative Normal NEG [facility] Comment on above: Result Comment: Ecst asy screening cut off value = 500 ng/mL This report is intended for use in clinical monitoring or management of patients. Performed By: #### D BILLY #### [facility] ([id number]) [address] [place] [address] [place] [address] METHADONE Negative Normal NEG [facility] Comment on above: Result Comment: Meth adone screening cut off value = 300 ng/mL. Performed By: #### D BILLY #### [facility] ([id number]) [address] [place] [address] 60986 OPIATES Negative Normal NEG [facility] Comment on above: Result Comment: Opia nina screening cut off value = 300 ng/mL NOTE: This test is used for the detection of codeine, hydrocodone (>1000 ng/mL), morphine and hydromorphone (>900 ng/mL) in urine. Performed By: #### D BILLY #### [facility] ([id number]) [address] [place] [address] 87135 OXYCODONE Negative Normal NEG [facility] Comment on above: Result Comment: Oxyc odone screening cut off value = 300 ng/mL NOTE: This test is used for the detection of oxycodone and oxymorphone in urine. Performed By: #### D BILLY #### [facility] ([id number]) [address] [place] [address] 00728 PHENCYCLIDINE Negative Normal NEG [facility] Comment on above: Result Comment: Phen cyclidine screening cut off value = 25 ng/mL Performed By: #### D BILLY #### [facility] ([id number]) [address] [place] [address] [place] [address] URINALYSISon 11-30-2023 Bilirubin Ql (U) Negative Normal NEG [facility] Comment on above: Performed By: #### U A #### [facility] ([id number]) [address] [place] [address] [place] [address] BLOOD/HGB Negative Normal NEG [facility] Comment on above: Performed By: #### U A #### [facility] ([id number]) [address] [place] [address] [place] [address] Color (U) YELLOW Normal YELLOW [facility] Comment on above: Performed By: #### U A #### [facility] ([id number]) [address] [place] [address] [place] [address] Glucose Ql (U) Negative Normal NEG [facility] Comment on above: Performed By: #### U A #### [facility] ([id number]) [address] [place] [address] [place] [address] Ketones Ql (U) Negative Normal NEG [facility] Comment on above: Performed By: #### U A #### [facility] ([id number]) [address] [place] [address] [place] [address] Leukocyte esterase Test strip Ql (U) Negative Normal NEG [facility] Comment on above: Performed By: #### U A #### [facility] ([id number]) [address] [place] [address] [place] [address] Nitrite Ql (U) Negative Normal NEG [facility] Comment on above: Performed By: #### U A #### [facility] ([id number]) [address] [place] [address] [place] [address] pH (U) 6.5 [pH] Normal 5.0-8.5 [facility] Comment on above: Performed By: #### U A #### [facility] ([id number]) [address] [place] [address] 48003 Protein Ql (U) Negative Normal NEG [facility] Comment on above: Performed By: #### U A #### [facility] ([id number]) [address] [place] [address] 32498 Specific gravity (U) [Rel density] <1.005 Normal 1.003-1.035 [facility] Comment on above: Performed By: #### U A #### [facility] ([id number]) [address] [place] [address] 51529 TURBIDITY CLEAR Normal CLEAR [facility] Comment on above: Performed By: #### U A #### [facility] ([id number]) [address] [place] [address] 70232 Urobilinogen Qn (U) 0.2 {Luiz'U}/dL Normal <1.1 [facility] Comment on above: Performed By: #### U A #### [facility] ([id number]) [address] [place] [address] 69162 URINE CULTUREon 11-30-2023 Bacteria identified Cx Nom (U) CULTURE RESULTS <10,000 ORGANISMS/ML NORMAL URO GENITAL ANTWON Normal [facility] Comment on above: Performed By: #### 6 30-4 #### [facility] ([id number]) [address] [place] [address], [address] [place] [address] VAGINITIS PANEL PCRon 2023 VAGINITIS PANEL PCR [...] clinical presentation to determine patient diagnosis. Normal [facility] Comment on above: Performed By: #### V PPCR #### [facility] ([id number]) [address] [facility], [address] [place] [address] US THYROIDon 05-15-2021 US THYROID EXAMINATION: US [...] JAXSON KERR Date: 2021-05-15 07:09 Normal [facility] CBC AUTO DIFFon 05-13-2021 BASO # 0.1 103/ul Normal 0.0-0.1 [facility] Comment on above: Performed By: #### C BC #### [facility] [address] [place], [place] [address] Ellen Sally Basophils/100 WBC (Bld) 0.8 % Normal 0.2-2.0 [facility] Comment on above: Performed By: #### C BC #### [facility] [address] [place], [place] [address] Ellen Sally EO # 0.3 103/ul Normal 0.0-0.7 [facility] Comment on above: Performed By: #### C BC #### [facility] [address] [place], [place] [address] Ellen Sally Eosinophils/100 WBC (Bld) 3.6 % Normal 0.9-7.0 [facility] Comment on above: Performed By: #### C BC #### [facility] [address] [place] [address] Ellen Sally Erythrocyte distribution width (RBC) [Ratio] 12.4 % Normal 11.0-15.0 [facility] Comment on above: Performed By: #### C BC #### [facility] [address] [place] [address] Ellen Sally Hematocrit (Bld) [Volume fraction] 42.3 % Normal 36.0-48.0 [facility] Comment on above: Performed By: #### C BC #### [facility] [address] [place] [address] Ellen Sally Hemoglobin (Bld) [Mass/Vol] 14.4 g/dL Normal 12.0-16.0 [facility] Comment on above: Performed By: #### C BC #### [facility] [address] [place] [address] Ellen Sally IG # 0.01 10e3/ul Normal 0.00-0.03 [facility] Comment on above: Performed By: #### C BC #### [facility] [address] [place] [address] Ellen Sally IG % 0.1 % Normal 0.0-0.5 [facility] Comment on above: Performed By: #### C BC #### [facility] [address] [place] [address] Ellen Sally LYMPH # 2.4 103/ul Normal 1.2-3.8 [facility] Comment on above: Performed By: #### C BC #### [facility] [address] [place] [address] Ellen Sally Lymphocytes/100 WBC (Bld) 30.1 % Normal 20.5-60.0 [facility] Comment on above: Performed By: #### C BC #### [facility] [address] [place], [place] [id number] Ellen Sally MANUAL DIFF REQ NO Normal [facility] Comment on above: Performed By: #### C BC #### [facility] [address] [place], [place] [id number] Ellen Sally MCH (RBC) [Entitic mass] 30.4 pg Normal 26.7-34.0 [facility] Comment on above: Performed By: #### C BC #### [facility] [address] [place] [address] Ellen Sally MCHC (RBC) [Mass/Vol] 34.0 g/dL Normal 29.9-35.2 [facility] Comment on above: Performed By: #### C BC #### [facility] [address] [place] [address] Ellen Sally MCV (RBC) [Entitic vol] 89.4 fL Normal 81.0-99.0 [facility] Comment on above: Performed By: #### C BC #### [facility] [address] [place], [place] [address] Ellen Sally MONO # 0.4 103/ul Normal 0.3-0.8 [facility] Comment on above: Performed By: #### C BC #### [facility] [address] [place] [address] Ellen Sally Monocytes/100 WBC (Bld) 5.4 % Normal 1.7-12.0 [facility] Comment on above: Performed By: #### C BC #### [facility] [address] [place] [address] Ellen Sally NEUT # 4.7 103/ul Normal 1.4-6.5 [facility] Comment on above: Performed By: #### C BC #### [facility] [address] [place], [place] [id number] Ellen Sally Neutrophils/100 WBC (Bld) 60.0 % Normal 43.0-75.0 [facility] Comment on above: Performed By: #### C BC #### [facility] [address] [place] [id number] Ellenaixa Zavala Platelet mean volume (Bld) [Entitic vol] 9.4 fL Critically low 9.5-13.5 [facility] Comment on above: Performed By: #### C BC #### [facility] [address] [place] [address] Ellenaixa Zavala PLT 449 103/ul Normal 150-450 [facility] Comment on above: Performed By: #### C BC #### [facility] [address] [place] [address] Ellen Sally RBC 4.73 106/ul Normal 4.20-5.40 [facility] Comment on above: Performed By: #### C BC #### [facility] [address] [place] [address] Ellenaixa Zavala WBC 7.8 103/ul Normal 4.0-11.0 [facility] Comment on above: Performed By: #### C BC #### [facility] [address] [place] [address] Ellenaixa Zavala PAP ACOG PANEL 2: 21 to 31on 05-08-2021 . . Normal [facility] Comment on above: Performed By: #### 4 [id number] #### [facility] [address] [place], [place] [id number] Ellen Zavala Age Gdln ACOG Testing 21-29 Normal [facility] Comment on above: Performed By: #### 4 [id number] #### [facility] [address] [place], [place] [id number] Ellen Sally DIAGNOSIS: Comment Normal [facility] Comment on above: Result Comment: NEGA TIVE FOR INTRAEPITHELIAL LESION OR MALIGNANCY. Performed By: #### 4 [id number] #### [facility] [address] [place], [place] [id number] Ellen Zavala Methodology: Comment Normal [facility] Comment on above: Result Comment: This liquid based ThinPrep(R) pap test was screened with the use of an image guided system. Performed By: #### 4 [id number] #### [facility] [address] [place], [place] [id number] Ellen Zavala Note: Comment [facility] Comment on above: Result Comment: The Pap smear is a screening test designed to aid in the detection of premalignant and malignant conditions of the uterine cervix. It is not a diagnostic procedure and should not be used as the sole means of detecting cervical cancer. Both false-positive and false-negative reports do occur. . Performed By: #### 4 [id number] #### [facility] [address] [place] [address] Ellen Zavala Performed by: Comment Normal [facility] Comment on above: Result Comment: [place] Guidry, Shuttle Veneering Supervisor (ASCP) Performed By: #### 4 [id number] #### [facility] [address] [place] [address] Ellen Sally Reflex Criteria: Comment [facility] Comment on above: Result Comment: The HPV DNA reflex criteria were not met with this specimen result therefore, no HPV testing was performed. . Performed By: #### 4 [id number] #### [facility] [address] [place] [address] Ellen Zavala Specimen adequacy: Comment Normal [facility] Comment on above: Result Comment: Sati sfactory for evaluation. Endocervical and/or squamous metaplastic cells (endocervical component) are present. Performed By: #### 4 [id number] #### [facility] [address] [place] [address] Ellen Zavala Coding Summaryon 06-25-2020 Coding Summary CODING DATE: 06/25/2020 [facility] STATUS: PAYOR: Workers Compensation ADMIT DX: REASON [...] Manuel Ayala Date Saved: 06/25/2020 11:13 am [facility] Coding Summary CODING DATE: 06/25/2020 [facility] STATUS: Home PAYOR: Workers Compensation ADMIT DX: [...] Manuel Ayala Date Saved: 06/25/2020 11:10 am [facility] Consent Formson 06-24-2020 Consent Forms [id number] [facility] ED Clinical Summaryon 2019 ED Clinical Summary [facility] - Emergency Department [address] [place] [address] [id number] ED Clinical Summary PERSON INFORMATION Name: MELLISA SAUNDERS Age: 24 Years Sex: FEMALE : 1995 MRN: Acct#: Visit Reason: Finger laceration; RIGHT FINGER LACERATION Arrival: 06/24/2020 08:39:04 Discharge: 06/24/2020 09:50:00 LOS: 000 01:11 Check In: 06/24/2020 08:39:04 Checkout:06/24/2020 09:50:00 Address: [address] [place] [address] PCP: Provider, None PROVIDER INFORMATION Provider Role [...] noted. Impression and Plan Diagnosis Finger laceration ([id number] S61.219A, Discharge, Medical) Plan Condition: Improved. Disposition: Discharged: Time 06/24/2020 09:29:00, to home. Patient was given the following educational materials: Laceration Care, Adult, Zagg-aq-Ccgo, Laceration Care, Adult, Jace-ai-Bico. Follow up with: None Provider Within 3 to 5 days; Return to Emergency Department Within 3 to 5 days. Counseled: Patient, Regarding diagnosis, Regarding diagnostic results, Regarding treatment plan, Regarding prescription, Patient indicated understanding of instructions. DISCHARGE INFORMATION: Discharge Disposition: Home Discharge Location: Home PATIENT EDUCATION INFORMATION Instructions: Laceration Care, Adult, Dwfj-eu-[id number] Follow-Up: With: Address: When: Return to Emergency Department Within 3 to 5 days With: Address: When: None Provider Within 3 to 5 days DIAGNOSIS: Finger laceration Patient Understands: Yes - Patient/family/caregi philipp verbalizes understanding of instructions given Comment: [facility] ED Note - Physicianon 2019 ED Note [...] noted. Impression and Plan Diagnosis Finger laceration ([id number] S61.219A, Discharge, Medical) Plan Condition: Improved. Disposition: Discharged: Time 06/24/2020 09:29:00, to home. Patient was given the following educational materials: Laceration Care, Adult, Ulvw-xb-Uhno, Laceration Care, Adult, Prcr-yk-Ryzp. Follow up with: None Provider Within 3 to 5 days; Return to Emergency Department Within 3 to 5 days. Counseled: Patient, Regarding diagnosis, Regarding diagnostic results, Regarding treatment plan, Regarding prescription, Patient indicated understanding of instructions. [Electronically Signed on: 06/24/2020 09:44 EDT] Chandler Gallo MD [Verified on: 06/24/2020 09:44 EDT] Chandler Gallo MD [facility] ED Note-Nursingon 06-24-2020 ED Note-Nursing Ambulates to [...] that is 1cm . Awaiting exam. Normal [facility] ED Patient Education Noteon 06-24-2020 ED Patient [...] needed: ? Soap. ? Water. ? Hand hazard waste handler. ? Bandage (dressing). ? Antibiotic ointment. ? Clean towel. How to take care of your cut Wash your hands with soap and water before touching your wound or changing your bandage. If soap and water are not available, use hand hazard waste handler. If your doctor used stitches or jaye: [...] off the skin. General instructions ? Take bvjk-aac-csdhipd and prescription medicines only as told by [...] Reviewed: 11/03/2018 Elsevier Patient Education ? 2019 [employer] Normal [facility] ED Patient Summaryon 06-24- 020 ED Patient Summary [facility] - Emergency Department [address] [place] [address] PATIENT DISCHARGE INSTRUCTIONS Patient Information Name: MELLISA SAUNDERS Age: 24 Years Date of : 1995 Reason For Visit: Finger laceration; RIGHT FINGER LACERATION Arrival Time: 06/24/2020 08:39:04 Primary Care Physician: Provider, None Attending Physician: Chandler Gallo Comment: Visit Diagnosis: Diagnoses This Visit Finger laceration ([id number]) Finger laceration (S61.219A) Prescription Information: If you have been given a prescription for narcotics, seek immediate medical attention if you have any difficulty breathing or any sudden status changes such as confusion and sleepiness. If you or anyone you know is experiencing suicidal thoughts, mental health, alcohol and/or drug addiction problems; contact the [facility] 20/05 Crisis Hotline -text 4HWLI wn [phone]. If you received any narcotics, sedation, or [...] and treatment you received today in the [facility] Emergency Department were for an urgent problem and are not intended as complete care. It is important for you to follow up with a doctor, nurse practitioner, or physician?s hair assistant for ongoing care. If your symptoms become [...] so we can reach you if necessary. [facility] Emergency Department has provided you with a complete list of medications post discharge. Please inform your hospital supervisor/provider of your visit and for further instruction [...] needed: ? Soap. ? Water. ? Hand hazard waste handler. ? Bandage (dressing). ? Antibiotic ointment. ? Clean towel. How to take care of your cut Wash your hands with soap and water before touching your wound or changing your bandage. If soap and water are not available, use hand hazard waste handler. If your doctor used stitches or jaye: [...] off the skin. General instructions ? Take oshx-qsd-tyxaqnl and prescription medicines only as told by [...] 04/01/2009 Document Revised: 12/12/2018 Document Reviewed: 11/03/2018 [employer] Patient Education ? 2019 [employer]. Viruses or Bacteria What?s got you sick? [...] for Disease Control and Prevention June 2014 [facility] Release of Informationon Release of Information [id number] .[id number] [facility] Release of Informationon Release of Information [id number] .00OTGTIFF [facility] Coding Summaryon 07-30-2019 Coding Summary CODING DATE: 07/30/2019 [facility] STATUS: PAYOR: Medicaid HMO ADMIT DX: REASON [...] Manuel Ayala Date Saved: 07/30/2019 04:37 pm [facility] Coding Summary CODING DATE: 07/30/2019 [facility] STATUS: Home PAYOR: Medicaid HMO ADMIT DX: [...] Ayala' Revised Date Saved: 07/30/2019 04:29 pm [facility] .Auto Diff 1on 07-29-2019 Auto [place] % 6 % Normal 1-12 [facility] Comment on above: Performed By: #### 7 738992, 95558101, 52483085, 92312295, 2289731697, 0078691021, 0598376, 2827084, 0094823 #### [facility] (DEFAULT) [address] [place] [address] 03050 Baso Abs# 0.0 x10 Normal 0.0-0.2 [facility] Comment on above: Performed By: #### 7 587729, 82247728, 67737398, 20165043, 0791093195, 4277012176, 1331906, 0777639, 3296592 #### [facility] (DEFAULT) [address] [place] [address] 51602 Basophils/100 WBC (Bld) 0.6 % Normal 0.2-2.0 [facility] Comment on above: Performed By: #### 7 847386, 88361039, 65484919, 72924202, 6283455611, 6747455323, 5065607, 1831132, 7390496 #### [facility] (DEFAULT) [address] [place] [address] 33524 Eos Abs# 0.1 x10 Normal 0.0-0.4 [facility] Comment on above: Performed By: #### 7 144443, 18361491, 42043470, 24122341, 5129587333, 0474714521, 3364391, 5533156, 0305196 #### [facility] (DEFAULT) [address] [place] [address] 59490 Eosinophils/100 WBC (Bld) 1.0 % Normal 0.9-4.0 [facility] Comment on above: Performed By: #### 7 242894, 39227286, 97471707, 25042216, 4003220391, 5388411479, 8287623, 7287974, 1649710 #### [facility] (DEFAULT) [address] [place] [address] 82086 Lymphocytes (Bld) [#/Vol] 1.8 x10 Normal 1.3-2.9 [facility] Comment on above: Performed By: #### 7 249266, 87672585, 06690993, 49463971, 5429429704, 4447208232, 4791403, 7389760, 8802271 #### [facility] (DEFAULT) [address] [place] [address] 48284 Lymphocytes/100 WBC (Bld) 20 % Normal 14-48 [facility] Comment on above: Performed By: #### 7 691447, 21863570, 79357684, 15965153, 9169551119, 7879258013, 2483570, 9500481, 3162317 #### [facility] (DEFAULT) [address] [place] [address] 39098 [place] Abs# 0.5 x10 Normal 0.0-0.8 [facility] Comment on above: Performed By: #### 7 971470, 57687297, 38546813, 61890414, 7166844783, 7095176592, 4636614, 9113930, 4091834 #### [facility] (DEFAULT) [address] [place] [address] Neut Abs# 6.5 x10 Normal 1.5-9.2 [facility] Comment on above: Performed By: #### 7 571539, 39891283, 66378030, 12302264, 5189170383, 2809050511, 1850326, 3348997, 1821025 #### [facility] (DEFAULT) [address] [place] [address] Neutrophils/100 WBC (Bld) 73 % Normal 44-88 [facility] Comment on above: Performed By: #### 7 719265, 65118145, 84765900, 66384223, 1753791579, 6752656954, 1129664, 0224548, 2821028 #### [facility] (DEFAULT) [address] [place] [address] ABORhon 07-29-2019 ABO and Rh group Nom (Bld) Hx Check: Not Found Anti-A: 0 Anti-B: 4+ Anti-D: 4+ DCon: NT A1: 4+ B: 0 ABORh Interp: B POS [facility] Comment on above: Performed By: #### 7 111001, 39378380, 82175709, 77930515, 5382564356, 5850291319, 9351810, 3810349, 7614153 #### [facility] (DEFAULT) [address] [place] [address] ABORh Retypeon 07-29-2019 ABO and Rh group Nom (Bld) Ordered by Discern. Anti-A: 0 Anti-B: 4+ Anti-D: 4+ DCon: NT A1: 4+ B: 0 ABORh Retype: B POS [facility] Comment on above: Performed By: #### 7 063683, 39948126, 89446353, 31006206, 9490860215, 6865662230, 9547858, 4386426, 5927098 #### [facility] (DEFAULT) [address] [place] [address] ABSC Gelon 07-29-2019 ABSC Gel Negative Normal [facility] Comment on above: Performed By: #### 7 930147, 85725899, 57868665, 61241446, 2411008727, 8388679077, 9731843, 8070278, 0916729 #### [facility] (DEFAULT) [address] [place] [address] CBC w/ Auto Diffon 9 Erythrocyte distribution width (RBC) [Ratio] 11.9 % Normal 11.5-15.0 [facility] Comment on above: Performed By: #### 7 572529, 12837575, 52075288, 23324531, 1921196378, 9003734873, 9726472, 5457546, 7126006 #### [facility] (DEFAULT) [address] [place] [address] Hematocrit (Bld) [Volume fraction] 36.6 % Normal 33.7-40.4 [facility] Comment on above: Performed By: #### 7 586239, 38440836, 96276124, 32956724, 4721811284, 2879587485, 7539170, 8410574, 3585920 #### [facility] (DEFAULT) [address] [place] [address] Hemoglobin (Bld) [Mass/Vol] 12.6 g/dL Normal 11.3-15.9 [facility] Comment on above: Performed By: #### 7 057285, 99044709, 53126553, 27539673, 6291380747, 8396900543, 3022947, 4280058, 2883179 #### [facility] (DEFAULT) [address] [place] [address] Man Diff? Auto Normal [facility] Comment on above: Performed By: #### 7 497986, 81852206, 68879063, 38635818, 6963334522, 0391104664, 9512961, 6157467, 2583895 #### [facility] (DEFAULT) [address] [place] [address] 52190 MCH (RBC) [Entitic mass] 31 pg Normal 24-34 [facility] Comment on above: Performed By: #### 7 599301, 33653728, 41591721, 85641941, 9593334253, 8613707897, 2212372, 0604327, 2043530 #### [facility] (DEFAULT) [address] [place] [address] MCHC (RBC) [Mass/Vol] 34 g/dL Normal 26-37 [facility] Comment on above: Performed By: #### 7 109275, 13311495, 60008922, 46854409, 8103802268, 2565921094, 4782142, 2288872, 9323191 #### [facility] (DEFAULT) [address] [place] [address] 96714 MCV (RBC) [Entitic vol] 91 fL Normal 81-100 [facility] Comment on above: Performed By: #### 7 762711, 11908127, 01715341, 10205645, 6948979065, 5091316016, 4245755, 2723089, 8973575 #### [facility] (DEFAULT) [address] [place] [address] 10963 Platelet mean volume (Bld) [Entitic vol] 9.6 fL Normal 6.3-10.2 [facility] Comment on above: Performed By: #### 7 516731, 07508149, 68235172, 44466507, 7624378811, 6246316606, 9777383, 6782143, 4080738 #### [facility] (DEFAULT) [address] [place] [address] 39107 Platelets (Bld) [#/Vol] 379 x10 Normal 138-427 [facility] Comment on above: Performed By: #### 7 292795, 42661099, 92730286, 33760353, 2251973316, 6930524947, 3310149, 5850906, 3785477 #### [facility] (DEFAULT) [address] [place] [address] 32182 RBC (Bld) [#/Vol] 4.02 x10 Normal 3.70-5.30 [facility] Comment on above: Performed By: #### 7 986164, 51508628, 11960176, 88383971, 5169189362, 5814068391, 2488537, 1534019, 2772207 #### [facility] (DEFAULT) [address] [place] [address] 39118 WBC (Bld) [#/Vol] 8.9 x10 [facility] Comment on above: Performed By: #### 7 130589, 79120061, 90874779, 99755342, 1883703339, 8775293817, 5274735, 7884342, 1455560 #### [facility] (DEFAULT) [address] [place] [address] 02607 CMP Standardon 07-29-2019 eGFR Non AA >60 [facility] Comment on above: Performed By: #### 7 191831, 87039997, 33746214, 89142161, 7919274897, 1267827605, 2974072, 8336165, 1968678 #### [facility] (DEFAULT) [address] [place] [address] 75074 eGFR AA >60 [facility] Comment on above: Result Comment: Pairer Inspector christina Kidney disease could be indicated at eGFRs of less than 60 ml/min/1.73m2. Kidney Failure is indicated at less than 15 ml/min/1.73m2 Performed By: #### 7 913158, 74909903, 29856017, 77761757, 2446680181, 6688925872, 8134876, 8565200, 9364855 #### [facility] (DEFAULT) [address] [place] [address] 54998 Albumin [Mass/Vol] 4.8 g/dL Normal 3.5-5.0 [facility] Comment on above: Performed By: #### 7 587038, 45663976, 34117251, 87481502, 8312088594, 9437093213, 6527937, 1238070, 5246376 #### [facility] (DEFAULT) [address] [place] [address] 12780 Albumin/Globulin [Mass ratio] 2.0 {ratio} Normal 1.4-2.6 [facility] Comment on above: Performed By: #### 7 457859, 25047295, 25856904, 67551643, 8747987657, 9811901993, 3324187, 6565954, 4349319 #### [facility] (DEFAULT) [address] [place] [address] Alk Phos 50 IU/L Normal 32-91 [facility] Comment on above: Performed By: #### 7 158018, 94352809, 40044196, 19063156, 3963487615, 0168251726, 8087479, 1082409, 7295771 #### [facility] (DEFAULT) [address] [place] [address] ALT/SGPT 13.0 IU/L Low 14.0-54.0 [facility] Comment on above: Performed By: #### 7 135152, 32372509, 94829316, 44795197, 8259746824, 1884431404, 9093570, 2522645, 3660381 #### [facility] (DEFAULT) [address] [place] [address] Anion gap [Moles/Vol] 15.0 mmol/L Normal 5.0-19.0 [facility] Comment on above: Performed By: #### 7 041947, 88243654, 15662497, 57854788, 6272859604, 4847312687, 6295174, 1743199, 9967086 #### [facility] (DEFAULT) [address] [place] [address] 50936 AST/SGOT 15 IU/L Normal 15-41 [facility] Comment on above: Performed By: #### 7 222778, 21890790, 63846005, 68835430, 8060221044, 9165315672, 6616278, 1423366, 8355793 #### [facility] (DEFAULT) [address] [place] [address] Bili Total 0.6 mg/dL Normal 0.3-1.2 [facility] Comment on above: Performed By: #### 7 153130, 89834264, 45948474, 49664147, 2030472084, 9107083310, 3793971, 3702670, 0617771 #### [facility] (DEFAULT) [address] [place] [address] 19868 Calcium [Mass/Vol] 9.4 mg/dL Normal 8.9-10.3 [facility] Comment on above: Performed By: #### 7 041902, 63496429, 47584274, 83092518, 9269051726, 5817461817, 4241788, 8751071, 4791314 #### [facility] (DEFAULT) [address] [place] [address] 93461 Chloride [Moles/Vol] 107 mmol/L Normal 101-111 [facility] Comment on above: Performed By: #### 7 523440, 60855588, 44711932, 63305169, 3944384092, 4684177831, 9923127, 1703498, 0533192 #### [facility] (DEFAULT) [address] [place] [address] 06728 CO2 [Moles/Vol] 22 mmol/L Normal 21-32 [facility] Comment on above: Performed By: #### 7 727088, 29353994, 25308276, 13059277, 6596369497, 9501978271, 4328136, 8976794, 9044804 #### [facility] (DEFAULT) [address] [place] [address] 14914 Creatinine [Mass/Vol] 0.58 mg/dL Low 0.60-1.30 [facility] Comment on above: Performed By: #### 7 596400, 54740681, 04677072, 85848718, 7890661304, 9134434628, 1548231, 5963478, 5312558 #### [facility] (DEFAULT) [address] [place] [address] 68160 Globulin (S) [Mass/Vol] 2.4 g/dL Normal 1.5-4.3 [facility] Comment on above: Performed By: #### 7 550027, 23761310, 73028514, 92724922, 7626654529, 8551289385, 3021544, 0941115, 6831833 #### [facility] (DEFAULT) [address] [place] [address] 42114 Glucose [Mass/Vol] 93.0 mg/dL Normal 74.0-118.0 [facility] Comment on above: Performed By: #### 7 475900, 13475986, 91549130, 82940308, 8067304815, 0167881258, 4293947, 1418139, 9531487 #### [facility] (DEFAULT) [address] [place] [address] 52701 Osmolality [Osmolality] 277 mOsm/L [facility] Comment on above: Performed By: #### 7 653621, 45729537, 86359059, 71072956, 5535432058, 5128520838, 6868497, 7580247, 4183746 #### [facility] (DEFAULT) [address] [place] [address] 60967 Potassium [Moles/Vol] 3.5 mmol/L Low 3.6-5.1 [facility] Comment on above: Performed By: #### 7 152754, 70606037, 09695336, 49231646, 6498098756, 9811434830, 8974396, 1934899, 8910615 #### [facility] (DEFAULT) [address] [place] [address] 63196 Protein [Mass/Vol] 7.2 g/dL Normal 6.5-8.1 [facility] Comment on above: Performed By: #### 7 241490, 03167363, 25094796, 29910604, 4025069849, 8485981373, 2012983, 2810056, 1569187 #### [facility] (DEFAULT) [address] [place] [address] 14619 Sodium [Moles/Vol] 140.0 mmol/L Normal 136.0-144.0 [facility] Comment on above: Performed By: #### 7 707147, 02234197, 39102951, 69305422, 2350364556, 5444317162, 5519044, 3311287, 5626645 #### [facility] (DEFAULT) [address] [place] [address] 02014 Urea nitrogen [Mass/Vol] 7 mg/dL Low 8-26 [facility] Comment on above: Performed By: #### 7 730108, 49869735, 48361602, 98987928, 8844630568, 7377545064, 0793706, 4459975, 3366261 #### [facility] (DEFAULT) [address] [place] [address] 25983 Urea nitrogen/Creatinine [Mass ratio] 12.0 mg/mg Normal 4.6-16.2 [facility] Comment on above: Performed By: #### 7 213691, 06217617, 16539313, 75726554, 6375418764, 3481912080, 7413810, 0600734, 4303462 #### [facility] (DEFAULT) [address] [place] [address] 35670 ED Clinical Summaryon 2018 ED Clinical Summary [facility] - Emergency Department [address] [place] [address] 73761 ED Clinical Summary PERSON INFORMATION Name: MELLISA SAUNDERS Age: 23 Years Sex: FEMALE : 1995 MRN: Acct#: Visit Reason: Vaginal bleeding - < 20 wks ; VAGINAL BLEEDING Arrival: 07/29/2019 07:42:00 Discharge: 07/29/2019 11:20:00 LOS: 000 03:38 Check In: 07/29/2019 07:42:00 Checkout:07/29/2019 11:20:00 Address: [address] [place] [address]605 PCP: Provider, None PROVIDER INFORMATION Provider Role [...] Follow-Up: With: Address: When: Jenny Gibran [address] [place] [address] Business (1) Within 3 to 5 days With: Address: When: None Provider Within 3 to 5 days DIAGNOSIS: Subchorionic hemorrhage in first trimester Patient Understands: Yes - Patient/family/caregi philipp verbalizes understanding of instructions given Comment: [facility] ED Note - Physicianon 2018 [...] Plan Diagnosis Subchorionic hemorrhage in first trimester ([id number] O41.8X10, Discharge, Medical) Plan Condition: Stable. Disposition: [...] on: 07/29/2019 11:30 EDT] Chandler Gallo MD [facility] ED Note-Nursingon 07-29-2019 ED Note-Nursing Pt arrives to ED wit h vaginal bleeding for about 1 hour. Pt states she is about 7 weeks and she is pooling blood. Pt states she went to the OB about 3 weeks ago and had a confirmed . Pt states she is having mild cramping. [facility] ED Patient Education Noteon 07-29-2019 ED Patient [...] 01/29/2008 Document Revised: 12/10/2017 Document Reviewed: 12/10/2017 [employer] Interactive Patient Education ? 2019 [employer]. Normal [facility] ED Patient Summaryon 019 ED Patient Summary [facility] Emergency Department [address] [place] [address] PATIENT DISCHARGE INSTRUCTIONS Patient Information Name: MELLISA SAUNDERS Age: 23 Years Date of : 1995 Reason For Visit: Vaginal bleeding - < 20 wks ; VAGINAL BLEEDING Arrival Time: 07/29/2019 07:42:00 Primary Care Physician: Provider, None Attending Physician: Chandler Gallo Comment: Visit Diagnosis: Diagnoses This Visit Subchorionic hemorrhage in first trimester (O41.8X10) Vaginal bleeding - < 20 wks ([id number]) Prescription Information: If you have been given a prescription for narcotics, seek immediate medical attention if you have any difficulty breathing or any sudden status changes such as confusion and sleepiness. If you or anyone you know is experiencing suicidal thoughts, mental health, alcohol and/or drug addiction problems; contact the [facility] 20/05 Crisis Hotline -Text 4HXKM kh [phone]. If you received any narcotics, sedation, or [...] documents With: Address: When: Jenny Leary [address] [place] [address] Business (1) Within 3 to 5 days With: Address: When: None Provider Within 3 to 5 days Medication Information: The exam and treatment you received today in the [facility] Emergency Department were for an urgent problem and are not intended as complete care. It is important for you to follow up with a doctor, nurse practitioner, or physician?s hair assistant for ongoing care. If your symptoms become [...] so we can reach you if necessary. [facility] has provided you with a complete list of medications post discharge. Please inform your hospital supervisor/provider of your visit and for further instruction [...] 01/29/2008 Document Revised: 12/10/2017 Document Reviewed: 12/10/2017 [employer] Interactive Patient Education ? 2019 [employer] Viruses or Bacteria What?s got you [...] Disease Control and Prevention June 2014 Normal [facility] PT/PTTon 07-29-2019 aPTT Coag (Bld) [Time] 31 second(s) Normal 25-35 [facility] Comment on above: Performed By: #### 7 666942, 46753488, 62477323, 98206873, 6537438136, 5996823159, 6881202, 7406634, 6709424 #### [facility] (DEFAULT) [address] [place] [address] INR Coag (PPP) [Relative time] 1.07 {INR} Normal 0.91-1.11 [facility] Comment on above: Performed By: #### 7 459764, 26624362, 28000938, 87624546, 7625081727, 1781313896, 0757114, 3286217, 5057175 #### [facility] (DEFAULT) [address] [place] [address] PT Coag (PPP) [Time] 11.0 second(s) Normal 9.7-11.8 [facility] Comment on above: Performed By: #### 7 840047, 93706898, 62155131, 24429712, 2629597659, 9871699958, 0188832, 3921764, 6186198 #### [facility] (DEFAULT) [address] [place] [address] RhIG.on 07-29-2019 RhIG. No. Vials RhI RhIG Candidate?: No Date to Give: [id number] RhIG Status: NA [facility] Comment on above: Performed By: #### 7 523803, 86912005, 80782729, 65171546, 3815402477, 8780322855, 7278077, 2319945, 5880152 #### [facility] (DEFAULT) [address] [place] [address] UA [id number] 07-29-2019 RBC (U) [#/Vol] Few Normal [facility] Comment on above: Order Comment: Urina lysis Microscopic order added on by [employer] Rules system. Performed By: #### 1 [id number], 34809355 ####[facility] (DEFAULT)[address] [place] [address] UA Bacteria None Normal [facility] Comment on above: Order Comment: Urina lysis Microscopic order added on by [employer] Rules system. Performed By: #### 1 [id number], 44284382 ####[facility] (DEFAULT)[address] [place] [address] 74697 UA Renal Epi Rare Normal [facility] Comment on above: Order Comment: Urina lysis Microscopic order added on by [employer] Rules system. Performed By: #### 1 [id number], 79443303 ####[facility] (DEFAULT)[address] [place] [address] 99604 UA Squam Epi Rare [facility] Comment on above: Order Comment: Urina lysis Microscopic order added on by Dis[employer] Rules system. Performed By: #### 1 [id number], 54539080 ####[facility] (DEFAULT)[address] [place] [address] 28104 UA Urothelial Cells Rare Abnormal None Seen [facility] Comment on above: Order Comment: Urina lysis Microscopic order added on by [email or web address] Rules system. Performed By: #### 1 [id number], 55560198 ####[facility] (DEFAULT)[address] [place] [address] 58756 UA WBC None Seen [facility] Comment on above: Order Comment: Urina lysis Microscopic order added on by [email or web address] Rules system. Performed By: #### 1 [id number], 20004478 ####[facility] (DEFAULT)[address] [place] [address] 06428 UA w Culture if Ind Standard on 07-29-2019 Breakpoint UA [facility] Comment on above: Performed By: #### 1 [id number], 34848426 ####[facility] (DEFAULT)[address] [place] [address] 42712 Color (U) STRAW [facility] Comment on above: Performed By: #### 1 [id number], 23554741 ####[facility] (DEFAULT)[address] [place] [address] 93340 Culture? No Normal [facility] Comment on above: Performed By: #### 1 [id number], 68741542 ####[facility] (DEFAULT)[address] [place] [address] 82236 Glucose (U) [Mass/Vol] Negative [facility] Comment on above: Performed By: #### 1 106842335, 37558293 ####[facility] (DEFAULT)[address] [place] [address] 85823 Ketones Ql (U) TRACE [facility] Comment on above: Performed By: #### 1 [id number], [id number] ####[facility] (DEFAULT)[address] [place] [id number] Micro? Indicated [facility] Comment on above: Performed By: #### 1 [id number] ####[facility] (DEFAULT)[address] [place] [id number] UA Bilirubin Negative Normal [facility] Comment on above: Performed By: #### 1 [id number] ####[facility] (DEFAULT)[address] [place] [id number] UA Blood MODERATE Abnormal NEGATIVE [facility] Comment on above: Performed By: #### 1 [id number] ####[facility] (DEFAULT)[address] [place] [address] UA Clarity CLEAR Normal CLEAR [facility] Comment on above: Performed By: #### 1 [id number] ####[facility] (DEFAULT)[address] [place] [address] 01523 UA Leuk Est Negative Normal NEGATIVE [facility] Comment on above: Performed By: #### 1 [id number], [id number] ####[facility] (DEFAULT)[address] [place] [address]202 UA Nitrite Negative Normal NEGATIVE [facility] Comment on above: Performed By: #### 1 [id number], [id number] ####[facility] (DEFAULT)[address] [place] [address] 28781 UA pH 7.0 5-8 [facility] Comment on above: Performed By: #### 1 [id number], [id number] ####[facility] (DEFAULT)[address] [place] [address] 33030 UA Protein Negative Normal NEGATIVE [facility] Comment on above: Performed By: #### 1 [id number], [id number] ####[facility] (DEFAULT)[address] [place] [address] 44158 UA Spec Grav <=1.005 1.001-1.035 [facility] Comment on above: Performed By: #### 1 [id number], [id number] ####[facility] (DEFAULT)[address] [place] [address] 81552 UA Urobilinogen 0.2 mg/dL Normal 0.2-1.0 [facility] Comment on above: Performed By: #### 1 [id number], [id number] ####[facility] (DEFAULT)[address] [place] [address] Urine Source Clean Catch Normal [facility] Comment on above: Performed By: #### 1 [id number], [id number] ####[facility] (DEFAULT)[address] [place] [address] US 1st Trimesteron 07-29-2019 US 1st Trimester [...] MD 07/29/19 11:05 a Technologist: GEORGE ROBLEDO [facility] US Transvaginalon 07-29-2019 US Transvaginal EXAM: US [...] 07/29/19 11:05 a Technologist: GEORGE ROBLEDO Normal [facility] hCG Quantitativeon 9 hCG Quantitative 76487.0 mIU/mL High 0.0-0.6 [facility] Comment on above: Result Comment: Resu lt confirmed by dilution Post-Menopausal Reference Range is: 0.1-11.6 mIU/mL Performed By: #### 7 [id number], [id number], [id number] ####[facility] (DEFAULT)[address] [place] [address] Vital Signs Date Time Vital Sign Value Performing Clinician Twila mills 12-03-2023 15:34-0500 Body mass index (BMI) [Ratio] 20.4 kg/m2 Cielo Kisha DO Work Phone: [facility] 12-03-2023 15:34-0500 Body weight 45.81 kg Cielo Kisha DO Work Phone: [facility] 12-03-2023 15:34-0500 Diastolic blood pressure 60 mm[Hg] Cielo Kisha DO Work Phone: [facility] 12-03-2023 15:34-0500 Systolic blood pressure 100 mm[Hg] Cielo Kisha DO Work Phone: [facility] Healthcare Encounters Encounter Date Encounter Type [...] Start: 11-30-2023 End: 11-30-2023 ambulatory LEONEL [facility] Start: 11-25-2023 End: 11-25-2023 ambulatory DRE CHUNG Not Available Start: 11-04-2023 End: 11-04-2023 ambulatory CIELO BEARD Not Available Start: 05-13-2021 End: 05-14-[address] CIELO BEARD Facility:[facility] Start: 05-03-2021 End: 05-03-[address] CIELO BEARD Facility:[facility] Procedures Date Procedure Procedure Detail Performing Clinician Start: 12-03-2023 Urnls dip stick/tabl et rgnt non-auto w/o micrscp Cielo Beard DO Work Phone: Plan of Treatment Date Care Activity Detail Author Start: 12-25-2023 End: 12-25-2023 Patient encounter procedure 12/25/2023 3:40 PM EST Routine [facility] [address] [place] [address] Cielo Beard, DO [address] [place] [address] [facility] Payers Date Payer Category Payer Medicaid [facility] MEDICAID [facility] MEDICAID [id number] 2023-Present [address] [place] [address] [id number] 2021 Unknown [id number] 2021 Unknown BCBS BCBS [id number] 2021-Present [phone] [address] [place] [address] [id number] 1997 Unknown [id number] [id number] 1997 Unknown [id number] 2.16.840.1.924283.3.579.2.593 1997 Unknown [id number] 2.16.840.1.178885.3.579.2.1286 1997 Unknown [id number] 2.16.840.1.425366.3.579.2.1259 1997 Unknown [id number] 2.16.840.1.673884.3.579.2.1259 1997 Unknown [id number] 2.16.840.1.628722.3.579.2.1259 1997 Unknown [id number] 2.16.840.1.276822.3.579.2.1259 1997 Unknown [id number] 2.16.840.1.276746.3.579.2.1259 1997 Unknown [id number] 2.16.840.1.435954.3.579.2.1259 1959 Unknown [id number] Social History Date Type Detail Facility Start: 10-09-2023 [facility] [...] of Present illness Narrative 12-03-2023 Sally Babin, ASSISTANT PROFESSOR OF BUSINESS - 12/03/2023 3:30 PM EST Note Date [...] nursing note reviewed. Exam conducted with a distribution center associate present. Vitals: Estimated body mass index is [...] section and content) DATE CREATED AUTHOR 06/26/2020 [facility] DATE CREATED AUTHOR AUTHOR'S ORGANIZ ATION 02/28/2022 [facility] DATE CREATED AUTHOR AUTHOR'S ORGANIZ ATION 12/02/2023 [facility] DATE CREATED AUTHOR AUTHOR'S ORGANIZ ATION 01/30/2024 [facility] EPIC Reason for Visit (unrecogniz ed [...] BE BASED ON THE PRIMARY CLINICAL RECORDS. [facility] [employer] [facility]. provides no warranty or guarantee of the accuracy or completeness of information in this document.
== END 2024-03-03 21:28 | disposition home or self-care (01) ==
LOC: LAB 21:27
PROVIDERS: Visit Provider Obstetrics & Gynecology
DX: Z34.93 Encounter for supervision of normal pregnancy, unspecified, third trimester (principal)
CPT/HCPCS: 87081

== ENCOUNTER 2024-11-30 21:33 | Outpatient (REF) | payer BC, OTHER, SELFPAY ==
--- OUTSIDE RECORDS SUMMARY | 2024-11-30 21:38 | XMS_ITS | CCD ---
Author Organization [facility] Care Team Providers Care Commercial Retoucher Name Role Phone KISHA, DR BUCK Admitting Unavailable KISHA, DR BUCK Attending Unavailable REQUEST, DR HONG LISTED Primary Care Unavaila an BEARD, DR BUCK Consulting Unavailable KISHA, DR BUCK Admitting Unavailable KISHA, DR BUCK Attending Unavailable REQUEST, DR HOGN LISTED Primary Care Unavaila an MCDONALD, DR JAXSON Fan Consulting Unavailable KISHA, DR BUCK Consulting Unavailable LEONEL BELL Admitting Unavailable LEONEL BELL Attending Unavailable SERVICES, [facility] Primary Care Unava ilable Unavailable Primary Care Provider UnavailCIELO Victor Attending Unavailable DRE CHUNG Attending Unavailable KISHA, CIELO Attending Unavailable KISHA, CIELO Attending Unavailable DRE CHUNG Attending Unavailable CIELO BEARD Attending Unavailable CIELO BEARD Attending Unavailable CIELO BEARD Attending Unavailable CIELO BEARD Attending Unavailable Medications [...] UA Negative Negative - 4(70) +++ mg/dL [facility] Blood, UA Negative Negative - 50 Mihir/mcL [facility] Clarity, UA Clear [facility] Color, UA Yellow [facility] Glucose, UA Negative Negative - 2000(110) ++++ mg/dL [facility] Interpretation and review of laboratory results Normal [facility] Ketones, UA Negative Negative - 160(16) ++++ mg/dL [facility] Leukocytes, UA Negative Negative - 500+++ Mila/mcL [facility] Nitrite, UA Negative Negative - Positive [facility] pH, UA 7.0 5 - 9 [facility] Protein, UA Negative Negative - 1999(20) ++++ mg/dL [facility] Spec Grav, UA 1.025 1 - 1.03 [facility] Urobilinogen, UA 1.0 0.2 - 12 mg/dL [facility] CHLAMYDIA/GC BY PCRon 2023 [...] are dependent on adequate specimen collection. Normal [facility] Comment on above: Performed By: #### C GS #### [facility] ([id number]) [address] [place] [address], [address] [place] [address] COMPLETE BLOOD COUNTon 11-30 Erythrocyte distribution width (RBC) [Ratio] 13.0 % Normal 11.5-15.0 [facility] Comment on above: Performed By: #### C BC, CMP #### [facility] ([id number]) [address] [place] [address] 87584 Hematocrit (Bld) [Volume fraction] 35.9 % Normal 35-47 [facility] Comment on above: Performed By: #### C BC, CMP #### [facility] ([id number]) [address] [place] [address] 82832 Hemoglobin (Bld) [Mass/Vol] 12.3 g/dL Normal 11.7-15.5 [facility] Comment on above: Performed By: #### C BC, CMP #### [facility] ([id number]) [address] [place] [address] 10119 MCH (RBC) [Entitic mass] 31.4 pg Normal 27-34 [facility] Comment on above: Performed By: #### C BC, CMP #### [facility] ([id number]) [address] [place] [address] 35099 MCHC (RBC) [Mass/Vol] 34.3 g/dL Normal 32-36 [facility] Comment on above: Performed By: #### C BC, CMP #### [facility] ([id number]) [address] [place] [address] 90139 MCV (RBC) [Entitic vol] 92 fL Normal 80-100 [facility] Comment on above: Performed By: #### C BC, CMP #### [facility] ([id number]) [address] [place] [address] 98807 Platelet mean volume (Bld) [Entitic vol] 8.5 fL Normal 7-12 [facility] Comment on above: Performed By: #### C BC, CMP #### [facility] ([id number]) [address] [place] [address] 63087 Platelets (Bld) [#/Vol] 327 10*3/uL Normal 150-450 [facility] Comment on above: Performed By: #### C BC, CMP #### [facility] ([id number]) [address] [place] [address] 97945 RBC COUNT 3.92 X10E12/L Normal 3.80-5.20 [facility] Comment on above: Performed By: #### C BC, CMP #### [facility] ([id number]) [address] [place] [address] 26050 WBC (Bld) [#/Vol] 12.2 10*3/uL High 4.0-11.0 [facility] Comment on above: Performed By: #### C BC, CMP #### [facility] ([id number]) [address] [place] [address] 54935 COMPREHENSIVE METABOLIC PANE [place] 11-30-2023 Albumin [Mass/Vol] 4.0 g/dL Normal 3.2-5.3 [facility] Comment on above: Performed By: #### C BC, CMP #### [facility] ([id number]) [address] [place] [address] 18397 ALP [Catalytic activity/Vol] 63 U/L Normal 39-130 [facility] Comment on above: Performed By: #### C BC, CMP #### [facility] ([id number]) [address] [place] [address] 84603 ALT [Catalytic activity/Vol] 12 U/L Normal 0-31 [facility] Comment on above: Performed By: #### C BC, CMP #### [facility] ([id number]) [address] [place] [address] 95230 Anion gap [Moles/Vol] 8 mmol/L Normal 5-15 [facility] Comment on above: Performed By: #### C BC, CMP #### [facility] ([id number]) [address] [place] [address] 29053 AST [Catalytic activity/Vol] 18 U/L Normal 0-41 [facility] Comment on above: Performed By: #### C BC, CMP #### [facility] ([id number]) [address] [place] [address] 05785 Bilirubin [Mass/Vol] 0.2 mg/dL Low 0.3-1.2 [facility] Comment on above: Performed By: #### C BC, CMP #### [facility] ([id number]) [address] [place] [address] 66366 Calcium [Mass/Vol] 9.2 mg/dL Normal 8.5-10.5 [facility] Comment on above: Performed By: #### C BC, CMP #### [facility] ([id number]) [address] [place] [address] 22465 Chloride [Moles/Vol] 104 mmol/L Normal 98-109 [facility] Comment on above: Performed By: #### C KASEY, CMP #### [facility] ([id number]) [address] [place] [address] 05854 CO2 [Moles/Vol] 24 mmol/L Normal 22-32 [facility] Comment on above: Performed By: #### C KASEY, CMP #### [facility] ([id number]) [address] [place] [address] 64295 Creatinine [Mass/Vol] 0.47 mg/dL Normal 0.40-1.00 [facility] Comment on above: Result Comment: METH OD TRACEABLE TO IDMS STANDARD Performed By: #### C KASEY, CMP #### [facility] ([id number]) [address] [place] [address] 23631 eGFR (CKD-EPI) NON-RACE DEPENDENT >90 Normal >59 [facility] Comment on above: Result Comment: Reported eGFR is based on the CKD-EPI 2020 equation that does not use a race coefficient. Performed By: #### C KASEY, CMP #### [facility] ([id number]) [address] [place] [address] 63503 Glucose [Mass/Vol] 106 mg/dL High 65-99 [facility] Comment on above: Performed By: #### C KASEY, CMP #### [facility] ([id number]) [address] [place] [address] 32557 Potassium [Moles/Vol] 3.3 mmol/L Low 3.5-5.0 [facility] Comment on above: Performed By: #### C BC, CMP #### [facility] ([id number]) [address] [place] [address] 23527 Protein [Mass/Vol] 7.2 g/dL Normal 6.0-8.0 [facility] Comment on above: Performed By: #### C BC, CMP #### [facility] ([id number]) [address] [place] [address] 33614 Sodium [Moles/Vol] 136 mmol/L Normal 134-146 [facility] Comment on above: Performed By: #### C BC, CMP #### [facility] ([id number]) [address] [place] [address] 43512 Urea nitrogen [Mass/Vol] 5 mg/dL Normal 5-23 [facility] Comment on above: Performed By: #### C BC, CMP #### [facility] ([id number]) [address] [place] [address] 84141 DRUG SCREEN, URINEon 024 AMPHETAMINE/METHAMP Negative Normal NEG [facility] Comment on above: Result Comment: AMPH /METH screening cut off = 1000 ng/mL Performed By: #### D BILLY #### [facility] ([id number]) [address] [place] [address] 55853 BARBITURATES Negative Normal NEG [facility] Comment on above: Result Comment: Lina iturates screening cut off value = 200 ng/mL Performed By: #### D BILLY #### [facility] ([id number]) [address] [place] [address] 13713 BENZODIAZEPINES Negative Normal NEG [facility] Comment on above: Result Comment: Jose odiazepines screening cut off value = 200 ng/mL Performed By: #### D BILLY #### [facility] ([id number]) [address] [place] [address] 21196 CANNABINOIDS Negative Normal NEG [facility] Comment on above: Result Comment: Jolie abinoids/THC screening cut off value = 50 ng/mL Performed By: #### D BILLY #### [facility] ([id number]) [address] [place] [address] 37215 COCAINE METABOLITE Negative Normal NEG [facility] Comment on above: Result Comment: Coca ine screening cut off value = 300 ng/mL Performed By: #### D BILLY #### [facility] ([id number]) [address] [place] [address] 36633 ECSTASY Negative Normal NEG [facility] Comment on above: Result Comment: Ecst asy screening cut off value = 500 ng/mL This report is intended for use in clinical monitoring or management of patients. Performed By: #### D BILLY #### [facility] ([id number]) [address] [place] [address] 47970 METHADONE Negative Normal [facility] Comment on above: Result Comment: Meth adone screening cut off value = 300 ng/mL. Performed By: #### D BILLY #### [facility] ([id number]) [address] [place] [address] 49136 OPIATES Negative Normal [facility] Comment on above: Result Comment: Opia nina screening cut off value = 300 ng/mL NOTE: This test is used for the detection of codeine, hydrocodone (>1000 ng/mL), morphine and hydromorphone (>900 ng/mL) in urine. Performed By: #### D BILLY #### [facility] ([id number]) [address] [place] [address] 78403 OXYCODONE Negative Normal [facility] Comment on above: Result Comment: Oxyc odone screening cut off value = 300 ng/mL NOTE: This test is used for the detection of oxycodone and oxymorphone in urine. Performed By: #### D BILLY #### [facility] ([id number]) [address] [place] [address] 07133 PHENCYCLIDINE Negative Normal NEG [facility] Comment on above: Result Comment: Phen cyclidine screening cut off value = 25 ng/mL Performed By: #### D BILLY #### [facility] ([id number]) [address] [place] [address], [place] [address] URINALYSISon 11-30-2023 Bilirubin Ql (U) Negative Normal NEG [facility] Comment on above: Performed By: #### U A #### [facility] ([id number]) [address] [place] [address] [place] [address] BLOOD/HGB Negative Normal NEG [facility] Comment on above: Performed By: #### U A #### [facility] ([id number]) [address] [place] [address] [place] [address] Color (U) YELLOW Normal YELLOW [facility] Comment on above: Performed By: #### U A #### [facility] ([id number]) [address] [place] [address] [place] [address] Glucose Ql (U) Negative Normal NEG [facility] Comment on above: Performed By: #### U A #### [facility] ([id number]) [address] [place] [address] [place] [address] Ketones Ql (U) Negative Normal NEG [facility] Comment on above: Performed By: #### U A #### [facility] ([id number]) [address] [place] [address] [place] [address] Leukocyte esterase Test strip Ql (U) Negative Normal NEG [facility] Comment on above: Performed By: #### U A #### [facility] ([id number]) [address] [place] [address] [place] [address] Nitrite Ql (U) Negative Normal NEG [facility] Comment on above: Performed By: #### U A #### [facility] ([id number]) [address] [place] [address] [place] [address] pH (U) 6.5 [pH] Normal 5.0-8.5 [facility] Comment on above: Performed By: #### U A #### [facility] ([id number]) [address] [place] [address] 31194 Protein Ql (U) Negative Normal NEG [facility] Comment on above: Performed By: #### U A #### [facility] ([id number]) [address] [place] [address] 48537 Specific gravity (U) [Rel density] <1.005 Normal 1.003-1.035 [facility] Comment on above: Performed By: #### U A #### [facility] ([id number]) [address] [place] [address] 71532 TURBIDITY CLEAR Normal CLEAR [facility] Comment on above: Performed By: #### U A #### [facility] ([id number]) [address] [place] [address] 09389 Urobilinogen Qn (U) 0.2 {Luiz'U}/dL Normal <1.1 [facility] Comment on above: Performed By: #### U A #### [facility] ([id number]) [address] [place] [address] 81114 URINE CULTUREon 11-30-2023 Bacteria identified Cx Nom (U) CULTURE RESULTS <10,000 ORGANISMS/ML NORMAL URO GENITAL ANTWON Normal [facility] Comment on above: Performed By: #### 6 30-4 #### [facility] ([id number]) [address] [place] [address], [address] [place] [address] VAGINITIS PANEL PCRon 2023 VAGINITIS PANEL PCR [...] clinical presentation to determine patient diagnosis. Normal [facility] Comment on above: Performed By: #### V PPCR #### [facility] ([id number]) [address] [place] [address], [address] [place] [address] US THYROIDon 05-15-2021 US THYROID EXAMINATION: US [...] JAXSON KERR Date: 2021-05-15 07:09 Normal [facility] CBC AUTO DIFFon 05-13-2021 BASO # 0.1 103/ul Normal 0.0-0.1 [facility] Comment on above: Performed By: #### C BC #### [facility] [address] [place], [place] [address] Ellen Zavala Basophils/100 WBC (Bld) 0.8 % Normal 0.2-2.0 [facility] Comment on above: Performed By: #### C BC #### [facility] [address] [place] [address] Ellen Sally EO # 0.3 103/ul Normal 0.0-0.7 [facility] Comment on above: Performed By: #### C BC #### [facility] [address] [place] [address] Ellen Sally Eosinophils/100 WBC (Bld) 3.6 % Normal 0.9-7.0 [facility] Comment on above: Performed By: #### C BC #### [facility] [address] [place] [address] Ellen Sally Erythrocyte distribution width (RBC) [Ratio] 12.4 % Normal 11.0-15.0 [facility] Comment on above: Performed By: #### C BC #### [facility] [address] [place] [address] Ellen Sally Hematocrit (Bld) [Volume fraction] 42.3 % Normal 36.0-48.0 [facility] Comment on above: Performed By: #### C BC #### [facility] [address] [place] [address] Ellen Sally Hemoglobin (Bld) [Mass/Vol] 14.4 g/dL Normal 12.0-16.0 [facility] Comment on above: Performed By: #### C BC #### [facility] [address] [place] [address] Ellen Sally IG # 0.01 10e3/ul Normal 0.00-0.03 [facility] Comment on above: Performed By: #### C BC #### [facility] [address] [place] [address] Ellen Sally IG % 0.1 % Normal 0.0-0.5 [facility] Comment on above: Performed By: #### C BC #### [facility] [address] [place] [address] Ellen Sally LYMPH # 2.4 103/ul Normal 1.2-3.8 [facility] Comment on above: Performed By: #### C BC #### [facility] [address] [place] [address] Ellen Sally Lymphocytes/100 WBC (Bld) 30.1 % Normal 20.5-60.0 [facility] Comment on above: Performed By: #### C BC #### [facility] [address] [place], [place] [address] Ellen Zavala MANUAL DIFF REQ NO Normal [facility] Comment on above: Performed By: #### C BC #### [facility] [address] [place], [place] [address] Ellenaixa Zavala MCH (RBC) [Entitic mass] 30.4 pg Normal 26.7-34.0 [facility] Comment on above: Performed By: #### C BC #### [facility] [address] [place] [address] Ellen Zavala MCHC (RBC) [Mass/Vol] 34.0 g/dL Normal 29.9-35.2 [facility] Comment on above: Performed By: #### C BC #### [facility] [address] [place] [address] Ellenaixa Zavala MCV (RBC) [Entitic vol] 89.4 fL Normal 81.0-99.0 [facility] Comment on above: Performed By: #### C BC #### [facility] [address] [place] [address] Ellenaixa Zavala MONO # 0.4 103/ul Normal 0.3-0.8 [facility] Comment on above: Performed By: #### C BC #### [facility] [address] [place] [address] Ellen Zavala Monocytes/100 WBC (Bld) 5.4 % Normal 1.7-12.0 [facility] Comment on above: Performed By: #### C BC #### [facility] [address] [place] [address] Ellen Sally NEUT # 4.7 103/ul Normal 1.4-6.5 [facility] Comment on above: Performed By: #### C BC #### [facility] [address] [place] [address] Ellen Sally Neutrophils/100 WBC (Bld) 60.0 % Normal 43.0-75.0 [facility] Comment on above: Performed By: #### C BC #### [facility] [address] [place] [id number] Ellenaixa Zavala Platelet mean volume (Bld) [Entitic vol] 9.4 fL Critically low 9.5-13.5 [facility] Comment on above: Performed By: #### C BC #### [facility] [address] [place] [id number] Ellen Sally PLT 449 103/ul Normal 150-450 [facility] Comment on above: Performed By: #### C BC #### [facility] [address] [place] [address] Ellen Sally RBC 4.73 106/ul Normal 4.20-5.40 [facility] Comment on above: Performed By: #### C BC #### [facility] [address] [place] [address] Ellen Sally WBC 7.8 103/ul Normal 4.0-11.0 [facility] Comment on above: Performed By: #### C BC #### [facility] [address] [place], [place] [address] Ellenaixa Zavala PAP ACOG PANEL 2: 23 to 31on 05-08-2021 . . Normal [facility] Comment on above: Performed By: #### 4 [id number] #### [facility] [address] [place], [place] [address] Ellen Zavala Age Gdln ACOG Testing 21-29 Normal [facility] Comment on above: Performed By: #### 4 [id number] #### [facility] [address] [place], [place] [address] Ellen Zavala DIAGNOSIS: Comment Normal [facility] Comment on above: Result Comment: NEGA TIVE FOR INTRAEPITHELIAL LESION OR MALIGNANCY. Performed By: #### 4 [id number] #### [facility] [address] [place], [place] [address] Ellenaixa Zavala Methodology: Comment Normal [facility] Comment on above: Result Comment: This liquid based ThinPrep(R) pap test was screened with the use of an image guided system. Performed By: #### 4 [id number] #### [facility] [address] [place] [id number] Ellen Zavala Note: Comment Normal [facility] Comment on above: Result Comment: The Pap smear is a screening test designed to aid in the detection of premalignant and malignant conditions of the uterine cervix. It is not a diagnostic procedure and should not be used as the sole means of detecting cervical cancer. Both false-positive and false-negative reports do occur. . Performed By: #### 4 [id number] #### [facility] [address] [place] [address] Ellen Zavala Performed by: Comment Normal [facility] Comment on above: Result Comment: Olga Guidry, Precipitator Operator (ASCP) Performed By: #### 4 [id number] #### [facility] [address] [place] [address] Ellen Zavala Reflex Criteria: Comment Normal [facility] Comment on above: Result Comment: The HPV DNA reflex criteria were not met with this specimen result therefore, no HPV testing was performed. . Performed By: #### 4 [id number] #### [facility] [address] [place] [address] Ellenaixa Zavala Specimen adequacy: Comment Normal [facility] Comment on above: Result Comment: Sati sfactory for evaluation. Endocervical and/or squamous metaplastic cells (endocervical component) are present. Performed By: #### 4 [id number] #### [facility] [address] [place] [address] Ellen Zavala Coding Summaryon 06-25-2020 Coding Summary CODING DATE: 06/25/2020 [facility] STATUS: PAYOR: Workers Compensation ADMIT DX: [...] Manuel Ayala Date Saved: 06/25/2020 11:13 am [facility] Coding Summary CODING DATE: 06/25/2020 [facility] STATUS: Home PAYOR: Workers Compensation ADMIT [...] Manuel Ayala Date Saved: 06/25/2020 11:10 am [facility] Consent Formson 06-24-2020 Consent Forms [id number] [facility] ED Clinical Summaryon 2019 ED Clinical Summary [facility] - Emergency Department [address] [place] [address] [id number] ED Clinical Summary PERSON INFORMATION Name: MELLISA SAUNDERS Age: 24 Years Sex: FEMALE : 1995 MRN: Acct#: Visit Reason: Finger laceration; RIGHT FINGER LACERATION Arrival: 06/24/2020 08:39:04 Discharge: 06/24/2020 09:50:00 LOS: 000 01:11 Check In: 06/24/2020 08:39:04 Checkout:06/24/2020 09:50:00 Address: [address] [place] [address] PCP: Provider, None PROVIDER INFORMATION Provider Role [...] noted. Impression and Plan Diagnosis Finger laceration ([id number] S61.219A, Discharge, Medical) Plan Condition: Improved. Disposition: Discharged: Time 06/24/2020 09:29:00, to home. Patient was given the following educational materials: Laceration Care, Adult, Xgnx-ec-Suxj, Laceration Care, Adult, Ezka-uv-Kecj. Follow up with: None Provider Within 3 to 5 days; Return to Emergency Department Within 3 to 5 days. Counseled: Patient, Regarding diagnosis, Regarding diagnostic results, Regarding treatment plan, Regarding prescription, Patient indicated understanding of instructions. DISCHARGE INFORMATION: Discharge Disposition: Home Discharge Location: Home PATIENT EDUCATION INFORMATION Instructions: Laceration Care, Adult, Dbpr-ka-Lswd Follow-Up: With: Address: When: Return to Emergency Department Within 3 to 5 days With: Address: When: None Provider Within 3 to 5 days DIAGNOSIS: Finger laceration Patient Understands: Yes - Patient/family/caregi philipp verbalizes understanding of instructions given Comment: Normal [facility] ED Note - Physicianon 2019 ED [...] noted. Impression and Plan Diagnosis Finger laceration ([id number] S61.219A, Discharge, Medical) Plan Condition: Improved. Disposition: Discharged: Time 06/24/2020 09:29:00, to home. Patient was given the following educational materials: Laceration Care, Adult, Jdmc-ng-Dqcz, Laceration Care, Adult, Jssg-uc-Wmar. Follow up with: None Provider Within 3 to 5 days; Return to Emergency Department Within 3 to 5 days. Counseled: Patient, Regarding diagnosis, Regarding diagnostic results, Regarding treatment plan, Regarding prescription, Patient indicated understanding of instructions. [Electronically Signed on: 06/24/2020 09:44 EDT] Chandler Gallo MD [Verified on: 06/24/2020 09:44 EDT] Chandler Gallo MD [facility] ED Note-Nursingon 06-24-2020 ED Note-Nursing Ambulates [...] that is 1cm . Awaiting exam. Normal [facility] ED Patient Education Noteon 06-24-2020 ED [...] needed: ? Soap. ? Water. ? Hand director of architecture. ? Bandage (dressing). ? Antibiotic ointment. ? Clean towel. How to take care of your cut Wash your hands with soap and water before touching your wound or changing your bandage. If soap and water are not available, use hand director of architecture. If your doctor used stitches or jaye: [...] off the skin. General instructions ? Take issw-upb-wnawsxp and prescription medicines only as told by [...] Reviewed: 11/03/2018 Elsevier Patient Education ? 2019 [employer] Normal [facility] ED Patient Summaryon 08-28-2 020 ED Patient Summary [facility] - Emergency Department [address] [place] [address] PATIENT DISCHARGE INSTRUCTIONS Patient Information Name: MELLISA SAUNDERS Age: 24 Years Date of : 1995 [facility]: [id number] Reason For Visit: Finger laceration; RIGHT FINGER LACERATION Arrival Time: 06/24/2020 08:39:04 Primary Care Physician: Provider, None Attending Physician: Chandler Gallo Comment: Visit Diagnosis: Diagnoses This Visit Finger laceration ([id number]) Finger laceration (S61.219A) Prescription Information: If you have been given a prescription for narcotics, seek immediate medical attention if you have any difficulty breathing or any sudden status changes such as confusion and sleepiness. If you or anyone you know is experiencing suicidal thoughts, mental health, alcohol and/or drug addiction problems; contact the [facility] 20/05 Crisis Hotline -text 4hope to [phone]. If you received any narcotics, sedation, or [...] and treatment you received today in the [facility] Emergency Department were for an urgent problem and are not intended as complete care. It is important for you to follow up with a doctor, nurse practitioner, or physician?s certified surgical tech/first assistant for ongoing care. If your symptoms [...] so we can reach you if necessary. [facility] Emergency Department has provided you with a complete list of medications post discharge. Please inform your primary therapist/provider of your visit and for further instruction [...] needed: ? Soap. ? Water. ? Hand director of architecture. ? Bandage (dressing). ? Antibiotic ointment. ? Clean towel. How to take care of your cut Wash your hands with soap and water before touching your wound or changing your bandage. If soap and water are not available, use hand director of architecture. If your doctor used stitches or jaye: [...] off the skin. General instructions ? Take kzxj-yrc-huastor and prescription medicines only as told by [...] 04/01/2009 Document Revised: 12/12/2018 Document Reviewed: 11/03/2018 [employer] Patient Education ? 2019 [employer]. Viruses or Bacteria What?s got you sick? [...] for Disease Control and Prevention June 2014 [facility] Release of Informationon Release of Information [id number] .00OTGTIFF [facility] Release of Informationon Release of Information [id number] .00OTGTIFF [facility] Coding Summaryon 07-30-2019 Coding Summary CODING DATE: 07/30/2019 [facility] STATUS: PAYOR: Medicaid HMO ADMIT DX: [...] result in slightly different terminology. Coded By: Ilya Ayala' Date Saved: 07/30/2019 04:37 pm [facility] Coding Summary CODING DATE: 07/30/2019 [facility] STATUS: Home PAYOR: Medicaid HMO ADMIT [...] different terminology. Revised Coded By: Jesus Manuel Ayala Revised Date Saved: 07/30/2019 04:29 pm [facility] .Auto Diff 1on 07-29-2019 Auto [place] % 6 % Normal 1-12 [facility] Comment on above: Performed By: #### 7 341606, 98476805, 85886110, 03929168, 8150766696, 5603167232, 2147557, 2755952, 6564221 #### [facility] (DEFAULT) [address] [place] [address] 64906 Baso Abs# 0.0 x10 Normal 0.0-0.2 [facility] Comment on above: Performed By: #### 7 773904, 07758081, 18881340, 62262489, 5366274691, 6644659723, 7203606, 8194982, 6804615 #### [facility] (DEFAULT) [address] [place] [address] 75057 Basophils/100 WBC (Bld) 0.6 % Normal 0.2-2.0 [facility] Comment on above: Performed By: #### 7 606300, 39332432, 94502191, 15816496, 0167102398, 1978405250, 8586071, 3360889, 4292117 #### [facility] (DEFAULT) [address] [place] [address] 85715 Eos Abs# 0.1 x10 Normal 0.0-0.4 [facility] Comment on above: Performed By: #### 7 157125, 06149264, 56655444, 71639362, 8381515209, 8093376463, 8531958, 1953394, 2272299 #### [facility] (DEFAULT) [address] [place] [address] 80648 Eosinophils/100 WBC (Bld) 1.0 % Normal 0.9-4.0 [facility] Comment on above: Performed By: #### 7 909513, 19743724, 55138783, 01588266, 2838153578, 6022644998, 3399557, 5970331, 1426972 #### [facility] (DEFAULT) [address] [place] [address] 06415 Lymphocytes (Bld) [#/Vol] 1.8 x10 Normal 1.3-2.9 [facility] Comment on above: Performed By: #### 7 039091, 73435461, 91210870, 61700637, 9549310277, 4446971048, 5510448, 4052694, 6055876 #### [facility] (DEFAULT) [address] [place] [address] 09083 Lymphocytes/100 WBC (Bld) 20 % Normal 14-48 [facility] Comment on above: Performed By: #### 7 082415, 87035327, 11607987, 10725090, 8826839311, 2715456312, 6386622, 6650375, 5214985 #### [facility] (DEFAULT) [address] [place] [address] 69061 [place] Abs# 0.5 x10 Normal 0.0-0.8 [facility] Comment on above: Performed By: #### 7 157799, 48713854, 41892284, 75600605, 5933622190, 0706405149, 1469546, 8966752, 5196833 #### [facility] (DEFAULT) [address] [place] [address] Neut Abs# 6.5 x10 Normal 1.5-9.2 [facility] Comment on above: Performed By: #### 7 874608, 84220429, 54146934, 49024493, 9770917838, 9166800799, 5777868, 6395585, 0214116 #### [facility] (DEFAULT) [address] [place] [address] Neutrophils/100 WBC (Bld) 73 % Normal 44-88 [facility] Comment on above: Performed By: #### 7 198371, 18435434, 31451719, 36902141, 8774203525, 1333433231, 2274908, 4230612, 7855359 #### [facility] (DEFAULT) [address] [address] ABORhon 07-29-2019 ABO and Rh group Nom (Bld) Hx Check: Not Found Anti-A: 0 Anti-B: 4+ Anti-D: 4+ DCon: NT A1: 4+ B: 0 ABORh Interp: B POS [facility] Comment on above: Performed By: #### 7 265376, 68480466, 25212837, 05095860, 4659569145, 2423245247, 3570534, 9281219, 8969141 #### [facility] (DEFAULT) [address] [address] ABORh Retypeon 07-29-2019 ABO and Rh group Nom (Bld) Ordered by Discern. Anti-A: 0 Anti-B: 4+ Anti-D: 4+ DCon: NT A1: 4+ B: 0 ABORh Retype: B POS [facility] Comment on above: Performed By: #### 7 905810, 55971081, 55289637, 27223769, 4841197289, 6422183524, 9746307, 6654186, 5052377 #### [facility] (DEFAULT) [address] [place] [address] ABSC Gelon 07-29-2019 ABSC Gel Negative Normal [facility] Comment on above: Performed By: #### 7 949846, 62605238, 69850720, 76500387, 7898683807, 3717568446, 8494834, 3473430, 2796697 #### [facility] (DEFAULT) [address] [address] CBC w/ Auto Diffon 9 Erythrocyte distribution width (RBC) [Ratio] 11.9 % Normal 11.5-15.0 [facility] Comment on above: Performed By: #### 7 264256, 41894559, 78502951, 73254292, 1266177413, 3126819950, 7499785, 5805785, 4128824 #### [facility] (DEFAULT) [address] [place] [address] Hematocrit (Bld) [Volume fraction] 36.6 % Normal 33.7-40.4 [facility] Comment on above: Performed By: #### 7 849158, 95372445, 82466284, 24782411, 6606506667, 1352305041, 0143487, 8674879, 7817413 #### [facility] (DEFAULT) [address] [place] [address] Hemoglobin (Bld) [Mass/Vol] 12.6 g/dL Normal 11.3-15.9 [facility] Comment on above: Performed By: #### 7 036418, 30986280, 25482078, 55568454, 2637233091, 8750963300, 4153525, 9471003, 5610776 #### [facility] (DEFAULT) [address] [place] [address] Man Diff? Auto Normal [facility] Comment on above: Performed By: #### 7 238414, 53827601, 12226862, 08221134, 0894638934, 9365544392, 7333286, 6259846, 5125326 #### [facility] (DEFAULT) [address] [place] [address] 95478 MCH (RBC) [Entitic mass] 31 pg Normal 24-34 [facility] Comment on above: Performed By: #### 7 624539, 14245254, 50340873, 31879557, 8413670768, 1464364257, 3410784, 2314062, 1217007 #### [facility] (DEFAULT) [address] [place] [address] MCHC (RBC) [Mass/Vol] 34 g/dL Normal 26-37 [facility] Comment on above: Performed By: #### 7 025028, 37769021, 90073881, 16559097, 8425933292, 7561835561, 5175473, 6478799, 6351756 #### [facility] (DEFAULT) [address] [place] [address] 10215 MCV (RBC) [Entitic vol] 91 fL Normal 81-100 [facility] Comment on above: Performed By: #### 7 949039, 25375448, 15758955, 84895529, 7769479589, 8194620324, 5208891, 8423609, 1170345 #### [facility] (DEFAULT) [address] [place] [address] Platelet mean volume (Bld) [Entitic vol] 9.6 fL Normal 6.3-10.2 [facility] Comment on above: Performed By: #### 7 411884, 67377085, 68171229, 21303379, 4953926807, 3002953625, 8351948, 5949960, 0841458 #### [facility] (DEFAULT) [address] [place] [address] 72087 Platelets (Bld) [#/Vol] 379 x10 Normal 138-427 [facility] Comment on above: Performed By: #### 7 825950, 46000548, 43470399, 78401031, 2295891525, 2706343397, 5523271, 1753504, 7308915 #### [facility] (DEFAULT) [address] [address] RBC (Bld) [#/Vol] 4.02 x10 Normal 3.70-5.30 [facility] Comment on above: Performed By: #### 7 067583, 74095998, 49036301, 40696250, 0459448492, 8137578543, 3188904, 0712014, 1234458 #### [facility] (DEFAULT) [address] [place] [address] WBC (Bld) [#/Vol] 8.9 x10 [facility] Comment on above: Performed By: #### 7 625530, 49670462, 70050344, 39613635, 4083413597, 2031582663, 5087792, 6295204, 1823766 #### [facility] (DEFAULT) [address] [place] [address] CMP Standardon 07-29-2019 eGFR Non AA >60 [facility] Comment on above: Performed By: #### 7 161160, 60851954, 82931601, 90283370, 0513613619, 3331368418, 8315571, 2722939, 7043385 #### [facility] (DEFAULT) [address] [place] [address] eGFR AA >60 [facility] Comment on above: Result Comment: District Operations Manager christina Kidney disease could be indicated at eGFRs of less than 60 ml/min/1.73m2. Kidney Failure is indicated at less than 15 ml/min/1.73m2 Performed By: #### 7 055059, 06969629, 62786212, 38512514, 3343768235, 1388844559, 7378300, 7895516, 7798989 #### [facility] (DEFAULT) [address] [address] Albumin [Mass/Vol] 4.8 g/dL Normal 3.5-5.0 [facility] Comment on above: Performed By: #### 7 898025, 23888425, 87267851, 49545176, 5864506297, 6814232276, 3354026, 0190603, 6287302 #### [facility] (DEFAULT) [address] [place] [address] 92928 Albumin/Globulin [Mass ratio] 2.0 {ratio} Normal 1.4-2.6 [facility] Comment on above: Performed By: #### 7 437440, 75475956, 45039374, 19833864, 9936735776, 8384029196, 7644251, 6620394, 6893467 #### [facility] (DEFAULT) [address] [place] [address] 12630 Alk Phos 50 IU/L Normal 32-91 [facility] Comment on above: Performed By: #### 7 574354, 45794417, 89150484, 10699228, 4328540317, 4653028997, 1862422, 5657092, 8123823 #### [facility] (DEFAULT) [address] [place] [address] ALT/SGPT 13.0 IU/L Low 14.0-54.0 [facility] Comment on above: Performed By: #### 7 574124, 01291002, 68362345, 61129977, 1882291109, 8033145194, 5019055, 3972016, 5502137 #### [facility] (DEFAULT) [address] [place] [address] 90671 Anion gap [Moles/Vol] 15.0 mmol/L Normal 5.0-19.0 [facility] Comment on above: Performed By: #### 7 810398, 42179636, 73820646, 88258858, 8987451417, 3951619263, 8051204, 5522786, 5496356 #### [facility] (DEFAULT) [address] [place] [address] 30161 AST/SGOT 15 IU/L Normal 15-41 [facility] Comment on above: Performed By: #### 7 595306, 30707307, 72728115, 61438592, 6594951796, 6205994813, 9234439, 0344594, 8805813 #### [facility] (DEFAULT) [address] [place] [address] 71492 Bili Total 0.6 mg/dL Normal 0.3-1.2 [facility] Comment on above: Performed By: #### 7 550260, 65932445, 98419273, 89307887, 8011496287, 8581547052, 2472757, 0863743, 5997248 #### [facility] (DEFAULT) [address] [place] [address] 14525 Calcium [Mass/Vol] 9.4 mg/dL Normal 8.9-10.3 [facility] Comment on above: Performed By: #### 7 988917, 33109507, 37851541, 40243573, 4251375699, 8879070185, 2929860, 5130268, 6571491 #### [facility] (DEFAULT) [address] [place] [address] 86580 Chloride [Moles/Vol] 107 mmol/L Normal 101-111 [facility] Comment on above: Performed By: #### 7 695051, 65933438, 79295292, 77733800, 1547963849, 0689954955, 0800331, 8307536, 0376242 #### [facility] (DEFAULT) [address] [place] [address] 01586 CO2 [Moles/Vol] 22 mmol/L Normal 21-32 [facility] Comment on above: Performed By: #### 7 810718, 97010545, 38924063, 93608539, 6304556787, 7262120710, 9481952, 0815338, 8384423 #### [facility] (DEFAULT) [address] [place] [address] 51053 Creatinine [Mass/Vol] 0.58 mg/dL Low 0.60-1.30 [facility] Comment on above: Performed By: #### 7 660028, 62108576, 81412569, 62762340, 2630495923, 7696321885, 9159672, 7207863, 8487316 #### [facility] (DEFAULT) [address] [place] [address] 71031 Globulin (S) [Mass/Vol] 2.4 g/dL Normal 1.5-4.3 [facility] Comment on above: Performed By: #### 7 274444, 40916091, 07342951, 41345577, 3089672663, 1999946303, 4336654, 2573850, 0303916 #### [facility] (DEFAULT) [address] [place] [address] 29604 Glucose [Mass/Vol] 93.0 mg/dL Normal 74.0-118.0 [facility] Comment on above: Performed By: #### 7 699457, 84453690, 56307942, 40475280, 9771514946, 3023169476, 2329960, 1683867, 8740884 #### [facility] (DEFAULT) [address] [place] [address] 28428 Osmolality [Osmolality] 277 mOsm/L [facility] Comment on above: Performed By: #### 7 729646, 43179889, 19201730, 26271254, 5475232795, 9935782193, 8867940, 0417783, 3274231 #### [facility] (DEFAULT) [address] [place] [address] 17958 Potassium [Moles/Vol] 3.5 mmol/L Low 3.6-5.1 [facility] Comment on above: Performed By: #### 7 064795, 06404149, 25948873, 09981275, 0215888527, 0882325154, 4769975, 0424655, 0612384 #### [facility] (DEFAULT) [address] [place] [address] 84151 Protein [Mass/Vol] 7.2 g/dL Normal 6.5-8.1 [facility] Comment on above: Performed By: #### 7 078544, 67406648, 48096663, 01038972, 0370064572, 0418545662, 1969261, 5993117, 6991346 #### [facility] (DEFAULT) [address] [place] [address] 82304 Sodium [Moles/Vol] 140.0 mmol/L Normal 136.0-144.0 [facility] Comment on above: Performed By: #### 7 870759, 82570202, 71265249, 17168996, 7732452452, 0475379779, 6416684, 0866319, 1518292 #### [facility] (DEFAULT) [address] [place] [address] 77228 Urea nitrogen [Mass/Vol] 7 mg/dL Low 8-26 [facility] Comment on above: Performed By: #### 7 037940, 80693933, 73928282, 99074709, 4522673710, 8534244261, 7710432, 5971436, 1484830 #### [facility] (DEFAULT) [address] [place] [address] 89228 Urea nitrogen/Creatinine [Mass ratio] 12.0 mg/mg Normal 4.6-16.2 [facility] Comment on above: Performed By: #### 7 682100, 67512111, 66439433, 49297986, 1285207249, 6498098135, 5903824, 7983833, 4699241 #### [facility] (DEFAULT) [address] [place] [address] 31842 ED Clinical Summaryon 2018 ED Clinical Summary [facility] - Emergency Department [address] [place] [address] 29377 ED Clinical Summary PERSON INFORMATION Name: MELLISA SAUNDERS Age: 23 Years Sex: FEMALE : 1995 MRN: Acct#: Visit Reason: Vaginal bleeding - < 20 wks ; VAGINAL BLEEDING Arrival: 07/29/2019 07:42:00 Discharge: 07/29/2019 11:20:00 LOS: 000 03:38 Check In: 07/29/2019 07:42:00 Checkout:07/29/2019 11:20:00 Address: [address] [place] [address] PCP: Provider, None PROVIDER INFORMATION Provider Role [...] Subchorionic Hematoma Follow-Up: With: Address: When: Jenny Leary [address] [place], [place] [id number] Business (1) Within 3 to 5 days With: Address: When: None Provider Within 3 to 5 days DIAGNOSIS: Subchorionic hemorrhage in first trimester Patient Understands: Yes - Patient/family/caregi philipp verbalizes understanding of instructions given Comment: [facility] ED Note - Physicianon 2018 ED [...] Plan Diagnosis Subchorionic hemorrhage in first trimester ([id number] O41.8X10, Discharge, Medical) Plan Condition: Stable. Disposition: [...] on: 07/29/2019 11:30 EDT] Chandler Gallo MD [facility] ED Note-Nursingon 07-29-2019 ED Note-Nursing Pt arrives to ED wit h vaginal bleeding for about 1 hour. Pt states she is about 7 weeks and she is pooling blood. Pt states she went to the OB about 3 weeks ago and had a confirmed . Pt states she is having mild cramping. [facility] ED Patient Education Noteon 07-29-2019 ED [...] 01/29/2008 Document Revised: 12/10/2017 Document Reviewed: 12/10/2017 [employer] Patient Education ? 2018 [employer]. Normal [facility] ED Patient Summaryon 019 ED Patient Summary [facility] - Emergency Department [address] [place] [address] PATIENT DISCHARGE INSTRUCTIONS Patient Information Name: MELLISA SAUNDERS Age: 23 Years Date of : 1995 Reason For Visit: Vaginal bleeding - < 20 wks ; VAGINAL BLEEDING Arrival Time: 07/29/2019 07:42:00 Primary Care Physician: Provider, None Attending Physician: Chandler Gallo Comment: Visit Diagnosis: Diagnoses This Visit Subchorionic hemorrhage in first trimester (O41.8X10) Vaginal bleeding - < 20 wks ([id number]) Prescription Information: If you have been given a prescription for narcotics, seek immediate medical attention if you have any difficulty breathing or any sudden status changes such as confusion and sleepiness. If you or anyone you know is experiencing suicidal thoughts, mental health, alcohol and/or drug addiction problems; contact the [facility] 20/05 Crisis Hotline -Text 4HOPE to 840024. If you received any narcotics, sedation, or [...] documents With: Address: When: Jenny Leary [address] [place] [address] Business (1) Within 3 to 5 days With: Address: When: None Provider Within 3 to 5 days Medication Information: The exam and treatment you received today in the [facility] Department were for an urgent problem and are not intended as complete care. It is important for you to follow up with a doctor, nurse practitioner, or physician?s certified surgical tech/first assistant for ongoing care. If your symptoms [...] so we can reach you if necessary. [facility] Emergency Department has provided you with a complete list of medications post discharge. Please inform your primary therapist/provider of your visit and for further instruction [...] 01/29/2008 Document Revised: 12/10/2017 Document Reviewed: 12/10/2017 [employer] Patient Education ? 2019 [employer] Viruses or Bacteria What?s got you [...] for Disease Control and Prevention June 2014 [facility] PT/PTTon 07-29-2019 aPTT Coag (Bld) [Time] 31 second(s) Normal 25-35 [facility] Comment on above: Performed By: #### 7 012141, 96604362, 77041713, 84589420, 2647380755, 0563613403, 6415584, 0295178, 3653665 #### [facility] (DEFAULT) [address] [place] [address] INR Coag (PPP) [Relative time] 1.07 {INR} Normal 0.91-1.11 [facility] Comment on above: Performed By: #### 7 650928, 86169287, 92527776, 73319082, 2700007469, 8101136317, 4974799, 5240492, 4607467 #### [facility] (DEFAULT) [address] [address] PT Coag (PPP) [Time] 11.0 second(s) Normal 9.7-11.8 [facility] Comment on above: Performed By: #### 7 051721, 69698580, 00128024, 87311968, 4891068861, 8379462630, 1494475, 0449329, 7112523 #### [facility] (DEFAULT) [address] [address] RhIG.on 07-29-2019 RhIG. No. Vials RhI RhIG Candidate?: No Date to Give: [id number] RhIG Status: NA Normal [facility] Comment on above: Performed By: #### 7 504539, 65090412, 00263635, 11808574, 6779107362, 6915185980, 1860037, 9288433, 9860498 #### [facility] (DEFAULT) [address] [place] [address] UA [id number] 07-29-2019 RBC (U) [#/Vol] Few Normal [facility] Comment on above: Order Comment: Urina lysis Microscopic order added on by [employer] Expert Rules system. Performed By: #### 1 [id number], [id number] ####[facility] (DEFAULT)[address] [place] [address] 01212 UA Bacteria None [facility] Comment on above: Order Comment: Urina lysis Microscopic order added on by Discern Expert Rules system. Performed By: #### 1 138776487, [id number] ####[facility] (DEFAULT)[address] [place] [address] 55467 UA Renal Epi Rare [facility] Comment on above: Order Comment: Urina lysis Microscopic order added on by [employer] Expert Rules system. Performed By: #### 1 [id number], [id number] ####[facility] (DEFAULT)[address] [place] [address] 32233 UA Squam Epi Rare Normal [facility] Comment on above: Order Comment: Urina lysis Microscopic order added on by [employer] Expert Rules system. Performed By: #### 1 [id number], [id number] ####[facility] (DEFAULT)[address] [place] [address] 61152 UA Urothelial Cells Rare Abnormal None Seen [facility] Comment on above: Order Comment: Urina lysis Microscopic order added on by [employer] Expert Rules system. Performed By: #### 1 [id number], [id number] ####[facility] (DEFAULT)[address] [place] [address] 14008 UA WBC None Seen [facility] Comment on above: Order Comment: Urina lysis Microscopic order added on by [employer] Expert Rules system. Performed By: #### 1 [id number], [id number] ####[facility] (DEFAULT)[address] [place] [address] 18528 UA w Culture if Ind Standard on 07-29-2019 Breakpoint UA [facility] Comment on above: Performed By: #### 1 [id number], [id number] ####[facility] (DEFAULT)[address] [place] [address] 92184 Color (U) STRAW [facility] Comment on above: Performed By: #### 1 [id number], [id number] ####[facility] (DEFAULT)[address] [place] [address] 00444 Culture? No Normal Shelby [facility] Comment on above: Performed By: #### 1 [id number], [id number] ####[facility] (DEFAULT)[address] [place] [address]164 Glucose (U) [Mass/Vol] Negative [facility] Comment on above: Performed By: #### 1 [id number], [id number] ####[facility] (DEFAULT)[address] [place] [address] 80472 Ketones Ql (U) TRACE [facility] Comment on above: Performed By: #### 1 [id number], [id number] ####[facility] (DEFAULT)[address] [place] [address] 71909 Micro? Indicated [facility] Comment on above: Performed By: #### 1 [id number], [id number] ####[facility] (DEFAULT)[address] [place] [address] 19452 UA Bilirubin Negative Normal [facility] Comment on above: Performed By: #### 1 [id number], [id number] ####[facility] (DEFAULT)[address] [place] [address] 32429 UA Blood MODERATE Abnormal NEGATIVE [facility] Comment on above: Performed By: #### 1 [id number], [id number] ####[facility] (DEFAULT)[address] [place] [address] 68168 UA Clarity CLEAR Normal CLEAR [facility] Comment on above: Performed By: #### 1 [id number], [id number] ####[facility] (DEFAULT)[address] [place] [address] 35143 UA Leuk Est Negative Normal NEGATIVE [facility] Comment on above: Performed By: #### 1 [id number], [id number] ####[facility] (DEFAULT)[address] [place] [address] 50052 UA Nitrite Negative Normal NEGATIVE [facility] Comment on above: Performed By: #### 1 [id number], [id number] ####[facility] (DEFAULT)[address] [place] [address] 77044 UA pH 7.0 5-8 [facility] Comment on above: Performed By: #### 1 [id number], [id number] ####[facility] (DEFAULT)[address] [place] [address] UA Protein Negative Normal NEGATIVE [facility] Comment on above: Performed By: #### 1 [id number], [id number] ####[facility] (DEFAULT)[address] [place] [address] UA Spec Grav <=1.005 1.001-1.035 [facility] Comment on above: Performed By: #### 1 [id number], [id number] ####[facility] (DEFAULT)[address] [place] [address] 01361 UA Urobilinogen 0.2 mg/dL Normal 0.2-1.0 [facility] Comment on above: Performed By: #### 1 [id number], [id number] ####[facility] (DEFAULT)[address] [place] [address]296 Urine Source Clean Catch Normal [facility] Comment on above: Performed By: #### 1 [id number], [id number] ####[facility] (DEFAULT)[address] [place] [address] US 1st Trimesteron 07-29-2019 US 1st Trimester [...] MD 07/29/19 11:05 a Technologist: GEORGE ROBLEDO [facility] US Transvaginalon 07-29-2019 US Transvaginal EXAM: [...] 07/29/19 11:05 a Technologist: GEORGE ROBLEDO Normal [facility] hCG Quantitativeon 9 hCG Quantitative 29813.0 mIU/mL High 0.0-0.6 [facility] Comment on above: Result Comment: Resu lt confirmed by dilution Post-Menopausal Reference Range is: 0.1-11.6 mIU/mL Performed By: #### 7 [id number], [id number], [id number] ####[facility] (DEFAULT)[address] [place] [address] Vital Signs Date Time Vital Sign Value Performing Clinician Twila mills 12-03-2023 15:34-0500 Body mass index (BMI) [Ratio] 20.4 kg/m2 Cielo Kisha DO Work Phone: [facility] 12-03-2023 15:34-0500 Body weight 45.81 kg Cielo Kisha DO Work Phone: [facility] 12-03-2023 15:34-0500 Diastolic blood pressure 60 mm[Hg] Cielo Kisha DO Work Phone: [facility] 12-03-2023 15:34-0500 Systolic blood pressure 100 mm[Hg] Cielo Kisha DO Work Phone: [facility] Healthcare Encounters Encounter Date Encounter Type Care Provider Facility Start: 04-21-2024 End: 04-21-2024 ambulatory CIELO KISHA Not Available Start: 04-15-2024 End: 04-15-2024 ambulatory CILEO KISHA Not Available Start: 03-03-2024 End: 03-03-2024 ambulatory CIELO KISHA Not Available Start: 01-27-2024 End: 01-27-2024 ambulatory CIELO KISHA Not Available Start: 01-09-2024 End: 01-09-2024 ambulatory DRE CHUNG Not Available Start: 12-25-2023 End: 12-25-2023 ambulatory CIELO KISHA Not Available Start: 12-03-2023 End: 12-03-2023 flow sheet Cielo Kisha DO Work Phone: [facility] Comment on above: Second trimester pre gnancy; Mood changes Start: 12-03-2023 End: 12-03-2023 ambulatory CIELO KISHA Not Available Start: 11-30-2023 End: 11-30-2023 ambulatory [facility] Start: 11-25-2023 End: 11-25-2023 ambulatory DRE CHUNG Not Available Start: 11-04-2023 End: 11-04-2023 ambulatory CIELO KISHA Not Available Start: 05-13-2021 End: 05-14-[address] CIELO BEARD Facility:[facility] Start: 05-03-2021 End: 05-03-[address] CIELO BEARD Facility:[facility] Procedures Date Procedure Procedure Detail Performing Clinician Start: 12-03-2023 Urnls dip stick/tabl et rgnt non-auto w/o micrscp Cielo Kisha DO Work Phone: Plan of Treatment Date Care Activity Detail Author Start: 12-25-2023 End: 12-25-2023 Patient encounter procedure 12/25/2023 3:40 PM EST Routine [facility] [address] [place] [id number] Cielo Beard DO [address] [place] [address] [facility] Payers Date Payer Category Payer Medicaid [facility] MEDICAID [facility] MEDICAID [id number] 2023-Present [address] [place] [address] [id number] 2021 Unknown BCBS BCBS xxxxxx [id number] 2021-Present [phone] [address] [place] [address] [id number] 2021 Unknown [id number] 1997 Unknown [id number] 2.16.840.1.731125.3.579.2.593 1997 Unknown [id number] 2.16.840.1.692056.3.579.2.593 1997 Unknown [id number] 2.16.840.1.110080.3.579.2.1286 1997 Unknown [id number] 2.16.840.1.286801.3.579.2.1259 1997 Unknown [id number] 2.16.840.1.454776.3.579.2.1259 1997 Unknown [id number] 2.16.840.1.079072.3.579.2.1259 1997 Unknown [id number] 2.16.840.1.041343.3.579.2.1259 1997 Unknown [id number] 2.16.840.1.024011.3.579.2.1259 1997 Unknown [id number] 2.16.840.1.878794.3.579.2.1259 1997 Unknown [id number] 2.16.840.1.988733.3.579.2.1259 1997 Unknown [id number] 2.16.840.1.591050.3.579.2.1259 1997 Unknown [id number] 2.16.840.1.136625.3.579.2.1259 1959 Unknown [id number] Social History Date Type Detail Facility [facility] Start: 1995 Sex Assigned At Female [facility] Start: 09-23-2023 Gender identity Identifies as female gender (finding) [facility] Start: 09-23-2023 Sexual orientation Heterosexual (fin ding) [facility] Goals Date Patient Goal Desired Activity /State Personal health goal History of Present illness Narrative 12-03-2023 Sally BabinJOHANNA - 12/03/2023 3:30 PM EST Note Date [...] nursing note reviewed. 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 Vitals: Estimated body mass index is [...] and content) DATE CREATED AUTHOR 06/26/2020 [facility] DATE CREATED AUTHOR AUTHOR'S ORGANIZ ATION 02/28/2022 [facility] DATE CREATED AUTHOR AUTHOR'S ORGANIZ ATION 12/02/2023 [facility] DATE CREATED AUTHOR AUTHOR'S ORGANIZ ATION 04/22/2024 [facility] EPIC Reason for Visit (unrecogniz ed [...] BE BASED ON THE PRIMARY CLINICAL RECORDS. [facility] [employer] [facility]. provides no warranty or guarantee of the accuracy or completeness of information in this document.
[2024-12-04 13:09] LABS: Age Gdln ACOG Testing Note (.); IGP, rfx Aptima HPV ASCU Note (.)
== END 2024-11-30 21:34 | disposition home or self-care (01) ==
LOC: LAB 21:33
PROVIDERS: Visit Provider Obstetrics & Gynecology
DX: Z01.419 Encounter for gynecological examination (general) (routine) without abnormal findings (principal)
CPT/HCPCS: 88175